=== PATIENT | male | born 1950 | race Caucasian/White ===

== ENCOUNTER 2023-01-09 11:34 | Outpatient (OUT) | payer MEDICARE, SELFPAY ==
[2023-01-09 12:40] LABS: Basophils Absolute Auto 0.1 10^3/uL (0.0-0.1); Basophils Percent Auto 1.1 % (0.2-2.0); Eosinophils Absolute Auto 0.2 10^3/uL (0.0-0.7); Eosinophils Percent Auto 3.1 % (0.9-7.0); Hematocrit 43.9 % (42.0-54.0); Hemoglobin 15.7 g/dL (14.0-18.0); Immature Granulocytes Abs Auto 0.02 10^3/uL (0.00-0.03); Immature Granulocytes Pct Auto 0.3 % (0.0-0.5); Lymphocytes Absolute Auto 1.9 10^3/uL (1.2-3.8); Mean Corpuscular HGB Conc 35.8 g/dL (29.9-35.2); Mean Corpuscular Hemoglobin 33.2 pg (25.9-34.0); Mean Corpuscular Volume 92.8 fL (80.0-94.0); Mean Platelet Volume 9.8 fL (9.5-13.5); Monocytes Absolute Auto 0.6 10^3/uL (0.3-0.8); Monocytes Percent Auto 7.9 % (1.7-12.0); Neutrophils Absolute Auto 4.7 10^3/uL (1.4-6.5); Neutrophils Percent Auto 62.6 % (43.0-75.0); Platelet Count 226 10^3/uL (150-450); Red Blood Count 4.73 10^6/uL (4.70-6.10); Red Cell Distribution Width 12.1 % (11.0-15.0); White Blood Count 7.5 10^3/uL (4.0-11.0)
[2023-01-09 13:40] LABS: Alanine Aminotransferase 39 U/L (16-63); Anion Gap 12.7; BUN Creatinine Ratio 19.8; Calcium 9.1 mg/dL (8.5-10.1); Carbon Dioxide 28.8 mmol/L (21.0-32.0); Chloride 105 mmol/L (98-107); Chol HDL Ratio 3.9; Cholesterol 165 mg/dL (<=200); Estimated GFR (African America >60 (>=60); Estimated GFR (Non-African Ame >60 (>=60); Glucose 103 mg/dL (74-106); HDL Cholesterol 42 mg/dL (40-60); LDL Cholesterol Calculated 103.4 mg/dL; Potassium 4.5 mmol/L (3.5-5.1); Sodium 142 mmol/L (136-145); Triglycerides 98 mg/dL (<=150); VLDL CHOLESTEROL 19.6 mg/dL
[2023-01-09 13:54] LABS: Prostate Specific Antigen Scrn 1.67 ng/mL (<=4.00)
[2023-01-09 15:08] LABS: Estimated Average Glucose 100 mg/dL; Glycohemoglobin A1C 5.1 % (4.5-6.2)
== END 2023-01-09 11:35 | disposition home or self-care (01) ==
LOC: LAB 11:40
PROVIDERS: PCP Internal Medicine; Visit Provider Internal Medicine
DX: I10 Essential (primary) hypertension (principal); E78.00 Pure hypercholesterolemia, unspecified; Z12.5 Encounter for screening for malignant neoplasm of prostate; R73.01 Impaired fasting glucose; Z79.899 Other long term (current) drug therapy
CPT/HCPCS: 36415; 80048; 80061; 83036; 84460; 85025; G0103

== ENCOUNTER 2024-01-11 11:22 | Outpatient (OUT) | payer MEDICARE, SELFPAY ==
[2024-01-11 11:39] LABS: Basophils Absolute Auto 0.1 10^3/uL (0.0-0.1); Basophils Percent Auto 0.8 % (0.2-2.0); Eosinophils Absolute Auto 0.2 10^3/uL (0.0-0.7); Eosinophils Percent Auto 2.6 % (0.9-7.0); Hematocrit 46.5 % (42.0-54.0); Hemoglobin 16.5 g/dL (14.0-18.0); Immature Granulocytes Abs Auto 0.02 10^3/uL (0.00-0.03); Immature Granulocytes Pct Auto 0.3 % (0.0-0.5); Lymphocytes Absolute Auto 1.8 10^3/uL (1.2-3.8); Mean Corpuscular HGB Conc 35.5 g/dL (29.9-35.2); Mean Corpuscular Hemoglobin 31.7 pg (25.9-34.0); Mean Corpuscular Volume 89.4 fL (80.0-94.0); Mean Platelet Volume 9.2 fL (9.5-13.5); Monocytes Absolute Auto 0.6 10^3/uL (0.3-0.8); Monocytes Percent Auto 8.2 % (1.7-12.0); Neutrophils Percent Auto 65.1 % (43.0-75.0); Platelet Count 208 10^3/uL (150-450); Red Cell Distribution Width 11.8 % (11.0-15.0); White Blood Count 7.7 10^3/uL (4.0-11.0)
[2024-01-11 12:21] LABS: Alanine Aminotransferase 37 U/L (16-63); Albumin Globulin Ratio 1.2; Albumin Level 3.7 g/dL (3.4-5.0); Alkaline Phosphatase 80 U/L (46-116); Anion Gap 12.8; Aspartate Amino Transferase 22 U/L (15-37); BUN Creatinine Ratio 13.3; Bilirubin Total 0.9 mg/dL (0.2-1.0); Calcium 8.8 mg/dL (8.5-10.1); Carbon Dioxide 25.3 mmol/L (21.0-32.0); Chloride 105 mmol/L (98-107); Chol HDL Ratio 3.4; Cholesterol 149 mg/dL (<=200); Estimated GFR (African America >60 (>=60 mL/min/1.73m^2); Estimated GFR (Non-African Ame >60 (>=60 mL/min/1.73m^2); Globulin 3.1 g/dL; Glucose 111 mg/dL (74-106); HDL Cholesterol 44 mg/dL (40-60); LDL Cholesterol Calculated 84.8 mg/dL; Potassium 4.1 mmol/L (3.5-5.1); Sodium 139 mmol/L (136-145); Total Protein 6.8 g/dL (6.4-8.2); Triglycerides 101 mg/dL (<=150); VLDL CHOLESTEROL 20.2 mg/dL
[2024-01-11 12:36] LABS: Prostate Specific Antigen Scrn 1.73 ng/mL (<=4.00)
[2024-01-11 12:41] LABS: Estimated Average Glucose 100 mg/dL; Glycohemoglobin A1C 5.1 % (4.5-6.2)
== END 2024-01-11 11:23 | disposition home or self-care (01) ==
LOC: LAB 11:24
PROVIDERS: PCP Internal Medicine; Visit Provider Internal Medicine
DX: R73.01 Impaired fasting glucose (principal); E78.00 Pure hypercholesterolemia, unspecified; I10 Essential (primary) hypertension; Z12.5 Encounter for screening for malignant neoplasm of prostate
CPT/HCPCS: 36415; 80053; 80061; 83036; 85025; G0103

== ENCOUNTER 2025-01-14 12:09 | Outpatient (OUT) | payer MEDICARE, SELFPAY ==
--- OUTSIDE RECORDS SUMMARY | 2025-01-14 12:20 | XMS_ITS | CCD ---
Author Organization [facility] Care Team Providers Care Cooperer Name Role Phone Mark Mendoza Unavailable DO Ze Howard Primary Care Provider MD Mandeep Ortiz Attending Provider [phone] Emilee Schwab Unavailable MD Mark Mendoza Attending Provider LEE, DR KUNZ Admitting Unavailable BALL, DR KUNZ Attending Unavailable BALL, DR KUNZ Primary Care Unavailable LEE, DR KUNZ Consulting Unavailable BALL, DR KUNZ Admitting Unavailable BALL, DR KUNZ Attending Unavailable BALL, DR KUNZ Primary Care Unavailable BALL, DR KUNZ Consulting Unavailable WEST, DR INGRID Stuart Consulting Unavailable CARRASQUILLO, DR MICHELLE Brock Admitting Unavailable CARRASQUILLO, DR MICHELLE Brock Attending Unavailable BALL, DR KUNZ Primary Care Unavailable PENNY, DR MARGARITA Abel Consulting Unavailable CARRASQUILLO, DR MICHELLE Brock Consulting Unavailable CARRASQUILLO, DR MICHELLE Brock Admitting Unavailable CARRASQUILLO, DR MICHELLE Brock Attending Unavailable BALL, DR KUNZ Primary Care Unavailable Mary Jo Kim Unavailable DO Ze Howard Primary Care Provider [phone] MD Mark Mendoza Attending Provider Ze Howard Unavailable DO Ze Howard Primary Care Provider MD Jesus Aiken II Attending Provider Jesus Aiken II Unavailable Mark Harris Unavailable DO Ze Howard Primary Care Provider [phone] MD Mark Harris Attending Provider MD Jesus Aiken II Attending Provider DO Ze Howard Primary Care Provider MD Mark Harris Attending Provider MD Jesus Aiken II Attending Provider BallDO Kunz Primary Care Provider MD Mark Harris Attending Provider Ball DO, Ze Primary Care Provider Mark Harris MD Attending Provider Ball DO, Ze Primary Care Provider Ball DO, Ze Attending Provider Mark Harris MD Attending Provider Mark Harris MD Other Provider Mark Harris Admitting Unavailable Feltmelissa, Mark Attending Unavailable Ball, Ze Primary Care Unavailable Feltmelissa, Mark Admitting Unavailable Felter, Mark Attending Unavailable Ball, Ze Primary Care Unavailable Felter, Mark Admitting Unavailable Felter, Mark Attending Unavailable Ball, Ze Primary Care Unavailable Felter, Mark Admitting Unavailable Felter, Mark Attending Unavailable Ball, Ze Primary Care Unavailable Felter, Mark Admitting Unavailable Felter, Mark Attending Unavailable Ball, Ze Primary Care Unavailable Allergies Allergy Classification Reported Allergen(s) Allergy Type Date of Onset Reaction(s) Facility (20 sources) Penicillin Drug Allergy Unknown, lip swelling [facility] Other (8 sources) Penicillins; Translations: [Penicillins] Allergy to substance 01-27-20 Swelling [facility] (3 sources) Allergies Reconciled Propensity to adverse reactions Unknown [facility] Other (3 sources) Substance with penicillin structure and antibacterial mechanism of action (substance) Drug allergy Unknown [facility] Other (3 sources) patient allergy list reviewed by nurse or physicia Propensity to adverse reactions 01-25-20 Comment:Done [facility] Other Medications Current Medications Medication Drug Class(es) Dates Sig (Normalized) Sig (Original) acetaminophen 325 mg / oxyCODONE hydrochloride 5 mg oral tablet (10 sources) Opioid Agonist Start: 02-01-2022 take 1 tablet by mouth every four hours as needed for pain Percocet 5-325 MG 1 tablet as needed for pain Orally up to every 4 hrs for 5 days MARC: [id number] Jan, Active take 1 tablet by mouth every fou r to six hours as needed Aspir-81 81 MG (20 sources) take 1 tablet by mouth once cindy y take 1 tablet by mouth once cindy y Aspir-81 81 MG 1 tablet Orally Once a day for 30 day(s) Active aspirin 81 mg oral tablet (20 sources) Platelet Aggregation Inhibitor, Nonsteroidal Anti-inflammatory Drug Start: 01-26-2022 take 1 capsule by mouth once daily Aspirin 81 mg Capsule Active 81 MG PO Daily January 26, 2022 12:00am Complies with drug therapy atorvastatin 20 mg oral tablet (20 sources) HMG-CoA Reductase Inhibitor Start: 05-02-2024 Atorvastatin 20 mg tablet Active 0 .ROUTE .COMPLEX May 02, 2024 7:52am TAKE 1 TABLET DAILY EVERY EVENING Complies with drug therapy Start: 01-26-2022 End: 05-02-2024 take 1 tablet by mouth once daily Atorvastatin 20 mg tablet Discontinued 20 MG PO Daily January 26, 2022 12:00am May 02, 2024 7:52am benazepril hydrochloride 10 mg oral tablet (20 sources) Angiotensin Converting Enzyme Inhibitor Start: 05-02-2024 Benazepril 10 mg tablet Active 0 .ROUTE .COMPLEX 90 May 02, 2024 7:52am TAKE 1 TABLET DAILY Complies with drug therapy Start: 05-02-2024 Benazepril 10 mg tablet Active 0 .ROUTE .COMPLEX 90 May 02, 2024 7:52am TAKE 1 TABLET DAILY Start: 01-26-2022 End: 05-02-2024 take 1 tablet by mouth once daily Benazepril 10 mg tablet Discontinued 10 MG PO Daily January 26, 2022 12:00am May 02, 2024 7:52am calcium carbonate 1250 mg chewable tablet (20 sources) Start: 07-07-2023 take 1 tablet by mouth twice daily Calcium Carbonate 500 mg calcium (1,250 mg) tablet,chewable Active 500 MG PO Twice daily July 07, 2023 12:00am Complies with drug therapy Start: 07-07-2023 take 500 mg by mouth four times daily Calcium Carbonate Active 500 MG PO Four times daily July 07, 2023 12:00am take 1 tablet by aniya th four times daily Calcium Carbonate 500 MG 1 tablet Orally four times a day for 30 day(s) Active ciprofloxacin 500 mg oral tablet (3 sources) Quinolone Antimicrobial Start: 02-01-2022 take 1 tablet by mouth every twelve hours Cipro 500 MG 1 tablet Orally every 12 hrs for 2 day(s) Jan, Active meloxicam 15 mg oral tablet (20 sources) Nonsteroidal Anti-inflammatory Drug Start: 02-22-2024 take 1 tablet by mouth once daily Meloxicam 15 mg tablet Active 0 .ROUTE .COMPLEX February 22, 2024 9:15am TAKE 1 TABLET BY MOUTH EVERY DAY FOR 90 DAYS Complies with drug therapy Start: 11-10-2022 End: 02-22-2024 take 1 tablet by mouth once daily Meloxicam 15 mg tablet Discontinued 15 MG PO Daily February 28, 2023 1:00am February 22, 2024 9:15am methylPREDNISolone 4 mg oral tablet (2 sources) Corticosteroid Start: 05-16-2022 methylPREDNISolone 4 MG as directed Orally for 6 days May, Active 24 hr metoprolol succinate 25 mg extended release oral tablet (20 sources) beta-Adrenergic Martir Start: 05-02-2024 Metoprolol Succinate 25 mg tablet extended release 24 hr Active 0 .ROUTE .COMPLEX May 02, 2024 7:51am TAKE 1 TABLET DAILY Complies with drug therapy Start: 05-02-2024 Metoprolol Suc cinate 25 mg tablet extended release 24 hr Active 0 .ROUTE .COMPLEX May 02, 2024 7:51am TAKE 1 TABLET DAILY Start: 01-26-2022 End: 05-02-2024 take 1 tablet by mouth once daily Metoprolol Succinate 25 mg tablet extended release 24 hr Discontinued 25 MG PO Daily January 26, 2022 12:00am May 02, 2024 7:51am Multi Vitamin/Minerals (20 sources) Multi Vitamin/Mi nerals as directed Orally Once a day Active naproxen sodium 220 mg oral tablet (5 sources) Nonsteroidal Anti-inflammatory Drug take 1 tablet by mouth every twelve hours at mealtime as needed Naproxen Sodium 220 MG 1 tablet with food or milk as needed Orally every 12 hrs Active tamsulosin hydrochloride 0.4 mg oral capsule (20 sources) alpha-Adrenergic Martir Start: Tamsulosin 0.4 mg capsule Active 0 .ROUTE .COMPLEX 90 May 02, 2024 7:52am TAKE 1 CAPSULE DAILY Complies with drug therapy Start: 05-02-2024 Tamsulosin 0.4 mg capsule Active 0 .ROUTE .COMPLEX 90 May 02, 2024 7:52am TAKE 1 CAPSULE DAILY Start: 01-26-2022 End: 05-02-2024 take 1 capsule by mouth once daily Tamsulosin 0.4 mg capsule Discontinued 0.4 MG PO Daily January 26, 2022 12:00am May 02, 2024 7:53am triamcinolone acetonide 0.005 mg/mg topical ointment (20 sources) Corticosteroid Start: 03-22-2024 Triamcinolone Acetonide 0.5 % ointment Active 0 .ROUTE .COMPLEX March 22, 2024 7:48am APPLY 1 APPLICATION EXTERNALLY TWICE A DAY FOR 90 DAYS Complies with drug therapy Start: 03-22-2024 Triamcinolone Acetonide 0.5 % ointment Active 0 .ROUTE .COMPLEX 45 March 22, 2024 7:48am APPLY 1 APPLICATION EXTERNALLY TWICE A DAY FOR 90 DAYS Start: 07-07-2023 End: 03-22-2024 Triamcinolone Acetonide 0.5 % ointment Discontinued 1 APPLIC TOPICAL Twice daily as needed for excema July 07, 2023 12:00am March 22, 2024 7:49am Start: 11-10-2022 Kenalog-40 Nov, 120 mg Start: 08-04-2022 Triamcinolone Acetonide 0.5 % 1 application Externally Twice a day for 90 days Jul, Active Start: 04-23-2018 Kenalog -40 mg Apr, 40 mg Start: 02-28-2017 Kenalog -40 mg Feb, Warfarin (7 sources) Vitamin K Antagonist take 1 tablet by mouth once daily Completed/Discontinued Medications Medication Drug Class(es) Dates Sig (Normalized) Sig (Original) diclofenac sodium 0.01 mg/mg topical gel (20 sources) Nonsteroidal Anti-inflammatory Drug Start: 07-07-2023 End: 10-29-2024 Diclofenac Sodium (Voltaren Arthritis Pain) 1 % gel Discontinued 2 GM TOPICAL Daily as needed for pain July 07, 2023 12:00am October 29, 2024 7:56am Apply 1-2 grams to the affected area Externally 4-5 times a day; Start: 11-10-2022 Voltaren 1 % A pply 1-2 grams to the affected area Externally 4-5 times a day for 30 days Nov, Active Start: 11-10-2022 Voltaren 1 % A pply 1-2 grams to the affected area Externally 4-5 times a day for 30 days Nov, Active Start: 01-26-2022 End: 02-28-2023 take 1 tablet by mouth once daily Diclofenac Sodium 75 mg tablet,delayed release (DR/EC) Discontinued 75 MG PO Daily January 26, 2022 12:00am February 28, 2023 10:24am take 1 tablet by aniya th every twelve hours Diclofenac Sodium 75 MG 1 tablet with food or milk Orally Twice a day for 30 day(s) Active traMADol hydrochloride 50 mg oral tablet (20 sources) Opioid Agonist Start: 01-26-2022 End: 02-28-2023 take 1 tablet by mouth once daily as needed for pain Tramadol 50 mg tablet Discontinued 50 MG PO Daily as needed for Pain January 26, 2022 12:00am February 28, 2023 10:24am Problems Active Problems Problem Classification Problem Date Documented Date Episodic/Chronic Allergic reactions (4 sources) Dermatitis, unspecified; Translations: [Contact dermatitis] Episodic Crushing injury or internal injury (6 sources) Traumatic pneumothorax without open wound into thorax; Translations: [Traumatic pneumothorax without mention of open wound into thorax] Episodic Diabetes mellitus with complications (6 sources) Hyperglycemia due to type 2 diabetes mellitus; Translations: [Type 2 diabetes mellitus with hyperglycemia] Onset: 04-10-1959 Chronic Diabetes mellitus without complication (3 sources) Type 2 diabetes mellitus without complication; Translations: [Diabetes mellitus without mention of complication, type II or unspecified type, not stated as uncontrolled] Chronic Diabetes mellitus without complication (20 sources) Impaired fasting glycemia; Translations: [Impaired fasting glucose] Episodic Disorders of lipid metabolism (20 sources) Pure hypercholesterolemia, unspecified; Translations: [Pure hypercholesterolemia] Onset: 02-11-2015 Chronic Essential hypertension (20 sources) Essential (primary) hypertension; Translations: [Essential hypertension] Onset: 04-10-1959 Chronic Fracture of lower limb (20 sources) Fracture of upper end of tibia; Translations: [Fracture of upper end of tibia] Episodic Genitourinary symptoms and ill-defined conditions (1 source) Nocturia Episodic Hyperplasia of prostate (20 sources) Benign prostatic hypertrophy with outflow obstruction; Translations: [Hypertrophy (benign) of prostate with urinary obstruction and other lower urinary tract symptoms [LUTS]] Onset: 06-13-2017 Chronic Immunizations and screening for infectious disease (4 sources) Encounter for immunization; Translations: [Vaccination given] Episodic Osteoarthritis (20 sources) Osteoarthritis of knee; Translations: [Unilateral primary osteoarthritis, right knee] Onset: 10-14-2024 Chronic Other aftercare (2 sources) Other senior care (current) drug therapy; Translations: [[employer] CURRENT DRUG THERAPY] Onset: 01-10-2022 Episodic Other aftercare (3 sources) Long-term current use of drug therapy; Translations: [Other senior care (current) drug therapy] Episodic Other circulatory disease (3 sources) Elevated blood-pressure reading without diagnosis of hypertension; Translations: [Elevated blood-pressure reading, without diagnosis of hypertension] Episodic Other congenital anomalies (3 sources) Congenital pes planus; Translations: [Congenital pes planus, unspecified foot] Onset: 11-23-2015 Chronic Other congenital anomalies (3 sources) Congenital spondylolysis of lumbosacral region; Translations: [Congenital spondylolysis, lumbosacral region] Onset: 12-17-2015 Chronic Other connective tissue disease (1 source) Other enthesopathies, not elsewhere classified; Translations: [OTHER ENTHESOPATHIES NEC] Onset: 01-22-2022 Episodic Other fractures (12 sources) Closed fracture of rib; Translations: [FRACTURE RIB NOS-CLOSED] Episodic Other injuries and conditions due to external causes (3 sources) History of fall; Translations: [History of falling] Episodic Other nervous system disorders (20 sources) Chronic pain; Translations: [Other chronic pain] 11-21-2023 Chronic Other nervous system disorders (17 sources) Other chronic pain; Translations: [Other chronic pain] Onset: 01-23-2024 Chronic Other non-traumatic joint disorders (4 sources) Pain in left shoulder; Translations: [PAIN IN LEFT SHOULDER] Onset: 01-20-2022 Episodic Other non-traumatic joint disorders (3 sources) Shoulder joint pain; Translations: [Pain in left shoulder] Episodic Other nutritional; endocrine; and metabolic disorders (12 sources) Obese class II; Translations: [Body mass index (BMI) 38.0-38.9, adult] Onset: 04-10-1959 Chronic Other nutritional; endocrine; and metabolic disorders (3 sources) Body mass index 40+ - severely obese; Translations: [Body mass index (BMI) 40.0-44.9, adult] Onset: 04-10-1959 Chronic Other nutritional; endocrine; and metabolic disorders (17 sources) Obesity; Translations: [Obesity, unspecified] 07-10-2023 Chronic Other nutritional; endocrine; and metabolic disorders (3 sources) Morbid obesity; Translations: [Morbid (severe) obesity due to excess calories] Chronic Other nutritional; endocrine; and metabolic disorders (5 sources) Obesity, unspecified; Translations: [Obesity, unspecified] 01-11-2024 Chronic Other screening for suspected conditions (not mental disorders or infectious disease) (18 sources) Encounter for screening for malignant neoplasm of prostate; Translations: [Patient encounter status] Onset: 01-10-2022 Episodic Comment on above: PSA: 1.Jan, 1.Jan, Other skin disorders (3 sources) Vesicular eczema of hands and/or feet; Translations: [Dyshidrosis [pompholyx]] Episodic Other skin disorders (3 sources) Hypertrophic condition of skin; Translations: [Other hypertrophic disorders of the skin] Episodic Other upper respiratory infections (6 sources) Acute maxillary sinusitis; Translations: [Acute maxillary sinusitis, unspecified] Onset: 06-13-2017 Episodic Residual codes; unclassified (6 sources) Other specified postprocedural states Episodic Residual codes; unclassified (3 sources) Tobacco user; Translations: [Tobacco use] Episodic Spondylosis; intervertebral disc disorders; other back problems (20 sources) Lumbosacral spondylosis without myelopathy; Translations: [Spondylosis without myelopathy or radiculopathy, lumbar region] Onset: 12-18-2023 Chronic Sprains and strains (9 sources) Strain of muscle(s) and tendon(s) of the rotator cuff of left shoulder, initial encounter; Translations: [Strain of muscle(s) and tendon(s) of the rotator cuff of left shoulder, subsequent encounter] Episodic Superficial injury; contusion (6 sources) Contusion of left foot, initial encounter; Translations: [Contusion of left heel] 08-08-2024 Episodic Unclassified (3 sources) Long-term current use of drug therapy; Translations: [Long-term (current) use of other medications] Onset: 09-18-2017 Unclassified (1 source) Call Dr. Miles office to schedule a follow up appointment if you do not already have one scheduled Viral infection (3 sources) Verruca vulgaris; Translations: [Viral warts, unspecified] Episodic Viral infection (3 sources) Disease caused by 2019-nCoV; Translations: [COVID-19] Past or Other Problems Problem Classification Problem Date Documented Date Episodic/Chronic Bacterial infection; unspecified site (3 sources) Bacterial infectious disease; Translations: [Bacterial infection, unspecified, in conditions classified elsewhere and of unspecified site] Onset: 06-14-19 18 Episodic E Codes: Adverse effects of medical drugs (3 sources) Lipid-lowering drug adverse reaction; Translations: [Adverse effect of antihyperlipidemic and antiarteriosclerotic drugs, initial encounter] Onset: 02-01-20 16 Episodic Inflammation; infection of eye (except that caused by tuberculosis or sexually transmitteddisease) (3 sources) Viral pharyngoconjunctivitis ; Translations: [Viral pharyngoconjunctivitis] Onset: 09-08-19 18 Episodic Other connective tissue disease (3 sources) Plantar fascial fibromatosis; Translations: [Plantar fascial fibromatosis] Onset: 11-23-19 16 Episodic Other connective tissue disease (3 sources) Myalgia/myositis - multiple; Translations: [Unspecified myalgia and myositis] Onset: 02-12-20 15 Episodic Other non-traumatic joint disorders (3 sources) Arthralgia of the lower leg; Translations: [Pain in right knee] Onset: 02-08-20 17 Episodic Residual codes; unclassified (3 sources) Requires influenza virus vaccination; Translations: [Need for prophylactic vaccination and inoculation, Influenza] Onset: 01-23-20 18 Episodic Spondylosis; intervertebral disc disorders; other back problems (3 sources) Low back pain; Translations: [Low back pain, unspecified] Onset: 12-17-19 16 Episodic Results Test Name Value Interpretation Reference Range Facility X-ray reportOrdered By: Suleman Balderrama on 10-14-2024 Study report [facility] [address] [place] [address] XRay Report Signed Patient: Bruce Stanton MR#: [id number] : 1950 Acct:[id number] Age/Sex: 74 / M ADM Date: 5 Loc: SOXD Room: Type: REG CLI Attending Dr: Mark Harris MD Copies to: Mark Harris MD~ Ordering Provider: Mark Harris MD Date of Service: 10/14/24 XR/XR knee RT 2V: M17.11 - Unilateral primary osteoarthritis, right knee XR knee RT 2V 10/14/2024 10:13 AM SIGNS AND SYMPTOMS: Right knee pain PROTOCOL: Frontal and lateral radiographs of the right knee COMPARISON: 05/16/2023 FINDINGS: There is severe narrowing of the medial weightbearing joint space which is worsewhen compared with prior exam. There is chondrocalcinosis of menisci suggestingunderlying CPPD. There is significant patellofemoral joint space loss. There is a small joint effusion. No soft tissue swelling. No fracture. XR/XR knee RT 2V IMPRESSION: Worsening degenerative changes of the right knee, greatest in the medial weightbearing compartment. Impression dictated by: Suleman Balderrama M.D. 10/14/2024 1:53 PM Dictation Location: [place] [address] Transcribed By: [facility] 10/14/24 1353 Dictated By: Suleman Balderrama II, MD 10/14/24 1352 Signed By: 10/14/24 [facility] Work Phone: XR knee RT 2Von 10-14-2024 XR knee RT 2V [facility] [address] [place] [address] XRay Report Signed Patient: Bruce Stanton MR#: [id number] : 1950 Acct:[id number] Age/Sex: 74 / M ADM Date: 10/14/24 Loc: [facility] Room: Type: [facility] CLI Attending Dr: Mark Harris MD Copies to: Mark Harris MD Ordering Provider: Mark Harris MD Date of Service: 10/14/24 XR/XR knee RT 2V: M17.11 - Unilateral primary osteoarthritis, right knee XR knee RT 2V 10/14/2024 10:13 AM SIGNS AND SYMPTOMS: Right knee pain PROTOCOL: Frontal and lateral radiographs of the right knee COMPARISON: 05/16/2023 FINDINGS: There is severe narrowing of the medial weightbearing joint space which is worse when compared with prior exam. There is chondrocalcinosis of menisci suggesting underlying CPPD. There is significant patellofemoral joint space loss. There is a small joint effusion. No soft tissue swelling. No fracture. XR/XR knee RT 2V IMPRESSION: Worsening degenerative changes of the right knee, greatest in the medial weightbearing compartment. Impression dictated by: Suleman Balderrama M.D. 10/14/2024 1:53 PM Dictation Location: [place] [address] Transcribed By: [facility] 10/14/24 1353 Dictated By: Suleman Balderrama II, MD 10/14/24 1352 Signed By: 10/14/24 1353 Normal [facility] Basophils Auto (Bld) [#/Vol] on 01-11-2024 Basophils (Bld) [#/Vol] 0.1 10 3/uL 0.0-0.1 [facility] Basophils (Bld) [#/Vol] Automated basophil count 0.0-0.1 [facility] Basophils/100 WBC Auto (Bld) on 01-11-2024 Basophils/100 WBC (Bld) 0.8 % 0.2-2.0 [facility] Basophils/100 WBC (Bld) Automated basophil % 0.2-2.0 [facility] Cholesterol in LDL Calc [Mas s/Vol]on 01-11-2024 Cholesterol in LDL [Mass/Vol] 84.8 mg/dL [facility] Comment on above: <100 mg/dl [id number] 0-129 mg/dl NEAR OR ABOVE [id number] mg/dl BORDERLINE [id number] mg/dl HIGH>190 mg/dl VERY HIGH Cholesterol in LDL [Mass/Vol] Cholesterol in LDL [Mass/volume] in Serum or Plasma by calculation [facility] Comment on above: <100 mg/dl [id number] 0-129 mg/dl NEAR OR ABOVE [id number] mg/dl BORDERLINE [id number] mg/dl HIGH>190 mg/dl VERY HIGH Cholesterol in VLDL Calc [Ma ss/Vol]on 01-11-2024 Cholesterol in VLDL [Mass/Vol] 20.2 mg/dL [facility] Cholesterol in VLDL [Mass/Vol] Cholesterol in VLDL [Mass/volume] in Serum or Plasma by calculation [facility] Eosinophils/100 WBC Auto (Bl d)on 01-11-2024 Eosinophils/100 WBC (Bld) 2.6 % 0.9-7.0 [facility] Eosinophils/100 WBC (Bld) Automated eosinophil % 0.9-7.0 [facility] Erythrocyte distribution wid th Auto (RBC) [Ratio]on 01-11-2024 Erythrocyte distribution width (RBC) [Ratio] 11.8 % 11.0-15.0 [facility] Erythrocyte distribution width (RBC) [Ratio] Erythrocyte distribution width [Ratio] by Automated count 11.0-15.0 [facility] Estimated glomerular filtrat ion rate (GFR) non- Americanon 01-11-2024 GFR/1.73 sq M.predicted among non-blacks MDRD (S/P/Bld) [Vol rate/Area] mL/min/{1.73_m2} >=60 mL/min/1.73 m 2 [facility] GFR/1.73 sq M.predicted among non-blacks MDRD (S/P/Bld) [Vol rate/Area] Estimated glomerular filtration rate (GFR) non- >=60 mL/min/1.73 m 2 [facility] Globulin Calc (S) [Mass/Vol] on 01-11-2024 Globulin (S) [Mass/Vol] 3.1 g/dL [facility] Globulin (S) [Mass/Vol] Serum globulin measurement by calculation (mass/volume) [facility] Glucose mean value [Mass/vol ume] in Blood Estimated from glycated hemoglobinon 01-11-2024 Average glucose Estimated from glycated hemoglobin (Bld) [Mass/Vol] 100 mg/dL [facility] Average glucose Estimated from glycated hemoglobin (Bld) [Mass/Vol] Glucose mean value [Mass/volume] in Blood Estimated from glycated hemoglobin [facility] Hematocrit Auto (Bld) [Volum e fraction]on 01-11-2024 Hematocrit (Bld) [Volume fraction] 46.5 % 42.0-54.0 [facility] Hematocrit (Bld) [Volume fraction] Hematocrit [Volume Fraction] of Blood by Automated count 42.0-54.0 [facility] Hemoglobin [Mass/volume] in Bloodon 01-11-2024 Hemoglobin (Bld) [Mass/Vol] 16.5 g/dL 14.0-18.0 [facility] Hemoglobin (Bld) [Mass/Vol] Hemoglobin [Mass/volume] in Blood 14.0-18.0 [facility] Laboratory - Chemistry and C hemistry - challengeon 01-11-2024 Albumin [Mass/Vol] 3.7 g/dL 3.4-5.0 [facility] ALP [Catalytic activity/Vol] 80 U/L 46-116 [facility] ALT [Catalytic activity/Vol] 37 U/L 16-63 [facility] AST [Catalytic activity/Vol] 22 U/L 15-37 [facility] Bilirubin [Mass/Vol] 0.9 mg/dL 0.2-1.[address] [facility] Calcium [Mass/Vol] 8.8 mg/dL 8.5-10.1 [facility] Chloride [Moles/Vol] 105 mmol/L 98-[address] [facility] Cholesterol [Mass/Vol] 149 mg/dL <=200 [facility] Cholesterol in HDL [Mass/Vol] 44 mg/dL 40-60 [facility] Comment on above: > or =60 mg/dl - LOW CARDIOVASCULAR RISK<40 mg/dl - HIGH CARDIOVASCULAR RISK CO2 [Moles/Vol] 25.3 mmol/L 21.0-32.0 [facility] Creatinine [Mass/Vol] 0.98 mg/dL 0.70-1.30 [facility] GFR/1.73 sq M.predicted MDRD (S/P/Bld) [Vol rate/Area] mL/min/{1.73_m2} >=60 mL/min/1.73 m 2 [facility] Glucose [Mass/Vol] 111 mg/dL High 74-106 [facility] Potassium [Moles/Vol] 4.1 mmol/L 3.5-5.1 [facility] Protein [Mass/Vol] 6.8 g/dL 6.4-8.2 [facility] Sodium [Moles/Vol] 139 mmol/L 136-145 [facility] Triglyceride [Mass/Vol] 101 mg/dL <=150 [facility] Urea nitrogen [Mass/Vol] 13.0 mg/dL 7.0-18.0 [facility] Urea nitrogen/Creatinine [Mass ratio] 13.3 mg/mg [facility] Laboratory - Hematology and Cell countson 01-11-2024 HbA1c (Bld) [Mass fraction] 5.1 % 4.5-6.2 [facility] Comment on above: ADA RECOMMENDED LIMI T 4.0 - 6.0ADA THERAPEUTIC TARGET < 7.0ACTION SUGGESTED> 7.0 Immature granulocytes/100 WBC (Bld) 0.3 % 0.0-0.5 [facility] Leukocytes [#/volume] correc vero for nucleated erythrocytes in Blood by Automated counon 01-11-2024 WBC corrected for nucl RBC Auto (Bld) [#/Vol] 7.7 10 3/uL 4.0-11.0 [facility] WBC corrected for nucl RBC Auto (Bld) [#/Vol] Leukocytes [#/volume] corrected for nucleated erythrocytes in Blood by Automated coun 4.0-11.0 [facility] Lymphocytes Auto (Bld) [#/Vo l]on 01-11-2024 Lymphocytes (Bld) [#/Vol] 1.8 10 3/uL 1.2-3.8 [facility] Lymphocytes (Bld) [#/Vol] Lymphocytes [#/volume] in Blood by Automated count 1.2-3.8 [facility] Lymphocytes/100 WBC Auto (Bl d)on 01-11-2024 Lymphocytes/100 WBC (Bld) 23.0 % 20.5-60.0 [facility] Lymphocytes/100 WBC (Bld) Lymphocytes/100 leukocytes in Blood by Automated count 20.5-60.0 [facility] MCH Auto (RBC) [Entitic mass ]on 01-11-2024 MCH (RBC) [Entitic mass] 31.7 pg 25.9-34.0 [facility] MCH (RBC) [Entitic mass] MCH [Entitic mass] by Automated count 25.9-34.0 [facility] MCHC Auto (RBC) [Mass/Vol]on 01-11-2024 MCHC (RBC) [Mass/Vol] 35.5 g/dL High 29.9-35.2 [facility] MCHC (RBC) [Mass/Vol] MCHC [Mass/volume] by Automated count High 29.9-35.2 [facility] MCV Auto (RBC) [Entitic vol] on 01-11-2024 MCV (RBC) [Entitic vol] 89.4 fL 80.0-94.0 [facility] MCV (RBC) [Entitic vol] MCV [Entitic volume] by Automated count 80.0-94.0 [facility] Monocytes Auto (Bld) [#/Vol] on 01-11-2024 Monocytes (Bld) [#/Vol] 0.6 10 3/uL 0.3-0.8 [facility] Monocytes (Bld) [#/Vol] Automated blood monocyte count 0.3-0.8 [facility] Monocytes/100 WBC Auto (Bld) on 01-11-2024 Monocytes/100 WBC (Bld) 8.2 % 1.7-12.0 [facility] Monocytes/100 WBC (Bld) Automated monocyte % 1.7-12.0 [facility] Neutrophils Auto (Bld) [#/Vo l]on 01-11-2024 Neutrophils (Bld) [#/Vol] 5.0 10 3/uL 1.4-6.5 [facility] Neutrophils (Bld) [#/Vol] Neutrophils [#/volume] in Blood by Automated count 1.4-6.5 [facility] Neutrophils/100 WBC Auto (Bl d)on 01-11-2024 Neutrophils/100 WBC (Bld) 65.1 % 43.0-75.0 [facility] Neutrophils/100 WBC (Bld) Automated neutrophil % 43.0-75.0 [facility] No Panel Informationon 01-10 Eosinophils # (Auto) 0.2 10 3/uL 0.0-0.7 [facility] Immature Granulocyte # (Auto) 0.02 10 3/uL 0.00-0.03 [facility] Prostate Specific Antigen Screen 1.73 ng/mL <=4.00 [facility] Platelet mean volume Auto (B ld) [Entitic vol]on 01-11-2024 Platelet mean volume (Bld) [Entitic vol] 9.2 fL Low 9.5-13.5 [facility] Platelet mean volume (Bld) [Entitic vol] Platelet mean volume [Entitic volume] in Blood by Automated count Low 9.5-13.5 [facility] Platelets Auto (Bld) [#/Vol] on 01-11-2024 Platelets (Bld) [#/Vol] 208 10 3/uL 150-450 [facility] Platelets (Bld) [#/Vol] Platelets [#/volume] in Blood by Automated count 150-450 [facility] RBC Auto (Bld) [#/Vol]on RBC (Bld) [#/Vol] 5.20 10 6/uL 4.70-6.10 [facility] RBC (Bld) [#/Vol] Erythrocytes [#/volu me] in Blood by Automated count 4.70-6.10 [facility] Serum or plasma albumin/glob ulin mass ratioon 01-11-2024 Albumin/Globulin [Mass ratio] 1.2 {ratio} [facility] Albumin/Globulin [Mass ratio] Serum or plasma albumin/globulin mass ratio [facility] Serum or plasma anion gap de terminationon 01-11-2024 Anion gap [Moles/Vol] 12.8 [facility] Anion gap [Moles/Vol] Serum or plasma an ion gap determination [facility] Serum or plasma total choles terol/high density lipoprotein (HDL) cholesterol mass jessica 01-11-2024 Cholesterol.total/Cho lesterol in HDL [Mass ratio] 3.4 {ratio} [facility] Comment on above: 3.3 - 4.4 LOW RISK4. 4 - 7.1 AVERAGE RISK7.1 - 11.0 MODERATE RISK>11.0 HIGH RISK Cholesterol.total/Cho lesterol in HDL [Mass ratio] Serum or plasma total cholesterol/high density lipoprotein (HDL) cholesterol mass rat [facility] Comment on above: 3.3 - 4.4 LOW RISK4. 4 - 7.1 AVERAGE RISK7.1 - 11.0 MODERATE RISK>11.0 HIGH RISK Creatinine (Bld) [Mass/Vol]O rdered By: Mark Harris on 12-18-2023 Creatinine [Mass/Vol] Whole blood creati nine measurement 0.6-1.3 [facility] Comment on above: ER/ESD physician is notified/shown all ISTAT results.Critical values may be confirmed by laboratory testing ifdeemed necessary by ER attending doctor. ISTAT XRay CREon 12-18-2023 ISTAT GFR > 60.0 Normal [facility] Comment on above: Result Comment: PERF ORMED BY: [place] [address] PATHOLOGIST SPECIAL EDUCATION TEACHING ASSISTANT MIKE MCCLELLAN M.D. Performed By: #### I SCRE #### [address] MR lumbar spine wo/w conon 0 12-18-2023 MR lumbar spine wo/w con [facility] [address] [place] [address] MRI Report Signed Patient: Bruce Stanton MR#: [id number] : 1950 Acct:[id number] Age/Sex: 73 / M ADM Date: 12/18/23 Loc: MR Room: Type: [facility] Attending Dr: Mark Harris MD Copies to: Mark Harris MD Ordering Provider: aMrk Harris MD Date of Service: 12/18/23 MR/MR lumbar spine wo/w con: M47.26 MRI Lumbar Spine with and withoutcontrast TECHNIQUE: Multiplanar T1 and T2-weighted imaging of lumbar spine obtained without contrast.20 cc of ProHance HISTORY: RIGHT leg pain and RIGHT toe pain for multiple years. History of laminectomy COMPARISON: None The last fully segmented vertebral pair is operationally defined as L5/S1. POST SURGERY CHANGES: None BONE MARROW INFILTRATION: None BONE MARROW EDEMA: None BONY ALIGNMENT: Adequate bony alignment identified. SPINAL CANAL: Multilevel central canal stenoses LUMBAR FRACTURE: None BONY LESIONS: T11 vertebral body hemangioma. Additional smaller hemangiomas throughout the lumbar spine and sacrum. KIDNEYS: No hydronephrosis is identified. AORTA: No aortic aneurysm is seen. CONUS MEDULLARIS : The distal spinal cord is in adequate position without abnormality. Additional findings CONJOINED NERVE ROOT: None Lower thoracic level: Unremarkable L1-2 :Diffuse disc bulge. Mild central canal stenosis. Posterior element hypertrophy. Marked bilateral neural foraminal narrowing L2-3: Extensive spondylosis. Diffuse disc bulge. Moderate central canal stenosis. Posterior element hypertrophy. Moderate degenerative LEFT and mild RIGHT neural foraminal narrowing L3-4: Moderate spondylosis. Diffuse disc bulge. Moderate central canal stenosis. Posterior element hypertrophy. Moderate bilateral neural foraminal narrowing L4-5: Mild anterolisthesis. Diffuse disc bulge. Mild central canal stenosis. Posterior element hypertrophy. Moderate bilateral neural foraminal narrowing L5-S1: Extensive spondylosis. Mild anterolisthesis. Diffuse disc bulge. Patent central canal. Posterior element hypertrophy. Facet diastases. Moderate RIGHT foraminal narrowing. Mild LEFT neural foraminal narrowing MR/MR lumbar spine wo/w con IMPRESSION: Multilevel discovertebral degenerative changes. Comment mild to moderate central canal stenoses as above. Pre-MRI plain film assessment: None Impression dictated by: Ry Ashton M.D.12/18/2023 9:42 PM Dictation Location: [place] [address] Transcribed By: [facility] 12/18/232141 Dictated By: Ry Ashton DO 12/18/232137 Signed By: 12/18/232141 Normal [facility] No Panel InformationOrdered By: Mark Harris on 12-18-2023 Bedside Estimated GFR (eGFR) > 60.0 [facility] Whole blood creatinine measu rementOrdered By: Mark Harris on 12-18-2023 Creatinine [Mass/Vol] 1.0 mg/dL Normal 0.6-1.3 [facility] Comment on above: ER/ESD physician is notified/shown all ISTAT results.Critical values may be confirmed by laboratory testing ifdeemed necessary by ER attending doctor. Result Comment: ER/E SD physician is notified/shown all ISTAT results. Critical values may be confirmed by laboratory testing if deemed necessary by ER attending doctor. Performed By: #### I SCRE #### [facility] [address] [place] [address] [place] XR knee RT 4V*on 11-10-2022 XR knee RT 4V* [facility] [employer] Other XR knee RT 4V* [facility] [employer] Other XR knee RT 4V* [address] [facility] [employer] Other XR knee RT 4V* [place] [address] No rt [employer] Other XR knee RT 4V* XRay Report [employer] Other XR knee RT 4V* Signed [employer] Other XR knee RT 4V* Patient: Bruce Stanton MR#: [id number] [employer] Other XR knee RT 4V* [id number] [employer] Other XR knee RT 4V* : 1950 Acct:[id number] [employer] Other XR knee RT 4V* Age/Sex: 72 / M ADM Date: 11/10/22 [employer] Other XR knee RT 4V* Loc: SOXD Room: Type : [facility] [employer] Other XR knee RT 4V* Attending Dr: Jesus Aiken II, MD [employer] Other XR knee RT 4V* Copies to: Jesus Aiken MD [employer] Other XR knee RT 4V* Ordering Provider: Jesus Aiken MD [employer] Other XR knee RT 4V* Date of Service: 11/10/22 [employer] Other XR knee RT 4V* XR/XR knee RT 4V*: Primary osteoarthritis of right knee [employer] Other XR knee RT 4V* RIGHT KNEE - 4 views [employer] Other XR knee RT 4V* CLINICAL HISTORY: Anterior/medial knee pain for 5 years. [employer] Other XR knee RT 4V* COMPARISON: Right kn ee 02/28/2017 [employer] Other XR knee RT 4V* FINDINGS: [employer] Other XR knee RT 4V* Moderate degenerativ e changes with medial weightbearing joint space narrowing. Chondrocalcinosis [employer] Other XR knee RT 4V* involving the latera l meniscus. No acute bony process. Bipartite patella. [employer] Other XR knee RT 4V* XR/XR knee RT 4V* [employer] Other XR knee RT 4V* IMPRESSION: [employer] Other XR knee RT 4V* MODERATE DEGENERATIV E CHANGES WITHOUT ACUTE BONY PROCESS. [employer] Other XR knee RT 4V* Impression dictated by: Tavares Cuellar Jr., D.OPhyllis11/10/2022 1:03 PM [employer] Other XR knee RT 4V* Dictation Location: [place] [address] [employer] Other XR knee RT 4V* Transcribed By: KARY 11/10/22 1303 [employer] Other XR knee RT 4V* Dictated By: Tavares Cuellar Jr, DO 11/10/22 1302 [employer] Other XR knee RT 4V* Signed By: [employer] Other XR knee RT 4V* 11/10/22 1303 [employer] Other XR pelvis 1-2Von 11-10-2022 XR pelvis 1-2V XR/XR pelvis 1-2V: Primary osteoarthritis of right knee [employer] Other XR pelvis 1-2V AP PELVIS: [employer] Other XR pelvis 1-2V CLINICAL HISTORY: Anterior/medial pain for 5 years [employer] Other XR pelvis 1-2V COMPARISON: None [employer] Other XR pelvis 1-2V Mild degenerative changes of the hips without acute bony process. [employer] Other XR pelvis 1-2V XR/XR pelvis 1-2V [employer] Other XR pelvis 1-2V Impression dictated by: Tavares Cuelalr Jr., D.O.11/10/2022 1:04 PM [employer] Other XR pelvis 1-2V Transcribed By: PWS 11/10/22 [facility] [employer] Other XR pelvis 1-2V Dictated By: Tavares Cuellar Jr DO 11/10/22 [facility] [employer] Other XR pelvis 1-2V 11/10/22 [facility] [employer] Other COVID-19 Positive/NegativeOr dered By: Mark Mendoza on 01-31-2022 SARS-CoV-2 (COVID-19) N gene HIEU+probe Ql (Resp) Negative Negative [facility] Comment on above: Testing for SARS-CoV -2 by RT-PCRThis test was developed and its performance characteristics determined by [employer] ([facility]) and validated at the [facility]. This test has not been FDA cleared or approved. This test has been authorized by FDA under an Emergency Use Authorization (EUA). This test has been validated in accordance with the FDA's Guidance Document (Policy for Diagnostics Testing in Laboratories Certified to Perform High Complexity Testing under CLIA prior to Emergency Use Authorization for Coronavirus Disease-2019 during the Public Health Emergency) issued on July 11, 2019. This test is only authorized for the duration of time the declaration that circumstances exist justifying the authorization of the emergency use of in vitro diagnostic tests for detection of SARS-CoV-2 virus and/or diagnosis of COVID-19 infection under section 564(b)(1) of the Act, 21 U.S.C. 360bbb-3(b)(1), unless the authorization is terminated or revoked sooner. MRI SHOULDER LT WO CONon MRI SHOULDER LT WO CON EXAMINATION: MRI SHOULDER LT WO CON HISTORY: Pain of left shoulder joint COMPARISON: No relevant comparison available. TECHNIQUE: A variety of imaging planes and parameters were utilized for visualization of suspected pathology. Imaging was performed without contrast. FINDINGS: ROTATOR CUFF REGION CUFF TENDONS: Moderately increased signal intensity in the supraspinatus and subscapularis tendons indicates tendon degeneration and/or tendinitis. 7 mm insertional tear distal anterior supraspinatus. CUFF MUSCLES: Mild to moderate supraspinatus atrophy DELTOID: Normal. No significant atrophy or tear. LONG BICEPS TENDON: Increased signal intensity in the biceps tendon indicates tendon degeneration and/or tendinitis. No cam tear is seen. LABRUM/BICEPS ANCHOR SUPERIOR: Normal. No visible labral tear or biceps anchor pathology. ANTERIOR/INFERIOR: Normal. No visible tear or attrition. POSTERIOR: Normal. No posterior labrum abnormality. CAPSULE Normal. No visible capsular laxity or thickening. AC JOINT REGION AC JOINT: Moderate osteoarthropathy with mild narrowing of the underlying coracoacromial arch. AC LIGAMENTS: Normal acromioclavicular ligament. CC LIGAMENTS: Normal coracoclavicular ligaments. ACROMION: Normal horizontal (Type I) configuration. SUBACROMIAL BURSA: Mild effusion. HYALINE CARTILAGE: Normal. No visible cartilage narrowing or focal defect. OTHER BONES: Normal proximal humerus, glenoid, and coracoid. OTHER OBSERVATIONS: Negative. No other significant findings or glenohumeral effusion. IMPRESSION: Moderate rotator cuff tendinitis with 7 mm insertional tear distal anterior supraspinatus tendon Mild to moderate supraspinatus muscle atrophy Electronically authenticated by: INGRID WYMAN Date: 2022-01-20 09:40 Normal [facility] CBC AUTO DIFFon 01-06-2022 BASO # 0.1 103/ul Normal 0.0-0.1 [facility] Comment on above: Performed By: #### C BC #### [facility] [address] [place] [address] Dr. Robert Feliciano Basophils/100 WBC (Bld) 0.7 % Normal 0.2-2.0 [facility] Comment on above: Performed By: #### C BC #### [facility] [address] [place] [address] Dr. Robert Feliciano EO # 0.1 103/ul Normal 0.0-0.7 [facility] Comment on above: Performed By: #### C BC #### [facility] [address] [place] [address] Dr. Robert Feliciano Eosinophils/100 WBC (Bld) 1.7 % Normal 0.9-7.0 [facility] Comment on above: Performed By: #### C BC #### [facility] [address] [place] [address] Dr. Robert Feliciano Erythrocyte distribution width (RBC) [Ratio] 12.2 % Normal 11.0-15.0 [facility] Comment on above: Performed By: #### C BC #### [facility] [address] [place] [address] Dr. Robert Feliciano Hematocrit (Bld) [Volume fraction] 46.8 % Normal 42.0-54.0 [facility] Comment on above: Performed By: #### C BC #### [facility] [address] [place] [address] Dr. Robert Feliciano Hemoglobin (Bld) [Mass/Vol] 16.4 g/dL Normal 14.0-18.0 [facility] Comment on above: Performed By: #### C BC #### [facility] [address] [place] [address] Dr. Robert Feliciano IG # 0.02 10e3/ul Normal 0.00-0.03 [facility] Comment on above: Performed By: #### C BC #### [facility] [address] [place] [address] Dr. Robert Feliciano IG % 0.3 % Normal 0.0-0.5 [facility] Comment on above: Performed By: #### C BC #### [facility] [address] [place] [address] Dr. Robert Feliciano LYMPH # 1.9 103/ul Normal 1.2-3.8 [facility] Comment on above: Performed By: #### C BC #### [facility] [address] [place] [address] Dr. Robert Feliciano Lymphocytes/100 WBC (Bld) 24.7 % Normal 20.5-60.0 [facility] Comment on above: Performed By: #### C BC #### [facility] [address] [place] [address] Dr. Robert Feliciano MANUAL DIFF REQ NO Normal [facility] Comment on above: Performed By: #### C BC #### [facility] [address] [place] [address] Dr. Robert Feliciano MCH (RBC) [Entitic mass] 31.6 pg Normal 25.9-34.0 [facility] Comment on above: Performed By: #### C BC #### [facility] [address] [place] [address] Dr. Robert Feliciano MCHC (RBC) [Mass/Vol] 35.0 g/dL Normal 29.9-35.2 [facility] Comment on above: Performed By: #### C BC #### [facility] [address] [place] [address] Dr. Robert Feliciano MCV (RBC) [Entitic vol] 90.2 fL Normal 80.0-94.0 [facility] Comment on above: Performed By: #### C BC #### [facility] [address] [place] [address] Dr. Robert Feliciano MONO # 0.6 103/ul Normal 0.3-0.8 [facility] Comment on above: Performed By: #### C BC #### [facility] [address] [place] [id number] Robert Feliciano Monocytes/100 WBC (Bld) 7.4 % Normal 1.7-12.0 [facility] Comment on above: Performed By: #### C BC #### [facility] [address] [place] [address] [address] Robert Feliciano NEUT # 5.0 103/ul Normal 1.4-6.5 [facility] Comment on above: Performed By: #### C BC #### [facility] [address] [place] [address] [address] Robert Feliciano Neutrophils/100 WBC (Bld) 65.2 % Normal 43.0-75.0 [facility] Comment on above: Performed By: #### C BC #### [facility] [address] [place] [address] Dr. Robert Feliciano Platelet mean volume (Bld) [Entitic vol] 9.2 fL Critically low 9.5-13.5 [facility] Comment on above: Performed By: #### C BC #### [facility] [address] [place] [address] [address] Robert Feliciano PLT 217 103/ul Normal 150-450 [facility] Comment on above: Performed By: #### C BC #### [facility] [address] [place] [address] Dr. Robert Feliciano RBC 5.19 106/ul Normal 4.70-6.10 [facility] Comment on above: Performed By: #### C BC #### [facility] [address] [place] [address] Dr. Robert Feliciano WBC 7.6 103/ul Normal 4.0-11.0 [facility] Comment on above: Performed By: #### C BC #### [facility] [address] [place], [place] [id number] Dr. Robert Feliciano LIPID PROFILEon 01-06-2022 CHOL-HDL RATIO NORM SEE BELOW Normal [facility] Comment on above: Result Comment: 3.3 - 4.4 LOW RISK 4.4 - 7.1 AVERAGE RISK 7.1 - 11.0 MODERATE RISK >11.0 HIGH RISK Performed By: #### L IPID, CMP #### [facility] [address] [place] [address] [address] Robert Feliciano Cholesterol [Mass/Vol] 177 mg/dL Normal <=200 [facility] Comment on above: Performed By: #### L IPID, CMP #### [facility] [address] [place] [address] [address] Robert Feliciano Cholesterol in HDL [Mass/Vol] 44 mg/dL Normal 40-60 [facility] Comment on above: Performed By: #### L IPID, CMP #### [facility] [address] [place] [address] [address] Robert Feliciano Cholesterol in LDL [Mass/Vol] 117.0 mg/dL Normal [facility] Comment on above: Performed By: #### L IPID, CMP #### [facility] [address] [place] [address] Dr. Robert Feliciano Cholesterol.total/Cho lesterol in HDL [Mass ratio] 4.0 {ratio} Normal [facility] Comment on above: Performed By: #### L IPID, CMP #### [facility] [address] [place] [address] [address] Robert Feliciano HDL NORMAL > or = 60 mg/dl - LO W CARDIOVASCULAR RISK <40 mg/dl - HIGH CARDIOVASCULAR RISK Normal [facility] Comment on above: Performed By: #### L IPID, CMP #### [facility] [address] [place] [address] [address] Robert Feliciano LDL CALC NORMAL SEE BELOW Normal [facility] Comment on above: Result Comment: <100 mg/dl OPTIMAL 100 - 129 mg/dl NEAR OR ABOVE OPTIMAL 130 - 159 mg/dl BORDERLINE HIGH 160 - 189 mg/dl HIGH >190 mg/dl VERY HIGH Performed By: #### L IPID, CMP #### [facility] [address] [place] [address] Dr. Robert Feliciano Triglyceride [Mass/Vol] 80 mg/dL Normal <=150 [facility] Comment on above: Performed By: #### L IPID, CMP #### [facility] [address] [place] [address] [address] Robert Feliciano VLDL CALC 16.0 mg/dL Normal [facility] Comment on above: Performed By: #### L IPID, CMP #### [facility] [address] [place] [address] Dr. Robert Feliciano PROF 14(COMP METB)on 022 Albumin [Mass/Vol] 4.1 g/dL Normal 3.4-5.0 [facility] Comment on above: Performed By: #### L IPID, CMP #### [facility] [address] [place] [address] Dr. Robert Feliciano Albumin/Globulin [Mass ratio] 1.3 {ratio} Normal [facility] Comment on above: Performed By: #### L IPID, CMP #### [facility] [address] [place] [address] Dr. Robert Feliciano ALP [Catalytic activity/Vol] 59 U/L Normal 46-116 [facility] Comment on above: Performed By: #### L IPID, CMP #### [facility] [address] [place] [address] Dr. Robert Feliciano ALT [Catalytic activity/Vol] 44 U/L Normal 16-63 [facility] Comment on above: Performed By: #### L IPID, CMP #### [facility] [address] [place] [address] Dr. Robert Feliciano Anion gap [Moles/Vol] 10.3 mmol/L Normal [facility] Comment on above: Performed By: #### L IPID, CMP #### [facility] [address] [place] [address] Dr. Robert Feliciano AST [Catalytic activity/Vol] 22 U/L Normal 15-37 [facility] Comment on above: Performed By: #### L IPID, CMP #### [facility] [address] [place] [address] Dr. Robert Feliciano Bilirubin [Mass/Vol] 0.6 mg/dL Normal 0.2-1.0 [facility] Comment on above: Performed By: #### L IPID, CMP #### [facility] [address] [place] [address] [address] Robert Feliciano Calcium [Mass/Vol] 8.9 mg/dL Normal 8.5-10.1 [facility] Comment on above: Performed By: #### L IPID, CMP #### [facility] [address] [place] [address] [address] Robert Feliciano Chloride [Moles/Vol] 105 mmol/L Normal 98-107 [facility] Comment on above: Performed By: #### L IPID, CMP #### [facility] [address] [place] [address] [address] Robert Feliciano CO2 [Moles/Vol] 29.0 mmol/L Normal 21.0-32.0 [facility] Comment on above: Performed By: #### L IPID, CMP #### [facility] [address] [place] [address] Dr. Robert Feliciano Creatinine [Mass/Vol] 1.05 mg/dL Normal 0.70-1.30 [facility] Comment on above: Performed By: #### L IPID, CMP #### [facility] [address] [place] [address] Dr. Robert Feliciano EGFR-AF OMANI >60 Normal >=60 [facility] Comment on above: Performed By: #### L IPID, CMP #### [facility] [address] [place] [address] Dr. Robert Feliciano EGFR-NON AF OMANI >60 Normal >=60 [facility] Comment on above: Performed By: #### L IPID, CMP #### [facility] [address] [place] [address] Dr. Robert Feliciano Globulin (S) [Mass/Vol] 3.2 g/dL Normal [facility] Comment on above: Performed By: #### L IPID, CMP #### [facility] [address] [place] [address] Dr. Robert Feliciano Glucose [Mass/Vol] 112 mg/dL Critically high 74-106 T [facility] Comment on above: Performed By: #### L IPID, CMP #### [facility] [address] [place] [address] [address] Robert Feliciano Potassium [Moles/Vol] 4.3 mmol/L Normal 3.5-5.1 [facility] Comment on above: Performed By: #### L IPID, CMP #### [facility] [address] [place] [address] [address] Robert Feliciano Protein [Mass/Vol] 7.3 g/dL Normal 6.4-8.2 [facility] Comment on above: Performed By: #### L IPID, CMP #### [facility] [address] [place] [address] [address] Robert Feliciano Sodium [Moles/Vol] 140 mmol/L Normal 136-145 [facility] Comment on above: Performed By: #### L IPID, CMP #### [facility] [address] [place] [address] Dr. Robert Feliciano Urea nitrogen [Mass/Vol] 18.0 mg/dL Normal 7.0-18.0 [facility] Comment on above: Performed By: #### L IPID, CMP #### [facility] [address] [place] [address] [address] Robert Feliciano Urea nitrogen/Creatinine [Mass ratio] 17.1 mg/mg Normal [facility] Comment on above: Performed By: #### L IPID, CMP #### [facility] [address] [place] [address] Dr. Robert Feliciano Vital Signs Date Time Vital Sign Value Performing Clinician Facility 10-29-2024 09:45-0400 Diastolic blood pressure 88 mm[Hg] Ze Ball DO Work Phone: [facility] 10-29-2024 09:45-0400 Heart rate 69 /min Ze Ball DO Work Phone: [facility] 10-29-2024 09:45-0400 Respiratory rate 16 /min Ze Ball DO Work Phone: [facility] 10-29-2024 09:45-0400 SaO2% (BldA) [Mass fraction] 96 % Ze Ball DO Work Phone: [facility] 10-29-2024 09:45-0400 Systolic blood pressure 147 mm[Hg] Ze Ball DO Work Phone: [facility] 10-29-2024 09:01-0400 Inhaled oxygen flow rate 3 L/min Ze Ball DO Work Phone: [facility] 10-29-2024 07:55-0400 Body height 182.88 cm Ze Ball DO Work Phone: [facility] 10-29-2024 07:55-0400 Body weight 113.39 kg Ze Ball DO Work Phone: [facility] 08-08-2024 11:43-0400 Body height 182.88 cm [facility] 08-08-2024 11:43-0400 Body mass index (BMI) [Ratio] 34.7 kg/m2 [facility] 08-08-2024 11:43-0400 Body weight 116.11 kg [facility] 08-08-2024 11:43-0400 Diastolic blood pressure 84 mm[Hg] [facility] 08-08-2024 11:43-0400 Heart rate 66 /min [facility] 08-08-2024 11:43-0400 Respiratory rate 12 /min [facility] 08-08-2024 11:43-0400 Systolic blood pressure 134 mm[Hg] [facility] 02-20-2024 10:40-0500 Diastolic blood pressure 80 mm[Hg] Ze Ball DO Work Phone: [facility] 02-20-2024 10:40-0500 Heart rate 76 /min Ze Ball DO Work Phone: [facility] 02-20-2024 10:40-0500 Respiratory rate 16 /min Ze Ball DO Work Phone: [facility] 02-20-2024 10:40-0500 SaO2% (BldA) [Mass fraction] 95 % Ze Ball DO Work Phone: [facility] 02-20-2024 10:40-0500 Systolic blood pressure 133 mm[Hg] Ze Ball DO Work Phone: [facility] 02-20-2024 10:05-0500 Inhaled oxygen flow rate 3 L/min Ze Ball DO Work Phone: [facility] 02-20-2024 09:25-0500 Body height 182.88 cm Ze Ball DO Work Phone: [facility] 02-20-2024 09:25-0500 Body weight 111.13 kg Ze Ball DO Work Phone: [facility] 01-23-2024 09:10-0400 Diastolic blood pressure 67 mm[Hg] DO Ze Ball Work Phone: [facility] 01-23-2024 09:10-0400 Heart rate 72 /min DO Ze Ball Work Phone: [facility] 01-23-2024 09:10-0400 Respiratory rate 16 /min DO Ze Ball Work Phone: [facility] 01-23-2024 09:10-0400 SaO2% (BldA) [Mass fraction] 95 % DO Ze Ball Work Phone: [facility] 01-23-2024 09:10-0400 Systolic blood pressure 118 mm[Hg] DO Ze Ball Work Phone: [facility] 01-23-2024 08:34-0400 Inhaled oxygen flow rate 3 L/min DO Ze Ball Work Phone: [facility] 01-23-2024 07:51-0400 Body height 182.88 cm DO Ze Ball Work Phone: [facility] 01-23-2024 07:51-0400 Body weight 113.39 kg DO Ze Ball Work Phone: [facility] 01-11-2024 10:36-0400 Body height 180.34 cm DO Ze Ball Work Phone: [facility] 01-11-2024 10:36-0400 Body mass index (BMI) [Ratio] 35.2 kg/m2 DO Ze Ball Work Phone: [facility] 01-11-2024 10:36-0400 Body weight 114.41 kg DO Ze Ball Work Phone: [facility] 01-11-2024 10:36-0400 Diastolic blood pressure 81 mm[Hg] DO Ze Ball Work Phone: [facility] 01-11-2024 10:36-0400 Heart rate 61 /min DO Ze Ball Work Phone: [facility] 01-11-2024 10:36-0400 Respiratory rate 12 /min DO Ze Ball Work Phone: [facility] 01-11-2024 10:36-0400 Systolic blood pressure 148 mm[Hg] DO Ze Ball Work Phone: [facility] 07-10-2023 10:40-0400 Body height 180.34 cm DO Ze Ball Work Phone: [facility] 07-10-2023 10:40-0400 Body mass index (BMI) [Ratio] 35.5 kg/m2 DO Ze Ball Work Phone: [facility] 07-10-2023 10:40-0400 Body weight 115.66 kg DO Ze Ball Work Phone: [facility] 07-10-2023 10:40-0400 Diastolic blood pressure 88 mm[Hg] DO Ze Ball Work Phone: [facility] 07-10-2023 10:40-0400 Heart rate 77 /min DO Ze Ball Work Phone: [facility] 07-10-2023 10:40-0400 Respiratory rate 16 /min DO Ze Ball Work Phone: [facility] 07-10-2023 10:40-0400 Systolic blood pressure 135 mm[Hg] DO Ze Ball Work Phone: [facility] 04-18-2023 10:48-0500 Diastolic blood pressure 81 mm[Hg] DO Ze Ball Work Phone: [facility] 04-18-2023 10:48-0500 Heart rate 72 /min DO Ze Ball Work Phone: [facility] 04-18-2023 10:48-0500 Respiratory rate 18 /min DO Ze Ball Work Phone: [facility] 04-18-2023 10:48-0500 SaO2% (BldA) [Mass fraction] 96 % DO Ze Ball Work Phone: [facility] 04-18-2023 10:48-0500 Systolic blood pressure 137 mm[Hg] DO Ze Ball Work Phone: [facility] 04-18-2023 10:09-0500 Inhaled oxygen flow rate 3 L/min DO Ze Ball Work Phone: [facility] 04-18-2023 09:15-0500 Body height 175.26 cm DO Ze Ball Work Phone: [facility] 04-18-2023 09:15-0500 Body weight 114.3 kg DO Ze Ball Work Phone: [facility] 03-21-2023 09:28-0500 Diastolic blood pressure 85 mm[Hg] DO Ze Ball Work Phone: [facility] 03-21-2023 09:28-0500 Heart rate 65 /min DO Ze Ball Work Phone: [facility] 03-21-2023 09:28-0500 Respiratory rate 16 /min DO Ze Ball Work Phone: [facility] 03-21-2023 09:28-0500 SaO2% (BldA) [Mass fraction] 94 % DO Ze Ball Work Phone: [facility] 03-21-2023 09:28-0500 Systolic blood pressure 142 mm[Hg] DO Ze Ball Work Phone: [facility] 03-21-2023 08:48-0500 Inhaled oxygen flow rate 3 L/min DO Ze Ball Work Phone: [facility] 03-21-2023 08:01-0500 Body height 181.61 cm DO Ze Ball Work Phone: [facility] 03-21-2023 08:01-0500 Body weight 114.3 kg DO Ze Ball Work Phone: [facility] 03-07-2023 15:00-0500 Body height 177.8 cm Mark Harris Other [employer] Other 02-28-2023 10:36-0500 Diastolic blood pressure 79 mm[Hg] DO Ze Ball Work Phone: [facility] 02-28-2023 10:36-0500 Heart rate 75 /min DO Ze Ball Work Phone: [facility] 02-28-2023 10:36-0500 Respiratory rate 18 /min DO Ze Ball Work Phone: [facility] 02-28-2023 10:36-0500 SaO2% (BldA) [Mass fraction] 96 % DO Ze Ball Work Phone: [facility] 02-28-2023 10:36-0500 Systolic blood pressure 140 mm[Hg] DO Ze Ball Work Phone: [facility] 02-28-2023 10:00-0500 Inhaled oxygen flow rate 3 L/min DO Ze Ball Work Phone: [facility] 02-28-2023 09:19-0500 Body height 180.34 cm DO Ze Ball Work Phone: [facility] 02-28-2023 09:19-0500 Body weight 115.66 kg DO Ze Ball Work Phone: [facility] 01-09-2023 10:30-0400 Body height 177.8 cm Ze Ball Other [employer] Other 01-09-2023 10:30-0400 Body mass index (BMI) [Ratio] 37.33 kg/m2 Ze Ball Other [employer] Other 01-09-2023 10:30-0400 Body weight 118.03 kg Ze Ball Other [employer] Other 01-09-2023 10:30-0400 Diastolic blood pressure 83 mm[Hg] Ze Ball Other [employer] Other 01-09-2023 10:30-0400 Respiratory rate 12 /min Ze Ball Other [employer] Other 01-09-2023 10:30-0400 Systolic blood pressure 139 mm[Hg] Ze Ball Other [employer] Other 11-10-2022 11:30-0400 Body height 177.8 cm Jesus Weston II Other [employer] Other 11-10-2022 11:30-0400 Body mass index (BMI) [Ratio] 35.15 kg/m2 Jesus Weston II Other [employer] Other 11-10-2022 11:30-0400 Body weight 111.13 kg Jesus Weston II Other [employer] Other 03-14-2022 13:15-0500 Body height Mark Olexa Other [employer] Other 03-14-2022 13:15-0500 Body mass index (BMI) [Ratio] 37.73 kg/m2 Mark Olexa Other [employer] Other 03-14-2022 13:15-0500 Body weight 119.3 kg Mark Olexa Other [employer] Other 02-02-2022 15:10-0400 Diastolic blood pressure 86 mm[Hg] DO Ze Ball Work Phone: [facility] 02-02-2022 15:10-0400 Heart rate 80 /min DO Ze Ball Work Phone: [facility] 02-02-2022 15:10-0400 Respiratory rate 16 /min DO Ze Ball Work Phone: [facility] 02-02-2022 15:10-0400 SaO2% (BldA) [Mass fraction] 95 % DO Ze Ball Work Phone: [facility] 02-02-2022 15:10-0400 Systolic blood pressure 138 mm[Hg] DO Ze Ball Work Phone: [facility] 02-02-2022 13:34-0400 Body temperature 98 [degF] DO Ze Ball Work Phone: [facility] 02-02-2022 13:34-0400 Inhaled oxygen flow rate 4 L/min DO Ze Ball Work Phone: [facility] 02-02-2022 10:13-0400 Body mass index (BMI) [Ratio] 35.9 kg/m2 DO Ze Ball Work Phone: [facility] 02-02-2022 09:58-0400 Body height 182.88 cm DO Ze Ball Work Phone: [facility] 02-02-2022 09:58-0400 Body weight 120 kg DO Ze Ball Work Phone: [facility] 01-25-2022 11:30-0400 Body height Mark Olexa Other [employer] Other 01-25-2022 11:30-0400 Body mass index (BMI) [Ratio] 38.16 kg/m2 Mark Olexa Other [employer] Other 01-25-2022 11:30-0400 Body weight 120.66 kg Mark Mendoza Other [facility] [employer] Other Encounters Encounter Date Encounter Type Care Provider Facility Start: 10-29-2024 End: 10-29-2024 ambulatory Mark Harris Facility:[facility] Start: 10-29-2024 Non-patient / Non-visit Mark Dumont MD -[facility] Work Phone: Start: 10-14-2024 End: 10-14-2024 ambulatory Ze Ball DO Work Phone: [facility] Work Phone: Start: 10-14-2024 End: 10-14-2024 Patient encounter procedure Mark Dumont MD -[facility] Work Phone: Start: 08-08-2024 End: 08-08-2024 ambulatory [facility] Work Phone: Start: 08-08-2024 End: 08-08-2024 Patient encounter procedure [facility] Work Phone: Start: 02-20-2024 Non-patient / Non-visit Benjam in Ball DO Work Phone: [facility] Work Phone: Start: 02-20-2024 End: 02-20-2024 Admission to same day surgery center Ze Ball DO Work Phone: [facility] Work Phone: Start: 02-20-2024 End: 02-20-2024 ambulatory Ze Ball DO Work Phone: [facility] Work Phone: Start: 02-07-2024 End: 02-07-2024 ambulatory DO Ze Ball Work Phone: [facility] Work Phone: Start: 02-07-2024 End: 02-07-2024 Patient encounter procedure DO Ze Ball Work Phone: [facility] Work Phone: Start: 01-23-2024 Non-patient / Non-visit DO Eduardo rojo Ball Work Phone: [facility] Work Phone: Start: 01-23-2024 End: 01-23-2024 Admission to same day surgery center DO Ze Ball Work Phone: [facility] Work Phone: Start: 01-23-2024 End: 01-23-2024 ambulatory DO Ze Ball Work Phone: [facility] Work Phone: Start: 01-11-2024 End: 01-11-2024 ambulatory DO Ze Ball Work Phone: [facility] Work Phone: Start: 01-11-2024 End: 01-11-2024 Patient encounter procedure DO Ze Ball Work Phone: [facility] Work Phone: Start: 01-10-2024 End: 01-10-2024 ambulatory DO Ze Ball Work Phone: [facility] Work Phone: Start: 01-10-2024 End: 01-10-2024 Patient encounter procedure DO Ze Ball Work Phone: [facility] Work Phone: Start: 01-09-2024 Patient encounter procedure DO Ze Ball Work Phone: [facility] Start: 12-18-2023 End: 12-18-2023 Patient encounter procedure DO Ze Ball Work Phone: [facility] [address] Work Phone: Start: 12-18-2023 End: 12-18-2023 ambulatory DO Ze Ball Work Phone: [facility] Work Phone: Start: 11-23-2023 End: 11-23-2023 ambulatory [facility] Work Phone: Start: 11-23-2023 End: 11-23-2023 Patient encounter procedure [facility] Work Phone: Start: 07-10-2023 End: 07-10-2023 ambulatory DO Ze Howard Work Phone: [facility] Work Phone: Start: 07-10-2023 End: 07-10-2023 Patient encounter procedure DO Ze Howard Work Phone: [facility] Work Phone: Start: 05-22-2023 End: 05-22-2023 ambulatory Jesus Aiken II Other [employer] Other Start: 05-22-2023 Telephone encounter Ze Howard [facility] Start: 05-16-2023 Office outpatient vi sit 15 minutes Jesus Aiken II [facility] Start: 05-16-2023 End: 05-16-2023 ambulatory DO Ze Howard Work Phone: [employer] Other Start: 05-16-2023 End: 05-16-2023 Patient encounter procedure DO Ze Howard Work Phone: [facility] Start: 05-04-2023 End: 05-04-2023 ambulatory Mark Harris Other [employer] Other Start: 05-04-2023 Office outpatient vi sit 15 minutes Mark Harris [facility] Start: 04-18-2023 (Procedure) Short Mark Harris [facility] Start: 04-18-2023 End: 04-18-2023 Admission to same day surgery center DO Ze Ball Work Phone: [facility] Work Phone: Start: 04-18-2023 End: 04-18-2023 ambulatory DO Ze Ball Work Phone: [facility] Work Phone: Start: 03-29-2023 End: 03-29-2023 ambulatory Mark Felter Other [employer] Other Start: 03-29-2023 Office outpatient vi sit 25 minutes Mark Felter [facility] Start: 03-29-2023 End: 03-29-2023 Patient encounter procedure DO Ze Ball Work Phone: [facility] Work Phone: Start: 03-21-2023 (Procedure) Short Mark Harris [facility] Start: 03-21-2023 End: 03-21-2023 Admission to same day surgery center DO Ze Ball Work Phone: [facility] Work Phone: Start: 03-21-2023 End: 03-21-2023 ambulatory DO Ze Lee Work Phone: [facility] Work Phone: Start: 03-07-2023 End: 03-07-2023 ambulatory Mark Felter Other [employer] Other Start: 03-07-2023 Office outpatient vi sit 25 minutes Mark Felter [facility] Start: 03-07-2023 End: 03-07-2023 Patient encounter procedure DO Ze Ball Work Phone: [facility] Work Phone: Start: 02-28-2023 (Procedure) Short Mark Harris [facility] Start: 02-28-2023 End: 02-28-2023 ambulatory Mark Felter Other [employer] Other Start: 02-28-2023 End: 02-28-2023 Admission to same day surgery center DO Ze Ball Work Phone: [facility] Work Phone: Start: 02-23-2023 End: 02-23-2023 Patient encounter procedure DO Ze Ball Work Phone: [facility] Work Phone: Start: 02-15-2023 End: 02-15-2023 ambulatory Jesus Weston II Other [employer] Other Start: 02-15-2023 Office outpatient vi sit 25 minutes Jesus Attila II [facility] Start: 01-10-2023 End: 01-10-2023 ambulatory Ze Howard Other [employer] Other Start: 01-10-2023 Telephone encounter Ze Howard [facility] Start: 01-09-2023 End: 01-09-2023 ambulatory Ze Howard Other [employer] Other Start: 01-09-2023 Patient encounter procedure Ze Howard [facility] Start: 12-14-2022 End: 12-14-2022 ambulatory Ze Howard Other [employer] Other Start: 12-14-2022 Telephone encounter Ze Howard [facility] Start: 11-14-2022 End: 11-14-2022 ambulatory Jesus Weston II Other [employer] Other Start: 11-14-2022 Telephone encounter Jesus Weston II [facility] Start: 11-10-2022 Office outpatient ne w 45 minutes Jesus Attila II [facility] Start: 11-10-2022 End: 11-10-2022 ambulatory DO Ze Ball Work Phone: [facility] Work Phone: Start: 11-10-2022 End: 11-10-2022 Patient encounter procedure DO Ze Howard Work Phone: [facility] Start: 08-04-2022 End: 08-04-2022 ambulatory Ze Howard Other [employer] Other Start: 08-04-2022 Telephone encounter Ze Howard [facility] Start: 08-01-2022 End: 08-01-2022 ambulatory Mark Olexa Other [employer] Other Start: 08-01-2022 Office outpatient vi sit 15 minutes Mark Olexa [facility] Start: 06-06-2022 End: 06-06-2022 Discharged Recurring DO Ze Howard Work Phone: [facility] Start: 06-06-2022 End: 06-06-2022 ambulatory DO Ze Howard Work Phone: [employer] Other Start: 06-06-2022 Office outpatient vi sit 15 minutes Mark Olexa [facility] Start: 05-16-2022 End: 05-16-2022 ambulatory Mary Jo Kim Other [employer] Other Start: 05-16-2022 Office outpatient vi sit 15 minutes Mary Jo Kim [facility] Start: 03-14-2022 End: 03-14-2022 ambulatory Mark Olexa Other [employer] Other Start: 03-14-2022 Postop follow up vis it related to original px Mark Olexa [facility] Start: 02-14-2022 End: 02-14-2022 ambulatory Mark Olexa Other [employer] Other Start: 02-14-2022 Postop follow up vis it related to original px Mark Olexa [facility] Start: 02-02-2022 End: 02-02-2022 Admission to same day surgery center DO Ze Ball Work Phone: [facility] [address] Start: 02-02-2022 End: 02-02-2022 ambulatory DO Ze Ball Work Phone: [facility] Work Phone: Start: 02-01-2022 End: 02-01-2022 ambulatory Mark Mendoza Other [employer] Other Start: 02-01-2022 Telephone encounter Mark Mendoza [facility] Start: 01-31-2022 End: 01-31-2022 ambulatory DO Ze Ball Work Phone: [facility] Work Phone: Start: 01-31-2022 End: 01-31-2022 Patient encounter procedure DO Ze Ball Work Phone: [facility]-Pre-Surgical Testing Start: 01-26-2022 End: 01-26-2022 ambulatory DO Ze Ball Work Phone: [facility] Work Phone: Start: 01-26-2022 End: 01-26-2022 Patient encounter procedure DO Ze Ball Work Phone: [facility]Pre[facility]Surgical Testing Start: 01-25-2022 End: 01-25-2022 Patient encounter procedure DO Ze Ball Work Phone: [facility]-Covid Vaccine Off Site Start: 01-25-2022 ([facility] C Vac) [facility] Co vid Vaccine Emilee Schwab [facility] Start: 01-25-2022 End: 01-25-2022 ambulatory DO Ze Ball Work Phone: [place] Other Start: 01-25-2022 Office outpatient ne w 45 minutes Mark Mendoza [facility] Start: 01-20-2022 End: 01-21-[address] ZE HOWARD Facility:[facility] Start: 01-06-2022 Adult health examination Jesus Aiken II Other [place] [place] [facility] Other Start: 01-06-2022 End: 01-07-[address] ZE HOWARD Facility:[facility] Start: 12-24-2021 End: 01-11-[address] MICHELLE CARRASQUILLO Facility:[facility] Start: 12-16-2021 End: 12-17-[address] MICHELLE CARRASQUILLO Facility:[facility] Procedures Date Procedure Procedure Detail Performing Clinician Start: 10-14-2024 X-ray of right knee, two views Ze Howard DO Work Phone: Start: 02-20-2024 Radiofrequency destr uction of peripheral nerve Ze Howard DO Work Phone: Start: 01-23-2024 Injection of spinal epidural space DO [facility] Work Phone: Start: 12-18-2023 MRI of lumbar spine with contrast DO Ze [employer] Work Phone: Start: 05-16-2023 X-ray of right knee DO Ze [employer] Work Phone: Start: 04-18-2023 Local anesthetic ner ve block in lower limb DO Ze [employer] Work Phone: Start: 03-21-2023 Local anesthetic ner ve block in lower limb DO [facility] Work Phone: Start: 02-28-2023 Local anesthetic ner ve block in lower limb DO [facility] Work Phone: Start: 11-10-2022 X-ray of right knee DO [facility] Work Phone: Start: 02-02-2022 Procedure on shoulder joint DO [facility] Work Phone: Start: 01-06-[address] KVNG HOWARD Comment on above: Performed By: #### [facility] #### [facility] [address] [place] [address] Dr. Robert Feliciano Start: 09-18-2017 Screening for malign ant neoplasm of prostate Jesus Aiken II Other Start: 06-12-2016 Laboratory test resu lt abnormal Jesus Aiken II Other Depression screening Jesus Aiken II Other General examination of patient Jesus Aiken II Other Screening for malign ant neoplasm of prostate Jesus Aiken II Other Plan of Treatment Date Care Activity Detail Author Start: 10-29-2024 [facility] Start: 10-14-2024 X-ray of right knee, two views XR knee RT 2V [facility] Start: 10-14-2024 XR Knee - right 2 Views [facility] Start: 02-20-2024 [facility] Start: 01-23-2024 [facility] Start: 04-18-2023 [facility] Start: 03-21-2023 [facility] Start: 02-28-2023 [facility] Start: 02-02-2022 [facility] Start: 02-02-2022 [facility] Comprehensive metabo lic 2000 panel - Serum or Plasma [facility] MR Lumbar spine WO a nd W contrast IV [facility] Patient Education [facility] Work Phone: Patient referral [facility] Work Phone: [facility] Immunizations Immunization Date Immunization Notes Care Provider Ángela metzger 01-11-2024 influenza, high dose seasonal, preservative-free DO [facility] Work Phone: [facility] 01-09-2023 influenza virus vaccine, unspecified formulation DO [facility] Work Phone: [facility] 01-09-2023 influenza, high dose seasonal, preservative-free [facility] Other [employer] Other 01-25-2022 COVID-19 Moderna (BIvalent) Mark Mendoza Other [facility] 01-06-2022 influenza virus vaccine, split virus (incl. purified surface antigen) Jesus Aiken II Other [employer] [facility] [employer] Other 01-06-2022 influenza virus vaccine, unspecified formulation DO [facility] Work Phone: [facility] 02-04-2021 COVID-19 mRNA-1273 (Moderna) DO [facility] Work Phone: [facility] 01-04-2021 pneumococcal polysaccharide vaccine, 23 valent Jesus Aiken II Other [facility] 07-10-2020 COVID-19 mRNA-1273 (Moderna) DO [facility] Work Phone: [facility] 06-12-2020 COVID-19 mRNA-1279 (Moderna) DO [facility] Work Phone: [facility] 01-03-2020 influenza virus vaccine, split virus (incl. purified surface antigen) Jesus Aiken II Other [facility] [employer] Other 01-03-2020 influenza virus vaccine, unspecified formulation DO [facility] Work Phone: [facility] 01-22-2018 influenza virus vaccine, split virus (incl. purified surface antigen) Jesus Aiken II Other [facility] [employer] Other 01-22-2018 influenza virus vaccine, unspecified formulation DO [facility] Work Phone: [facility] 01-17-2018 influenza virus vaccine, split virus (incl. purified surface antigen) Jesus iAken II Other [facility] [employer] Other 01-17-2018 influenza virus vaccine, unspecified formulation DO [facility] Work Phone: [facility] 09-18-2017 pneumococcal conjuga te vaccine, 13 valent Jesus Aiken II Other [facility] 09-18-2017 pneumococcal Conjuga te, unspecified formulation; Translations: [Need for prophylactic vaccination against Streptococcus pneumoniae (pneumococcus)] Jesus Aiken II Other [employer] Other 01-30-2017 diphtheria, tetanus toxoids and acellular pertussis vaccine, unspecified formulation Jesus Aiken II Other [facility] Payers Date Payer Category Payer Self-pay [id number] 2023 Unknown [id number] 1957 Medicare [id number] 2.1 [id number] 1959 Unknown [id number] 1950 Unknown [id number] 2.16.84 [id number] 1950 Unknown [id number] 2.16.84 [id number] 1950 Unknown [id number] 2.16.84 [id number] 1950 Unknown [id number] 2.16.84 [id number] Unknown [id number] Unknown [id number] 2.16.8 [id number] Unknown [id number] 2.16.8 [id number] Unknown [id number] 2.16.8 [id number] Unknown [id number] 2.16.8 [id number] Unknown [id number] 2.16.8 [id number] Social History Date Type Detail Facility Unknown if ever smoked [employer] Other Sex Assigned At Sex Assigned At Bir th [place] [facility] Other Start: 1950 Sex Assigned At Male F [facility] Start: 01-26-2022 End: 10-29-2024 Tobacco smoking status NHIS Never smoked tobacco (finding) [facility] Start: 02-20-2024 End: 08-08-2024 Sex Male (finding) [facility] Medical Equipment Procedure Code Equipment Code Equipment Origin al Text Equipment Identifier Dates Arthroscopy, shoulder Tendon/ligament bone anchor, non-bioabsorbable [id number] FDA Start: 02-02-2022 Arthroscopy, shoulder Tendon/ligament bone anchor, bioabsorbable [id number] FDA Start: 02-02-2022 Goals Date Patient Goal Desired Activity /State Clinical Notes 12-16-2021 to 08-08-2024 Note Date & Type Note Facility 08-08-2024 Evaluation note Diagnosis Onset Date Resolution Contusion of left heel acute 2024 11:28am Hypercholesteremia acute August 11:28am Hypertension acute August 08 11:28am IFG (impaired fasting glucose) acute August 08, 2024 11:28am Lumbar spondylosis acute August 11:28am Obesity acute August 08, 2024 11:28am Primary osteoarthritis of right knee acute August 08, 2024 11:28am Screening for colon cancer noneactiv e August 08, 2024 11:28am Chronic pain acute October 14 9:38am Other spondylosis with radiculopathy, lumbar region acute October 14, 2024 9:38am Primary osteoarthritis of right knee acute October 14, 2024 9:38am [facility] Work Phone: [phone]) 146-625911-12-2024 [place] [address] Pain Management Procedure Note Signed Patient: Bruce Stanton MR#: [id number] : 1950 Acct:[id number] Age/Sex: 73 / M Adm Date: 4 Loc: Room: Type: [facility] Attending Dr: Mark Harris MD Copies to: DO Mark Doss MD~ Pain Procedure PROCEDURE PERFORMED BY: Mark Harris PROCEDURE DATE: 02/20/2024 PREPROCEDURE DIAGNOSIS: Right knee degeneration. POSTPROCEDURE DIAGNOSIS: Right knee degeneration. PROCEDURE: Right superior medial, superior lateral and inferior medial genicular nerve radiofrequency ablationunder fluoroscopic guidance. COMPLICATIONS: None. ANESTHESIA: Local and conscious sedation with Midazolam 2 mg and Fentanyl 50 mcg Sedation start time: 954 Sedation end time: 1007 CLINICAL NOTE: The patient has a history of right knee degeneration and knee pain. The patientrequests the radiofrequency ablation in an attempt to improve the pain. The risks, benefits, and alternatives of the procedure were explained to the patient. The patient wishes to proceed. PROCEDURE NOTE: The patient was brought to the procedure room and placed in the supine position.The skin was prepped and draped with ChloraPrep and sterile towels. 9 ml of 1% lidocaine were injected through a 27-gauge needle for local anesthesia. 18 gauge radiofrequency needles with 10 mm active tip were guided under fluoroscopic guidance to the anatomic locations of the right superior medial, superior lateral, and inferior medial genicular nerves. Motor stimulation was negative at 2 V at 2 Hz. 1 mL of 2% lidocaine was injected through each needle. Radiofrequency ablation was carried out at 80 degrees times 120 sec for 2 sessions. 3 mL of 0.5% bupivacaine were injected in divided doses through each needle after negative aspiration. The needles were removed and Band-Aid was applied. Patient tolerated the procedure well and was transferred to recovery jasmin stable condition. PLAN: The patient was instructed to call the clinic in 1-2 days to inform us of any progress. The patientwas encouraged to call at any time with any questions or concerns. Documented By: Mark Harris MD 02/20/24954 Signed By: 02/20/24 1008 [facility]10-15[facility]20[facility] Evaluation note* Diagnosis Onset Date Resolution Status Admit Date Chronic pain acute January 10, 2024 8:34am Other spondylosis with radiculopathy, lumbar region acute Jan gilson2023 8:34am Primary osteoarthritis of ri ght knee acute January 09 8:34am Hypercholesteremia acute 2023 10:31am Hypertension acute January 11, 2024 10:31am IFG (impaired fasting glucose) acute January 11, 2024 10:31am Lumbar spondylosis acute 2023 10:31am Medicare annual wellness vis it, subsequent acute January 10 10:31am Obesity acute January 10, 024 10:31am Primary osteoarthritis of ri ght knee acute January 10 10:31am Screening PSA (prostate spec ific antigen) acute January 10 10:31am Chronic pain acute January 9:37am Other spondylosis with radiculopathy, lumbar region acute Jan gilson2023 9:37am Primary osteoarthritis of ri ght knee acute February 06 9:37am [facility] Work Phone: 1(218) 876-112702-12-2024 Evaluation note* Encounter Date Diagnosis Assessment Notes Treatment Notes Treatment Clinical Notes May, Benign prostatic hyperplasia with lower urinary tract symptoms (ICD-10 - N40.1) [employer] Other 02-12-2024 Evaluation note* Encounter Date Diagnosis Assessment Notes Treatment Notes Treatment Clinical Notes May, Primary osteoarthritis of right knee (ICD-10 - M17.11) [employer] Other 02-06-2024 Evaluation note* Encounter Date Diagnosis Assessment Notes Treatment Notes Treatment Clinical Notes May, Primary osteoarthritis of right knee (ICD-10 - M17.11) May, Other In regards to h is lump on the knee I think this is something that soft tissue related and at this point I would recommend watching it. I did recommend that he use Voltaren gel 4-5 times a day if it does get sore. If he notes that he gets red hot swollen or gets bigger or worsens from a pain standpoint he should give us a call and we can reevaluate and whether or not we need to get any diagnostic imaging like an MRI or even an ultrasound to further characterize this lump. [employer] Other 01-25-2024 Evaluation note* Encounter Date Diagnosis Assessment Notes Treatment Notes Treatment Clinical Notes Apr, Primary osteoarthritis of right knee (ICD-10 - M17.11) Patient voices minimal complaints of pain at this time following a recent right genciular radiofrequency ablation. We will continue to monitor and proceed with repeat treatment to the area as needed. We will follow up in six months, sooner if needed. Overall, patient believes their pain is reasonably well controlled and he is in agreement with our treatment plan. Apr, Other spondylosis with radiculopathy, lumbar region (ICD-10 - M47.26) Tolerable Apr, Chronic pain (ICD-10 - G89.29) Apr, Other Above note writ ten by Ace Ritter MA, School Age Teacher. Edited and approved by Dr. Mark Harris MD. This documentation is being amended on 05/08/23 due to an internal data corruption event that occurred on 05/04/23. This data corruption event was NOT the result of any breach, fraud, or malicious third republican actors and no personal patient information was compromised. [place] [place] [facility] Other 01-09-2024 [facility]* Encounter Date Diagnosis Assessment Notes Treatment Notes Treatment Clinical Notes Mar, Primary osteoarthritis of right knee (ICD-10 - M17.11) Patients primary complaint today remains progressing right knee pain. Recent imaging results show evidence of moderate degenerative changes, consistent with his symptoms. Based on recent positive results, as well as location of pain and exam findings, patient is a candidate for a right genicular nerve radiofrequency ablation which we will proceed with. Risks and benefits of procedure explained to patient; patient verbalizes understanding. Mar, Other spondylosis with radiculopathy, lumbar region (ICD-10 - M47.26) Patient is also voicing complaints of lumbar pain. We discussed obtaining a updated xray of his lumbar spine should his symptoms persist, however, the patient would like to focus on his knee pain at this time. Anatomy of spine discussed in detail with patient in regards to patients condition. Mar, Chronic pain (ICD-10 - G89.29) Mar, Other Above note writ ten by Ace Ritter MA, School Age Teacher. Edited and approved by Dr. Mark Harris MD. [employer] Other 11-28-2023 Evaluation note* Encounter Date Diagnosis Assessment Notes Treatment Notes Treatment Clinical Notes Feb, Primary osteoarthritis of right knee (ICD-10 - M17.11) Patients primary complaint today remains progressing right knee pain. Recent imaging results show evidence of moderate degenerative changes, consistent with his symptoms. Based on recent positive results, as well as location of pain and exam findings, patient is a candidate for a repeat right genicular nerve block which we will proceed with. It was further explained should this provide significant short term relief we will proceed with a subsequent radiofrequency ablation. Risks and benefits of procedure explained to patient; patient verbalizes understanding. Feb, Other spondylosis with radiculopathy, lumbar region (ICD-10 - M47.26) Patient is also voicing complaints of lumbar pain radiating into the posterior aspect of his right lower extremity, extending into his foot. We discussed obtaining a MRI of his lumbar spine should his symptoms persist, however, the patient would like to focus on his knee pain at this time. Anatomy of spine discussed in detail with patient in regards to patients condition. Feb, Chronic pain (ICD-10 - G89.29) Feb, Other Above note writ ten by Ace Ritter MA, School Age Teacher. Edited and approved by Dr. Mark Harris MD. [employer] Other 11-08-2023 Evaluation note* Encounter Date Diagnosis Assessment Notes Treatment Notes Treatment Clinical Notes Feb, Primary osteoarthritis of right knee (ICD-10 - M17.11) Feb, Other 1. We had a geraldine g discussion with the patient today concerning their right knee osteoarthritis. The radiographs do show osteoarthritis of the knee. At this time the patient would like to avoid surgical intervention. We did discuss the risk and benefits of surgical versus nonoperative management. The patient would like to proceed with nonoperative management. We discussed that our options include injections, physical therapy, and the consistent use of anti-inflammatories. All 3 of these options, including their risks and benefits, were discussed at length with the patient. 2. Tylenol: Discussed taking Tylenol (acetaminophen). Recommended adjusting their dosing to 1000mg by mouth up to 3 times a day. 3. NSAIDs: Recommended continuing his meloxicam and Voltaren gel at the same dosage as previously 4. Physical therapy: Discussed formal physical therapy and home regimen. Patient preferred no PT at this time. 5. Injections: Discussed injections as a treatment option. We discussed that since he has not done well with a steroid injection that we could consider viscosupplementation or evaluation by Dr. Harris for radiofrequency nerve ablation. At this point in time we made the mutual decision to move forward with a consult to Dr. Harris for consideration of a radiofrequency nerve ablation. 6. Follow up 3 months after his radiofrequency nerve ablation [employer] Other 10-02-2023 Evaluation note* Encounter Date Diagnosis Assessment Notes Treatment Notes Treatment Clinical Notes Jan, Medicare annual wellness visit, subsequent (ICD-10 - Z00.00) Personalized health advice was given to the beneficiary including a written plan for screenings discussed and provided. Advanced care planning reviewed and/or information given as requested. Additional counseling was provided here today in regards to, [ ]. The above visit was performed by [ ], under direct supervision of [ ]. Document reviewed and amended by provider signed below. Jan, IFG (impaired fasting glucose) (ICD-10 - R73.01) This patient is following a comprehensive diabetic treatment plan. They are checking their feet daily for calluses and nonhealing ulcers. They are being seen for yearly dilated eye examinations. Goals: SBP less than 130, LDL less than 100, FBS less than 140, A1C less than 7%. Continue regular routine monitoring of A1C,] Microalbumin, Dilated eye exam and Foot exam Jan, Elevated cholesterol (ICD-10 - E78.00) Instructed on diet and exercise with continued statin therapy.Discussed the beneficial effects of lowering cholesterol in reducing the risk for cerebrovascular and cardiovascular disease. Jan, Primary hypertension (ICD-10 - I10) This patient is instructed to consume a healthy, low-fat, low-salt diet. They are also encouraged to continue exercise to achieve/maintain a normal BMI. Jan, Primary osteoarthritis of right knee (ICD-10 - M17.11) Quad exercises, ice/heat and Tylenol. NSAIDs for severe pain - aware of adverse effects: bleeding, HTN and edema Jan, Nocturia (ICD-10 - R35.1) Jan, Benign prostatic hyperplasia with lower urinary tract symptoms (ICD-10 - N40.1) Symptoms tolerable w/ treatment. Yearly ARLYN/ PSA Jan, High risk medication use (ICD-10 - Z79.899) Check labs: ALT, CBC Jan, Screening PSA (prostate specific antigen) (ICD-10 - Z12.5) Yearly ARLYN and PSA [employer] Other 08-03-2023 Evaluation note* Encounter Date Diagnosis Assessment Notes Treatment Notes Treatment Clinical Notes Nov, Primary osteoarthritis of right knee (ICD-10 - M17.11) Nov, Other 1. We had a geraldine g discussion with the patient today concerning their right knee osteoarthritis. The radiographs do show osteoarthritis of the knee. At this time the patient would like to avoid surgical intervention. We did discuss the risk and benefits of surgical versus nonoperative management. The patient would like to proceed with nonoperative management. We discussed that our options include injections, physical therapy, and the consistent use of anti-inflammatories. All 3 of these options, including their risks and benefits, were discussed at length with the patient. 2. Tylenol: Discussed taking Tylenol (acetaminophen). Recommended adjusting their dosing to 1000mg by mouth up to 3 times a day. 3. NSAIDs: Prescribed the patient 15 mg Mobic (meloxicam) to be taken by mouth daily. Patient knows to stop his diclofenac. He will also use Voltaren gel 4-5 times a day. 4. Physical therapy: Discussed formal physical therapy and home regimen. Patient preferred no PT at this time. 5. Injections: Discussed injections as a treatment option. After consent was obtained, the right knee was injected with 3cc Kenalog and 7cc bupivicaine using sterile technique. Patient tolerated the injection well. 6. Follow up 3 months [employer] Other 04-27-2023 Evaluation note* Encounter Date Diagnosis Assessment Notes Treatment Notes Treatment Clinical Notes Jul, Eczema, unspecified type (ICD-10 - L30.9) [employer] Other 04-24-2023 Evaluation note* Encounter Date Diagnosis Assessment Notes Treatment Notes Treatment Clinical Notes Jul, Primary osteoarthritis of left shoulder (ICD-10 - M19.012) Jul, Traumatic complete tear of left rotator cuff, subsequent encounter (ICD-10 - S46.012D) Patient instructed on the importance of continued daily shoulder motion exercise and rotator cuff strengthening exercise. Patient may progress increased activity as pain allows. May consider cortisone injection in future if painful Jul, Other specified postprocedural states (ICD-10 - Z98.890) [employer] Other 02-27-2023 Evaluation note* Encounter Date Diagnosis Assessment Notes Treatment Notes Treatment Clinical Notes May, Primary osteoarthritis of left shoulder (ICD-10 - M19.012) May, Traumatic complete tear of left rotator cuff, subsequent encounter (ICD-10 - S46.012D) Patient instructed on the importance of continued daily shoulder motion exercise and rotator cuff strengthening exercise. Discussed that heavy or strenuous use of the shoulder should be avoided. Patient may slowly progress increased activity as pain allows. May, Other specified postprocedural states (ICD-10 - Z98.890) [employer] Other 02-06-2023 Evaluation note* Encounter Date Diagnosis Assessment Notes Treatment Notes Treatment Clinical Notes May, Primary osteoarthritis of left shoulder (ICD-10 - M19.012) May, Traumatic complete tear of left rotator cuff, subsequent encounter (ICD-10 - S46.012D) Extensive discussion about current condition and treatment options available. We will send a Medrol Dose pack. While taking Medrol dose pack do not take Oral Dicofenac Sodium. Once finished with Medrol Dose pack continue oral Diclofenac sodium twice daily. May use Voltaren gel 4-5 times daily. Patient instructed to continue working with PT on bicep tendon exercises. May, Other specified postprocedural states (ICD-10 - Z98.890) [employer] Other 12-05-2022 Evaluation note* Encounter Date Diagnosis Assessment Notes Treatment Notes Treatment Clinical Notes Mar, Primary osteoarthritis of left shoulder (ICD-10 - M19.012) Mar, Traumatic complete tear of left rotator cuff, subsequent encounter (ICD-10 - S46.012D) Mar, Other specified postprocedural states (ICD-10 - Z98.890) Incision site is healing well, no signs of erythema or infection present. Patient is to continue in physical therapy. Patient may discontinue wearing his sling at home at this point. Advised of gentle motion and strengthening exercises at on his own as well. We will follow up in 8 weeks time. Patient voices understanding and is agreeable to treatment plan. [employer] Other 11-07-2022 Evaluation note* Encounter Date Diagnosis Assessment Notes Treatment Notes Treatment Clinical Notes Feb, Primary osteoarthritis of left shoulder (ICD-10 - M19.012) Feb, Traumatic complete tear of left rotator cuff, subsequent encounter (ICD-10 - S46.012D) Feb, Other specified postprocedural states (ICD-10 - Z98.890) Feb, Other Patient instructed to continue use of sling. Instructed on gentle passive pendulum shoulder motion and active elbow and wrist exercise multiple times a day. Discussed limiting use of narcotic if possible. Discussed use of ice and heat for pain relief. [employer] Other 10-25-2022 Evaluation note* Encounter Date Diagnosis Assessment Notes Treatment Notes Treatment Clinical Notes Jan, Other specified postprocedural states (ICD-10 - Z98.890) [employer] Other 10-18-2022 Evaluation note* Encounter Date Diagnosis Assessment Notes Treatment Notes Treatment Clinical Notes Jan, Traumatic complete tear of left rotator cuff, initial encounter (ICD-10 - S46.012A) We will plan on arthroscopic rotator cuff repair. The patient has stated that they do not want to live in this condition any longer and would like to proceed with surgery. I feel that this is a reasonable option at this point and we may be able to improve function and decrease pain. We have discussed the process and procedure in detail including not eating or drinking 8 hrs prior to surgery, the need for general anesthesia and associated respiratory, cardiac, and patient position complications (such as nerve traction and compression). The benefit of regional block anesthesia and complications of arm numbness and neck pain. We discussed that pain and stifffness can be expected after surgery for months. The complications of infection, hardware pullout, cuff repair failure, senior care pain and stiffness are well known problems that can require repeat surgeries. Patient is fully aware that this shoulder may never be the same. We discussed that our team will do everything we can to help achieve the best outcome. Jan, Primary osteoarthritis of left shoulder (ICD-10 - M19.012) [employer] Other 10-18-2022 Evaluation note* Encounter Date Diagnosis Assessment Notes Treatment Notes Treatment Clinical Notes Jan, Encounter for immunization (ICD-10 - Z23) Patient presents today for COVID-19 vaccination booster. Patient pre-vaccination form answers reviewed. Patient denies current illness or allergic reaction to any component of a COVD-19 vaccine. Patient provided with copy of current EUA. [employer] Other 09-08-2022 NotePROCEDURE: XR SHOULDER LT 2V or > HISTORY: Pain of left shoulder joint ; left shoulder pain and decreased range of motion following injury COMPARISON: None. FINDINGS: BONES:No fracture, acute abnormality, or significant arthropathy. Mechanical stabilization of lower cervical spine. SOFT TISSUES:No visible soft tissue swelling. EFFUSION:None visible. OTHER: Negative. IMPRESSION: 1. No acute abnormality of the left shoulder. Minimal degenerative changes. Electronically authenticated by: MARGARITA FRANCIS Date: 2021-12-16 14:57[facility] noteNo assessment information availableGood [facility] Work Phone: Evaluation noteNo InformationNortSelect Specialty Hospital [facility] [employer] Other Evaluation note* Diagnosis Onset Date Resolution Status Hypercholesteremia acute Hypertension acute Lumbar spondylosis acute Primary osteoarthritis of right knee [facility] Work Phone: Evaluation note* Diagnosis Onset Date Resolution Status Chronic pain acute Other spondylosis with radiculopathy, lumbar region acute Primary osteoarthritis of right knee [facility] Work Phone: Evaluation note* Diagnosis Onset Date Resolution Status Chronic pain acute Other spondylosis with radiculopathy, lumbar region acute Primary osteoarthritis of right knee acute Chronic pain acute Other spondylosis with radiculopathy, lumbar region acute Primary osteoarthritis of right knee acute [facility] Work Phone: Evaluation note* Diagnosis Onset Date Resolution Status Chronic pain acute Other spondylosis with radiculopathy, lumbar region acute Primary osteoarthritis of right knee acute Chronic pain acute Other spondylosis with radiculopathy, lumbar region acute Primary osteoarthritis of right knee acute Hypercholesteremia acute Hypertension acute IFG (impaired fasting glucose) acute Lumbar spondylosis acute Medicare annual wellness visit, subsequent acute Obesity acute Primary osteoarthritis of right knee acute Screening PSA (prostate specific antigen) acute [facility] Work Phone: Evaluation note* Diagnosis Onset Date Resolution Status Chronic pain acute Other spondylosis with radiculopathy, lumbar region acute Primary osteoarthritis of right knee acute Chronic pain acute Other spondylosis with radiculopathy, lumbar region acute Primary osteoarthritis of right knee acute Hypercholesteremia acute Hypertension acute IFG (impaired fasting glucose) acute Lumbar spondylosis acute Medicare annual wellness visit, subsequent acute Obesity acute Primary osteoarthritis of right knee acute Screening PSA (prostate specific antigen) acute Chronic pain acute Other spondylosis with radiculopathy, lumbar region acute Primary osteoarthritis of right knee acute [facility] Work Phone: Evaluation note* Diagnosis Onset Date Resolution Status Admit Date Hypercholesteremia acute August 11:28am Hypertension acute August 08 11:28am IFG (impaired fasting glucose) acute August 08, 2024 11:28am Lumbar spondylosis acute August 11:28am Obesity acute August 08, 2024 11:28am Primary osteoarthritis of ri ght knee acute August 08, 2024 11:28am Screening for colon cancer noneactiv e August 08, 2024 11:28am [facility] Work Phone: History general Narrative - Reported* Type Description Date 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 Medical History DJD Left knee Medical History DVT Medical History HTN 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 Surgical History knee replacement-left Surgical History cervical spine bone graft Surgical History lumbar surgery Hospitalization History see surgeries [employer] Other History general Narrative - Reported* Type Description Date 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 Medical History DJD Left knee Medical History DVT Medical History HTN 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 Surgical History knee replacement-left Surgical History cervical spine bone graft Surgical History lumbar surgery 1999's Surgical History left shoulder scope w/RCR Hospitalization History see surgeries [employer] Other History general Narrative - Reported* Type Description Date 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 Begin gentle shoulder pendulum exercises today. 2. Progress to active elbow/wrist motion as tolerated. 3. Utilize your sling during activity. It is ok to remove sling when sitting. 4. You may need to sleep sitting up to prevent pain. 5. Ice shoulder for 20 minutes every hour as tolerated. DRESSING 1. OK to remove dressings in 24 hours. Apply Band-Aids, and the OK to shower. 2. If there are tape strips over the incision line, do not remove them. MEDICATION 1. Take pain medications as directed every 4-6 hours as needed for pain. 2. Progressively decrease pain medication use as soon as possible. POST-OPERATIVE APPOINTMENT: 1. Return in ONE week for re-evaluation. 2. Call [phone] for further questions.[facility] Work Phone: Reason for referral (narrative)No reason for referral information availableFair[facility] Center Work Phone: Advance Directives No Advanced Directives Records Found Advance Directive Response Recorded Date/ Time Advance Directives No February 6:47pm Advance Directive Response Recorded Date/ Time Advance Directives No February 5:47pm Chief Complaint and Reason for Visit Chief Complaint Shoulder pain Chief Complaint vaccine Shoulder pain Shoulder pain Chief Complaint vaccine Shoulder pain Shoulder pain Shoulder pain Chief Complaint Left shoulder scope/ repair Chief Complaint Knee Pain Knee Pain Chief Complaint Knee Pain Knee Pain [id number] Dr Aiken Rt Knee Pain Knee Pain F/U Right Genicular Nerve Block Knee Pain F/U Right Genicular Nerve Block 97059 Chief Complaint [id number] m17.11 6 month Reason for Visit Hypercholesteremia Hypertension Lumbar spondylosis Primary osteoarthritis of right knee Chief Complaint 6 MONTHS Reason for Visit Chronic pain Other spondylosis with radiculopathy, lumbar region Primary osteoarthritis of right knee Chief Complaint 6 MONTHS M47.26 Reason for Visit Chronic pain Other spondylosis with radiculopathy, lumbar region Primary osteoarthritis of right knee Chief Complaint 6 MONTHS M47.26 MRI RESULTS [facility] Reason for Visit Chronic pain Other spondylosis with radiculopathy, lumbar region Primary osteoarthritis of right knee Chronic pain Other spondylosis with radiculopathy, lumbar region Primary osteoarthritis of right knee Chief Complaint 6 MONTHS M47.26 MRI RESULTS [facility] Medicare Wellness Reason for Visit Chronic pain Other spondylosis with radiculopathy, lumbar region Primary osteoarthritis of right knee Chronic pain Other spondylosis with radiculopathy, lumbar region Primary osteoarthritis of right knee Hypercholesteremia Hypertension IFG (impaired fasting glucose) Lumbar spondylosis Medicare annual wellness visit, subsequent Obesity Primary osteoarthritis of right knee Screening PSA (prostate specific antigen) Chief Complaint 6 MONTHS M47.26 MRI RESULTS [facility] Medicare Wellness Back Pain Back Pain Reason for Visit Chronic pain Other spondylosis with radiculopathy, lumbar region Primary osteoarthritis of right knee Chronic pain Other spondylosis with radiculopathy, lumbar region Primary osteoarthritis of right knee Hypercholesteremia Hypertension IFG (impaired fasting glucose) Lumbar spondylosis Medicare annual wellness visit, subsequent Obesity Primary osteoarthritis of right knee Screening PSA (prostate specific antigen) Chief Complaint 6 MONTHS M47.26 MRI RESULTS [facility] Medicare Wellness Back Pain Back Pain F/U RT LUMBAR TRANSFORAMINAL EPI Reason for Visit Chronic pain Other spondylosis with radiculopathy, lumbar region Primary osteoarthritis of right knee Chronic pain Other spondylosis with radiculopathy, lumbar region Primary osteoarthritis of right knee Hypercholesteremia Hypertension IFG (impaired fasting glucose) Lumbar spondylosis Medicare annual wellness visit, subsequent Obesity Primary osteoarthritis of right knee Screening PSA (prostate specific antigen) Chronic pain Other spondylosis with radiculopathy, lumbar region Primary osteoarthritis of right knee Chief Complaint Admit Date M411.02December 18, 2023 7:28pm MRI RESULTS [facility] January 10, 2024 8: 34am Medicare Wellness January 11, 2024 10 :31am Back Pain January 23, 2024 7 :33am Back Pain January 23, 2024 8 :31am F/U RT LUMBAR TRANSFORAMINAL EPI February 07, 2024 9:37am Knee Pain February 20, 2024 9:00am Knee Pain February 20, 2024 9:55am Reason for Visit Admit Date Chronic pain January 10, 2024 8: 34am [facility] January 10, 2024 8:34am Primary osteoarthritis of right knee Jan 8:34am Hypercholesteremia January 11, 2024 10 :31am Hypertension January 11, 2024 10 :31am IFG (impaired fasting glucose) January 102023 10:31am Lumbar spondylosis January 11, 2024 10 :31am Medicare annual wellness visit, subseque nt January 11, 2024 10:31am Obesity January 11, 2024 10 :31am Primary osteoarthritis of right knee Jan 10:31am Screening PSA (prostate specific antigen ) January 11, 2024 10:31am Chronic pain February 07, 2024 9 :37am Other spondylosis with radiculopathy, [facility] region February 07, 2024 9:37am Primary osteoarthritis of right knee Jan 9:37am Chief Complaint Admit Date 6 month f/u August 08, 2024 11:28a m Reason for Visit Admit Date Hypercholesteremia August 08, 2024 11:28a m Hypertension August 08, 2024 11:28a m IFG (impaired fasting glucose) August 08, 2024 11:28am Lumbar spondylosis August 08, 2024 11:28a m Obesity August 08, 2024 11:28a m Primary osteoarthritis of right knee August 08, 2024 11:28am Screening for colon cancer August 08, 2024 11:28am Chief Complaint Admit Date 6 month f/u August 08, 2024 11:28a m RECHECK, DISCUSS INJECTIONS October 14 9:38am M17.11 - Unilateral primary osteoarthrit is, right October 14, 2024 10:10am Reason for Visit Admit Date Contusion of left heel August 08, 2024 11: 28am Hypercholesteremia August 08, 2024 11:28a m Hypertension August 08, 2024 11:28a m IFG (impaired fasting glucose) August 08, 2024 11:28am Lumbar spondylosis August 08, 2024 11:28a m Obesity August 08, 2024 11:28a m Primary osteoarthritis of right knee August 08, 2024 11:28am Screening for colon cancer August 08, 2024 11:28am Chronic pain October 14, 2024 9:38a m Other spondylosis with radiculopathy, [facility] region October 14, 2024 9:38am Primary osteoarthritis of right knee Oct 9:38am Chief Complaint Admit Date 6 month f/u August 08, 2024 11:28a m RECHECK, DISCUSS INJECTIONS October 14 9:38am M17.11 - Unilateral primary osteoarthrit is, right October 14, 2024 10:10am Knee Pain October 29, 2024 7:42 am Family History No Family History Records Found Relationship Condition Age at Onset Recorded Date/T danita father Malignant neoplasm Unknown Not Specified Diabetes mellitus Unknown Congestive heart failure Unknown Atrial fibrillation Unknown brother Diabetes mellitus Unknown Relationship Condition Age at Onset Recorded Date/T danita father Malignant neoplasm Unknown Not Specified Diabetes mellitus Unknown Congestive heart failure Unknown Atrial fibrillation Unknown brother Diabetes mellitus Unknown father Unknown Malignant neoplasm Unknown Not Specified Heart disease Unknown Unknown Relationship Condition Age at Onset Recorded Date/T danita father Malignant neoplasm Unknown mother Diabetes mellitus Unknown Congestive heart failure Unknown Atrial fibrillation Unknown brother Diabetes mellitus Unknown father Unknown Malignant neoplasm Unknown mother Heart disease Unknown Unknown Relationship Condition Age at Onset Recorded Date/T danita father Malignant neoplasm Unknown Unknown mother Diabetes mellitus Unknown Congestive heart failure Unknown Atrial fibrillation Unknown Heart disease Unknown brother Diabetes mellitus Unknown Summary Purpose Additional Source Comments REASON FOR VISIT (unrecogniz ed section and content) Left Shoulder PainModerna Mauricio osterpost op scriptsRecheck Left Shoulder5 WEEK RECHECK8 WEEKSRecheck Left ShoulderRecheck Left ShoulderrefillNo InformationRight Knee PainHandicap PlacardWellnessLab results3 MONTHSRIGHT GENICULAR NERVE BLOCK /VWF/U RIGHT GENICULAR NERVE BLOCKRIGHT GENICULAR NERVE BLOCK /VWF/U RIGHT GENICULAR NERVE BLOCKRIGHT GENICULAR NERVE RFA /VWrefillsF/U RIGHT GENICULAR NERVE RFAOP SP RT KNEE PAIN - HAS DEVELOPED A LUMPmeloxicam Care Teams (unrecognized sec tion and content) Team Status: Inactive Member Role Status Dates Ze Howard DO Primary Care Provider Active Mandeep Ortiz MD Attending Provider Active Team Status: Active Member Role Status Dates Ze Howard DO Primary Care Provider Active Team Status: Inactive Member Role Status Dates Ze Howard DO Primary Care Provider Active Mark Mendoza MD Attending Provider Active Team Status: Inactive Member Role Status Dates Ze Howard DO Primary Care Provider Active Jesus Aiken II, MD Attending Provider Active Team Status: Inactive Member Role Status Dates Ze Howard DO Primary Care Provider Active Mark Harris MD Attending Provider Active Team Status: Inactive Member Role Status Dates Mark Harris MD Attending Provider Active Sta rt: February 23, 2023 End: February 23, 2023 Team Status: Inactive Member Role Status Dates Ze Howard DO Primary Care Provider Active Start: February 28, 2023 End: February 28, 2023 Mark Harris MD Attending Provider Active Sta rt: February 28, 2023 End: February 28, 2023 Team Status: Inactive Member Role Status Dates Mark Harris MD Attending Provider Active Sta rt: March 07, 2023 End: March 07, 2023 Team Status: Inactive Member Role Status Vannesa Howard DO Primary Care Provider Active Start: March 21, 2023 End: March 21, 2023 Mark Harris MD Attending Provider Active Sta rt: March 21, 2023 End: March 21, 2023 Team Status: Inactive Member Role Status Dates Mark Harris MD Attending Provider Active Sta rt: March 29, 2023 End: March 29, 2023 Team Status: Inactive Member Role Status Vannesa Howard DO Primary Care Provider Active Start: April 18, 2023 End: April 18, 2023 Mark aHrris MD Attending Provider Active Sta rt: April 18, 2023 End: April 18, 2023 Team Status: Inactive Member Role Status Vannesa Howard DO Primary Care Provider Active Start: May 16, 2023 End: May 16, 2023 Jesus Aiken II, MD Attending Provider Active Start: May 16, 2023 End: May 16, 2023 Team Status: Inactive Member Role Status Vannesa Howard DO Primary Care Provide r, Attending Provider Active Start: July 10, 2023 End: July 10, 2023 Team Status: Inactive Member Role Status Vannesa Howard DO Primary Care Provider Active Start: November 23, 2023 End: November 23, 2023 Mark Harris MD Attending Provider Active Sta rt: November 23, 2023 End: November 23, 2023 Team Status: Inactive Member Role Status Dates Ze Howard DO Primary Care Provider Active Start: December 18, 2023 End: December 18, 2023 Mark Harris MD Attending Provider Active Sta rt: December 18, 2023 End: December 18, 2023 Team Status: Inactive Member Role Status Dates Ze Howard DO Primary Care Provider Active Start: January 10, 2024 End: January 10, 2024 Mark Harris MD Attending Provider Active Sta rt: January 10, 2024 End: January 10, 2024 Team Status: Inactive Member Role Status Dates Ze Howard DO Primary Care Provide r, Attending Provider Active Start: January 11, 2024 End: January 11, 2024 Team Status: Inactive Member Role Status Vannesa Howard DO Primary Care Provider Active Start: January 23, 2024 End: January 23, 2024 Mark Harris MD Attending Provider Active Sta rt: January 23, 2024 End: January 23, 2024 Team Status: Active Member Role Status Vannesa Howard DO Primary Care Provider Active Start: January 23, 2024 Mark Harris MD Attending Provider, Other Provider Active Start: January 23, 2024 Team Status: Inactive Member Role Status Vannesa Howard DO Primary Care Provider Active Start: February 07, 2024 End: February 07, 2024 Mark Harris MD Attending Provider Active Sta rt: February 07, 2024 End: February 07, 2024 Team Status: Inactive Member Role Status Vannesa Howard DO Primary Care Provider Active Start: February 20, 2024 End: February 20, 2024 Mark Harris MD Attending Provider Active Sta rt: February 20, 2024 End: February 20, 2024 Team Status: Active Member Role Status Vannesa Howard DO Primary Care Provider Active Start: February 20, 2024 Mark Harris MD Attending Provider, Other Provider Active Start: February 20, 2024 Team Status: Inactive Member Role Status Vannesa Howard DO Primary Care Provide r, Attending Provider Active Start: August 08, 2024 End: August 08, 2024 Team Status: Inactive Member Role Status Vannesa Howard DO Primary Care Provider Active Start: August 08, 2024 End: August 08, 2024 Ze Howard DO Attending Provider Active Sta rt: August 08, 2024 End: August 08, 2024 Team Status: Inactive Member Role Status Vannesa Howard DO Primary Care Provider Active Start: October 14, 2024 End: October 14, 2024 Mark Harris MD Attending Provider Active Sta rt: October 14, 2024 End: October 14, 2024 Team Status: Active Member Role Status Dates Ze Howard DO Primary Care Provider Active Start: October 14, 2024 Mark Harris MD Attending Provider Active Sta rt: October 14, 2024 Team Status: Active Member Role Status Dates Ze Howard DO Primary Care Provider Active Start: October 29, 2024 Mark Harris MD Attending Provider Active Sta rt: October 29, 2024 Mark Harris MD Other Provider Active Start: October 29, 2024 Goals (unrecognized section and content) Goals may be documented in a n alternate section (unrecognized sect ion and content) No Status Records FoundNo Status Records Found INFORMATION SOURCE (unrecogn ized section and content) DATE CREATED AUTHOR 03/02/2022 [facility] DATE CREATED AUTHOR 'S MANUELIZ ATION 11/10/2024 [facility] FOR RECORDS PERTAINING TO PATIENTS WHO ARE OR HAVE BEEN ENROLLED IN A CHEMICAL DEPENDENCY/SUBSTANCEABUSE PROGRAM, SOME INFORMATION MAY BE OMITTED. This clinical summary was aggregated from multiple sources. Caution should be exercised in using it in the provision of clinical care. This summary normalizes information from multiple sources, and as a consequence, information in this document may materially change the coding, format and clinical context of patient data. In addition, data may be omitted in some cases. CLINICAL DECISIONS SHOULD BE BASED ON THE PRIMARY CLINICAL RECORDS. [facility] [employer] [facility]. provides no warranty or guarantee of the accuracy or completeness of information in this document.
[2025-01-14 12:58] LABS: Hematocrit 44.4 % (42.0-54.0); Hemoglobin 16.1 g/dL (14.0-18.0); Immature Granulocytes Abs Auto 0.02 10^3/uL (0.00-0.03); Immature Granulocytes Pct Auto 0.3 % (0.0-0.5); Lymphocytes Absolute Auto 1.7 10^3/uL (1.2-3.8); Mean Corpuscular HGB Conc 36.3 g/dL (29.9-35.2); Mean Corpuscular Hemoglobin 32.5 pg (25.9-34.0); Mean Corpuscular Volume 89.5 fL (80.0-94.0); Platelet Count 215 10^3/uL (150-450); Red Blood Count 4.96 10^6/uL (4.70-6.10); White Blood Count 7.6 10^3/uL (4.0-11.0)
[2025-01-14 13:17] LABS: Alanine Aminotransferase 41 U/L (16-63); Albumin Globulin Ratio 1.2; Albumin Level 4.0 g/dL (3.4-5.0); Alkaline Phosphatase 76 U/L (46-116); Anion Gap 14.1; Aspartate Amino Transferase 22 U/L (15-37); Blood Urea Nitrogen 14.0 mg/dL (7.0-18.0); Calcium 8.8 mg/dL (8.5-10.1); Carbon Dioxide 28.2 mmol/L (21.0-32.0); Chloride 106 mmol/L (98-107); Cholesterol 146 mg/dL (<=200); Estimated GFR (African America >60 (>=60 mL/min/1.73m^2); Estimated GFR (Non-African Ame >60 (>=60 mL/min/1.73m^2); Globulin 3.4 g/dL; Glucose 110 mg/dL (74-106); HDL Cholesterol 39 mg/dL (40-60); Potassium 4.3 mmol/L (3.5-5.1); Sodium 144 mmol/L (136-145); Total Protein 7.4 g/dL (6.4-8.2); Triglycerides 150 mg/dL (<=150); VLDL CHOLESTEROL 30.0 mg/dL
== END 2025-01-14 12:10 | disposition home or self-care (01) ==
LOC: LAB 12:11
PROVIDERS: PCP Internal Medicine; Visit Provider Internal Medicine
DX: R73.01 Impaired fasting glucose (principal); E78.00 Pure hypercholesterolemia, unspecified; I10 Essential (primary) hypertension; Z12.5 Encounter for screening for malignant neoplasm of prostate
CPT/HCPCS: 36415; 80053; 80061; 85025; G0103

== ENCOUNTER 2025-01-24 10:54 | Outpatient (OUT) | payer MEDICARE, SELFPAY ==
--- OUTSIDE RECORDS SUMMARY | 2025-01-24 10:59 | XMS_ITS | Clinical Summary ---
Author Organization [facility] Address [address] [place] [id number] Care Team Providers Care Vac Press Operator Name Role Phone Unavailable Primary Care Provider Unavailabl e Allergies Active Allergy Reactions Criticality Noted Date Comments Penicillin G Swelling High 02/22/2012 Medications benazepril 10 mg tablet Take 10 mg by mouth once daily. Active GLUCOSAM SUL NA/CHONDR OCONNOR A NA (GLUCOSAMINE & CHONDROIT SUL.NA ORAL) Take by mouth. Active aspirin, enteric coated (ASPIRIN LOW DOSE) 81 mg EC tablet Take 81 mg by mouth once daily. Active MULTIVITAMIN WITH MINERALS (MULTIVITAMIN & MINERAL FORMULA ORAL) Take by mouth. Active CALCIUM CARBONATE/VITAMI N D3 (CALCIUM 500 + D, D3, ORAL) Take by mouth. Active Magnesium 250 mg Tab Take 250 mg by mouth. Active metoprolol succinate XL, long acting, 25 mg 24 hr tablet Take 25 mg by mouth once daily. Active naproxen sodium 220 mg cap Take by mouth. Active LORATADINE (CLARITIN ORAL) Take by mouth. Active Active Problems Problem Noted Date Diagnosed Date Osteoarthrosis, unspecified whether generalized or localized, lower leg 04/23/2012 Family History Medical History Relation Comments Diabetes Brother kidney cancer [Other] Father CHF, afib [Other] Mother age 92 alive. Relation Status Comments Brother Father Mother Social History Tobacco Use Types Packs/Day Years Used Date Smoking Tobacco: Never Alcohol Use Standard Drinks/Week Comments Yes 0 (1 standard drink = 0.6 oz pur e alcohol) social Sex and Gender Information Value Date Recorded Sex Assigned at Not on file Legal Sex Male 10:17 AM EST Gender Identity Not on file Sexual Orientation Not on file Last Filed Vital Signs Vital Sign Reading Time Taken Comments Blood Pressure 130/78 04/26/2012 8:00 AM EST Pulse 94 04/26/2012 8:00 AM EST Temperature 37 C (98.6 F) 04/26/2012 8:00 AM EST Respiratory Rate 18 04/26/2012 8:00 AM EST Oxygen Saturation 97% 04/26/2012 8:00 AM EST Inhaled Oxygen Concentration - - Weight 113.4 kg (250 lb) 04/23/2012 7:26 PM EST Height 182.9 cm (6') 04/23/2012 7:26 PM EST Body Mass Index 33.91 04/23/2012 7:26 PM EST Plan of Treatment Health Maintenance Due Date Last Done Comments Anxiety Screening 1970 Depression Screening 1970 Hepatitis C Screening 1970 DTaP,Tdap,Td Vaccine (1 - Tdap) 09/08/1971 Lipid Screening 09/08/1987 CT Colonography 1997 Cologuard (FIT-DNA) 1997 Colonoscopy 1997 Colorectal Cancer Screening 1997 Fecal Occult Blood 1997 Sigmoidoscopy 1997 Pneumococcal Vaccine: 50+ (1 of 1 - PCV) 2002 Shingrix Vaccine (1 of 2) 2002 Diabetes Screening 04/25/2015 04/25/2012, 0 04/24/2012, 04/18/2012 Advance Directive Discussion 04/10/2024 Covid-19 Vaccine ( - 2024- season) 2024 Influenza Vaccine (#1) 2024 RSV Vaccine (1 - 1-dose 75+ series) 09/08/2027 Medical Devices Implanted Type Area Procedure Writer Device Identifier Shelf Expiration Date Model / Serial / Lot Cement Bone Simplex P W/ Tobramycin 1gm - [id number] Implanted:Qty: 2 on 04/23/2012 at [facility] Cement / Putty Left: Bone - Knee [employer] 12/08/2013 [id number] / / [id number] Adpt Fem Neut Kn Neut Scio - [id number] Implanted:Qty: 1 on 04/23/2012 at [facility] Implant Left: Bone - Knee [employer] 04/09/2022 [id number] / / [id number] Imc-Jr-G-Kind Implant - [id number] Implanted:Qty: 1 on 04/23/2012 at [facility] Implant Left: Bone - Knee [employer] 05/10/2018 [id number] / / [id number] Description:[place] revisi on universal stem fluted Adpt Hd 5d Sig Ofst Fem - [id number] Implanted:Qty: 1 on 04/23/2012 at [facility] Joint - Knee Left: Bone - Knee [employer] 04/09/2022 [id number] / / [id number] Comp Tibtry 4 Kn Ankit Mdlr Sig - [id number] Implanted:Qty: 1 on 04/23/2012 at [facility] Joint - Knee Left: Bone - Knee [employer] 02/07/2022 [id number] / / [id number] Comp Fem 5 Lt Kn Ps Pfc Sig - [id number] Implanted:Qty: 1 on 04/23/2012 at [facility] Joint - Knee Left: Bone - Knee [employer] 02/07/2022 [id number] / / [id number] Ins Tib 5 10mm Kn Cocr Uhmw - [id number] Implanted:Qty: 1 on 04/23/2012 at [facility] Joint - Knee Left: Bone - Knee [employer] 2016 [id number] / / [id number] Dome Pat 35mm Pfc Sig Sm Kn - [id number] Implanted:Qty: 1 on 04/23/2012 at [facility] Joint - Patella Left: Bone - Knee [employer] 02/07/2017 [id number] / / [id number] Procedures Procedure Name Priority Date/Time Associated Diagnosis Comments BASIC METABOLIC PANEL (EU,FV,HL,NOHEMI,MM,SP) Routine 04/25/2012 6:18 AM EST from Last 3 Months or Most Recently Relevant to Health Maintenance Results * (ABNORMAL) BASIC METABOLIC PANEL (EU,FV,HL,LK,NOHEMI,MM,SP) (04/25/2012 6:18 AM EST) Pathologist [facility] Glucose 101(H) 65 - 100 mg/dL [facility] BUN 25 10 - 25 mg/dL [facility] Creatinine 0.97 0.70 - 1.40 mg/dL [facility] Sodium 137 135 - 146 mmol/L [facility] Potassium 4.2 3.5 - 5.0 mmol/L [facility] Chloride 102 98 - 110 mmol/L [facility] CO2 30 23 - 32 mmol/L [facility] Calcium 8.8 8.5 - 10.5 mg/dL [facility] Glom Filtration Rate (AA) >60 >60 [facility] Glom Filtration Rate (HIEU) >60 >60 . [facility] Blood specimen (specimen) BLOOD SPECIMEN / Unknown 04/25/2012 6:18 AM EST 04/25/2012 7:19 AM EST Kiara Pena PRODUCT SAFETY COORDINATOR.[facility] Final Result [facility] [address] [address] from Last 3 Months or Most Recently Relevant to Health Maintenance
--- OUTSIDE RECORDS SUMMARY | 2025-01-24 10:59 | XMS_ITS | Clinical Summary ---
Author Organization [facility] Address [address] [facility], [address] [place] [address] Care Team Providers Care Trampoline Team Coach Name Role Phone Unavailable Primary Care Provider Unavailabl e Allergies Active Allergy Reactions Criticality Noted Date Comments Penicillins 03/01/2011 Medications aspirin 81 MG chewable tablet Take 81 mg by mouth daily. Active metoprolol (LOPRESSOR) 25 MG tablet Take 25 mg by mouth 2 times daily. Active omeprazole (PRILOSEC) 20 MG capsule Take 20 mg by mouth daily. Active calcium carbonate (OSCAL) 500 MG TABS tablet Take 500 mg by mouth daily. Active ferrous sulfate 325 (65 FE) MG tablet Take 325 mg by mouth daily (with breakfast). Active oxycodone-acetam inophen (PERCOCET) 5-325 MG per tablet Take 1 tablet by mouth every 4 hours as needed. Active oxycodone (OXYCONTIN) 10 MG CR tablet Take 10 mg by mouth every 12 hours. Active warfarin (COUMADIN) 7.5 MG tablet Take 7.5 mg by mouth Daily. Active vitamin D (ERGOCALCIFEROL) 34066 UNIT CAPS capsule Take 50,000 Units by mouth once a week. Active docusate sodium (COLACE) 100 MG capsule Take 100 mg by mouth 2 times daily. Active oxycodone-acetam inophen (PERCOCET) 5-325 MG per tablet Take 1 tablet by mouth every 6 hours as needed. 60 tablet 0 03/01/2011 Active benazepril (LOTENSIN) 10 MG tablet Take 10 mg by mouth daily. Active naproxen (NAPROSYN) 250 MG tablet Take 250 mg by mouth 2 times daily (with meals). Active Active Problems No known active problems Social History Tobacco Use Types Packs/Day Years Used Date Smoking Tobacco: Never Alcohol Use Standard Drinks/Week Comments No 0 (1 standard drink = 0.6 oz pur e alcohol) Sex and Gender Information Value Date Recorded Sex Assigned at Not on file Legal Sex Male 8:00 PM EST Gender Identity Not on file Sexual Orientation Not on file Last Filed Vital Signs Vital Sign Reading Time Taken Comments Blood Pressure - - Pulse - - Temperature - - Respiratory Rate - - Oxygen Saturation - - Inhaled Oxygen Concentration - - Weight 113.4 kg (250 lb) 07/28/2011 1:00 PM EDT Height 182.9 cm (6') 07/28/2011 1:00 PM EDT Body Mass Index 33.91 07/28/2011 1:00 PM EDT Plan of Treatment Not on file Insurance [facility]
--- OUTSIDE RECORDS SUMMARY | 2025-01-24 11:02 | XMS_ITS | CCD ---
Author Organization [facility] Care Team Providers Care Pearl Peller Name Role Phone Mark Mendoaz Unavailable DO Ze Howard Primary Care Provider [phone] MD Mandeep Ortiz Attending Provider Emilee Schwab Unavailable MD Mark Mendoza Attending Provider [phone] APARNA, DR THOMPSON Admitting Unavailable BALL, DR THOMPSON Attending Unavailable BALL, DR THOMPSON Primary Care Unavailable BALL, DR THOMPSON Consulting Unavailable BALL, DR THOMPSON Admitting Unavailable BALL, DR THOMPSON Attending Unavailable BALL, DR THOMPSON Primary Care Unavailable BALL, DR THOMPSON Consulting Unavailable WEST, DR INGRID Stuart Consulting Unavailable CARRASQUILLO, DR MICHELLE Brock Admitting Unavailable CARRASQUILLO, DR MICHELLE Brock Attending Unavailable BALL, DR THOMPSON Primary Care Unavailable PENNY, DR MARGARITA Abel Consulting Unavailable CARRASQUILLO, DR MICHELLE Brock Consulting Unavailable CARRASQUILLO, DR MICHELLE Brock Admitting Unavailable CARRASQUILLO, DR MICHELLE Brock Attending Unavailable BALL, DR THOMPSON Primary Care Unavailable Mary Jo Kim Unavailable DO Ze Howard Primary Care Provider [phone] MD Mark Mendoza Attending Provider [phone] Ze Howard Unavailable DO Ze Howard Primary Care Provider MD Jesus Aiken II Attending Provider Jesus Aiken II Unavailable Mark Harris Unavailable DO Ze Howard Primary Care Provider [phone] MD Mark Harris Attending Provider [phone] MD Jesus Aiken II Attending Provider DO Ze Howard Primary Care Provider MD Mark Harris Attending Provider [phone] MD Jesus Aiken II Attending Provider [phone] Ball, DO Ze Primary Care Provider MD Mark Harris Attending Provider Ball DO, Ze Primary Care Provider Mark Harris MD Attending Provider Ball DO, Ze Primary Care Provider Ball DO, Ez Attending Provider Steven BOONE, Mark Attending Provider [phone] Mark Harris MD Other Provider Steven, Mark Admitting Unavailable Felter, Mark Attending Unavailable [...] Attending Unavailable Ball, Ze Primary Care Unavailable Ball DO, Ze Primary Care Provider Mark Harris MD Attending Provider Ball DO, Ze Attending Provider [phone] BALL, ZE Primary Care Physician Attila BOONE, Jesus Omalley Attending Provider MALVIN Michaud Attending Unavailable Allergies Allergy Classification Reported Allergen(s) Allergy Type Date of Onset Reaction(s) Facility (20 sources) Penicillin Drug Allergy Unknown, lip swelling [employer] Other (10 sources) Penicillins; Translations: [Penicillins] Allergy to substance 01-27-[address] [facility] (3 sources) Allergies Reconciled Propensity to adverse reactions Unknown [employer] Other (3 sources) Substance with penicillin structure and antibacterial mechanism of action (substance) Drug allergy Unknown [employer] Other (3 sources) patient allergy list reviewed by nurse or physicia Propensity to adverse reactions 01-25-20 13 Comment:Done [employer] Other Medications Current Medications Medication Drug Class(es) Dates Sig (Normalized) Sig (Original) acetaminophen 325 mg / oxyCODONE hydrochloride 5 mg oral tablet (10 sources) Opioid Agonist Start: 02-01-2022 take 1 tablet by mouth every four hours as needed for pain Percocet 5-325 MG 1 tablet as needed for pain Orally up to every 4 hrs for 5 days MARC: [id number] Jan, Active take 1 tablet by mouth [...] 26, 2022 12:00am Complies with drug therapy Start: 09-24-2014 aspirin 81 mg Oral EC Tab Refills(s) 0, Blood Thinner Start Date: 09/24/14 Status: Ordered Repeat number: 1 atorvastatin 20 mg oral tablet (20 sources) HMG-CoA Reductase Inhibitor Start: 05-02-2024 Atorvastatin 20 mg tablet Active 0 .ROUTE .COMPLEX May 02, 2024 7:52am TAKE 1 TABLET DAILY EVERY EVENING Complies with drug therapy Start: 09-24-2014 End: 05-02-2024 take 1 tablet by mouth once daily Atorvastatin 20 mg tablet Discontinued 20 MG PO Daily January 26, 2022 12:00am May 02, 2024 7:52am benazepril hydrochloride 10 mg oral tablet (20 sources) Angiotensin Converting Enzyme Inhibitor Start: 05-02-2024 Benazepril 10 mg tablet Active 0 .ROUTE .COMPLEX May 02, 2024 7:52am TAKE 1 TABLET DAILY Complies with drug therapy Start: 05-02-2024 Benazepril 10 mg tablet Active 0 .ROUTE .COMPLEX May 02, 2024 7:52am TAKE 1 TABLET DAILY Start: 09-24-2014 End: 05-02-2024 take 1 tablet by mouth [...] 12 hrs for 2 day(s) Jan, Active {2 (480 ML) (magnesium sulfate 0.0277 MEQ/ML / potassium sulfate 0.0374 MEQ/ML / sodium sulfate 0.257 MEQ/ML Oral Solution) } Pack [Suprep Bowel Prep Kit] (1 source) Start: 01-21-2025 Suprep Bowel Prep Kit oral liquid 177 mL, Oral, As Directed for 2 dose(s), 1 kit(s), Refill(s) 0, dilute each 177 ml bottle and drink according to box directions or as directed by physician, [id number], 182, cm, 01/21/25 10:25:00 EDT, Height/Length Dosing, 114, kg, 01/21/25 10:25:00 EDT, Weight Dosing Start Date: 01/21/25 Status: Ordered Quantity: 1.0 Unit: kit(s) Repeat number: 1 Indications: Encounter for screening for malignant neoplasm of colon; meloxicam (20 sources) Nonsteroidal Anti-inflammatory Drug Start: 01-21-2025 meloxicam Daily, Refills(s) 0 Start Date: 01/21/25 Status: Ordered Repeat number: 1 Start: 02-22-2024 End: 11-11-2024 take 1 tablet by mouth once daily Meloxicam 15 mg tablet Active 0 .ROUTE .COMPLEX 90 November 11, 2024 8:26am TAKE 1 TABLET BY MOUTH EVERY DAY [...] release 24 hr Active 0 .ROUTE .COMPLEX 90 May 02, 2024 7:51am TAKE 1 TABLET DAILY Complies with drug therapy Start: 05-02-2024 Metoprolol Suc cinate 25 mg tablet extended release 24 hr Active 0 .ROUTE .COMPLEX 90 May 02, 2024 7:51am TAKE 1 TABLET DAILY Start: 01-26-2022 End: 05-02-2024 take 1 tablet by mouth once daily Metoprolol Succinate 25 mg tablet extended release 24 hr Discontinued 25 MG PO Daily January 26, 2022 12:00am May 02, 2024 7:51am Start: 09-24-2014 take 1 tablet by aniya th once daily Metoprolol tartrate 25 mg Tab 25 mg = 1 tab(s), Oral, Daily, # 30 tab(s), Refills(s) 0, High blood pressure Start Date: 09/24/14 Status: Ordered Quantity: 30.0 Unit: tab(s) Repeat number: 1 Multi Vitamin/Minerals (20 sources) Multi Vitamin/Mi nerals as directed Orally Once a day Active Multivitamins and Minerals (1 source) Start: 09-24-2014 Multivitamins and Minerals Refill(s) 0 Start Date: 09/24/14 Status: Ordered Repeat number: 1 naproxen sodium 220 mg oral tablet (5 sources) Nonsteroidal Anti-inflammatory Drug take 1 tablet by mouth every twelve hours at mealtime as needed Naproxen Sodium 220 MG 1 tablet with food or milk as needed Orally every 12 hrs Active tamsulosin hydrochloride 0.4 mg oral capsule (20 sources) alpha-Adrenergic Martir Start: 01-21-2025 take 1 mg by mouth once daily tamsulosin 0.4 mg Cap mg cap(s), Oral, Daily, Refills(s) 0 Start Date: 01/21/25 Status: Ordered Repeat number: 1 Start: 05-02-2024 Tamsulosin 0.4 mg capsule Active 0 .ROUTE .COMPLEX May 02, 2024 7:52am TAKE 1 CAPSULE DAILY Complies with drug therapy Start: 05-02-2024 Tamsulosin 0.4 mg capsule Active 0 .ROUTE .COMPLEX May 02, 2024 7:52am TAKE 1 CAPSULE [...] 10-14-2024 Chronic Other aftercare (2 sources) Other penitentiary (current) drug therapy; Translations: [OTH LONG-TERM CURRENT DRUG THERAPY] Onset: 01-10-2022 Episodic Other aftercare (3 sources) Long-term current use of drug therapy; Translations: [Other penitentiary (current) drug therapy] Episodic Other circulatory disease [...] Chronic Other nutritional; endocrine; and metabolic disorders (20 sources) Obesity; Translations: [Obesity, unspecified] 07-10-2023 Chronic Other nutritional; endocrine; and metabolic disorders (3 sources) Morbid obesity; Translations: [Morbid (severe) obesity due to excess calories] Chronic Other nutritional; endocrine; and metabolic disorders (5 sources) Obesity, unspecified; Translations: [Obesity, unspecified] 01-11-2024 Chronic Other screening for suspected conditions (not mental disorders or infectious disease) (20 sources) Encounter for screening for malignant neoplasm of prostate; Translations: [Patient encounter status] Onset: 01-10-2022 Episodic Comment on above: PSA: 1.Jan, 1.Jan, PSA: 1.Jan, 1.Jan, 1.91 - 01/2025 Other skin disorders (3 sources) Vesicular eczema [...] shoulder, subsequent encounter] Episodic Superficial injury; contusion (9 sources) Contusion of left foot, initial encounter; Translations: [Contusion of left heel] 08-08-2024 Episodic Unclassified (3 sources) Long-term current use of drug therapy; Translations: [Long-term (current) use of other medications] Onset: 09-18-2017 Unclassified (4 sources) Call Dr. Miles office to schedule a [...] Test Name Value Interpretation Reference Range Facility Gastroenterology Office/Clin ic Noteon 01-21-2025 Gastroenterology Office/Clinic Note Gastroenterology Office/Clinic Note Chief Complaint screening colonoscopy HPI Staff NEW Patient is a(n) 74 year old male who was referred by Dr. Howard for a screening colonoscopy. Denies Fhx colon cancer. Denies previous EGD. Last colonoscopy was in 2014. Denies hx colon cancer/polyps. Denies n/v/c/d, abd pain, bloody or mucus stools. Blood thinners? aspirin GLP-1 agonists? No History of Present Illness I have reviewed the HPI obtained by staff and I verified the info taken, my notes are reflected in the assessment and plan Review of Systems PHQ Score Initial Depression Screen Score: 0 SCORE All systems reviewed, negative except as mentioned above Physical Exam Vitals & Measurements RR: 16 BP: 138/78 HT: 72 in HT: 182 cm WT: 251.327 lb WT: 114 kg BMI: 34.42 General: alert, no acute distress HEENT: atraumatic normocephalic Extremities: no deformity, no trauma Procedure Colonoscopy 09/25/2014 w/ Dr. Euceda: Impression and Plan Diagnosis: Internal hemorrhoids and diverticulosis otherwise normal colonoscopy.. Recommendations: Follow-up. Repeat colonoscopy: in 10 years. Assessment/Plan 1. Screen for colon cancer (Z12.11: Encounter for screening for malignant neoplasm of colon) Last colonoscopy 2014 w/ no polyps. Will proceed with colonoscopy Average risk No GI symptoms -Schedule Colonoscopy to evaluate. Discussed risks such as bleeding, injury and perforation as well as benefits. Patient agreeable. Ordered: magnesium/potassium/so dium sulfates (obsolete), 177 mL, Oral, As Directed for 2 dose(s), 1 kit(s), Refill(s) 0, dilute each 177 ml bottle and drink according to box directions or as directed by physician, [id number], 182, cm, 01/21/25 10:25:00 EDT, Height/Length Dosing, 114, kg, 01/21/25 10... Colonoscopy (Hospital Procedure) Current tobacco non-user 1036F E&M of New Patient Low 30-44 Min 38063 Most recent diastolic blood pressure <80 mm Hg 3078F Systolic BP 130-139 mm Hg (Most Recent) 3075F Follow-up No qualifying data available Follow up pending colonoscopy results Problem List/Past Medical History Ongoing Obesity Historical No qualifying data Medications aspirin 81 mg Oral EC Tab atorvastatin 20 mg Tab benazepril 10 mg Tab meloxicam, Daily Metoprolol tartrate 25 mg Tab, 25 mg= 1 tab(s), Oral, Daily Multivitamins and Minerals Suprep Bowel Prep Kit oral liquid, 177 mL, Oral, As Directed tamsulosin 0.4 mg Cap, Oral, Daily Allergies penicillins Social History Alcohol Current. Beer. 1-2 times per week., 01/17/2025 Substance Abuse Never., 01/17/2025 Tobacco Never (less than 100 in lifetime) Tobacco Use:., 01/21/2025 Family History Family history is negative Normal [facility] Comment on above: Result Comment: Elec tronically Signed By: Jaswant COOMBS, Brenda العلي\.br\Date and Time Signed: 01/21/25 10:44 EDT Basophils Auto (Bld) [#/Vol] Ordered By: Ze Howard on 01-14-2025 Basophils (Bld) [#/Vol] 0.1 10 3/uL 0.0-0.1 [facility] Basophils/100 WBC Auto (Bld) Ordered By: Ze Howard on 01-14-2025 Basophils/100 WBC (Bld) 0.9 % 0.2-2.0 [facility] Cholesterol in LDL Calc [Mas s/Vol]Ordered By: Ze Howard on 01-14-2025 Cholesterol in LDL [Mass/Vol] 77.0 mg/dL [facility] Comment on above: <100 mg/dl [id number] 0-129 mg/dl NEAR OR ABOVE [id number] mg/dl BORDERLINE [id number] mg/dl HIGH>190 mg/dl VERY HIGH Cholesterol in VLDL Calc [Ma ss/Vol]Ordered By: Ze Howard on 01-14-2025 Cholesterol in VLDL [Mass/Vol] 30.0 mg/dL [facility] Eosinophils/100 WBC Auto (Bl d)Ordered By: Ze Howard on 01-14-2025 Eosinophils/100 WBC (Bld) 2.5 % 0.9-7.0 [facility] Erythrocyte distribution wid th Auto (RBC) [Ratio]Ordered By: Ze Howard on 01-14-2025 Erythrocyte distribution width (RBC) [Ratio] 12.1 % 11.0-15.0 [facility] Globulin Calc (S) [Mass/Vol] Ordered By: Ze Howard on 01-14-2025 Globulin (S) [Mass/Vol] 3.4 g/dL [facility] Glomerular filtration rate ( GFR) estimation in non- AmericanOrdered By: Ze Howard on 01-14-2025 GFR/1.73 sq M.predicted among non-blacks MDRD (S/P/Bld) [Vol rate/Area] mL/min/{1.73_m2} >=60 mL/min/1.[address] [facility] Hematocrit Auto (Bld) [Volum e fraction]Ordered By: Ze Howard on 01-14-2025 Hematocrit (Bld) [Volume fraction] 44.4 % 42.0-54.0 [facility] Hemoglobin [Mass/volume] in BloodOrdered By: Ze Howard on 01-14-2025 Hemoglobin (Bld) [Mass/Vol] 16.1 g/dL 14.0-18.0 [facility] Laboratory - Chemistry and C hemistry - challengeOrdered By: Ze Howard on 01-14-2025 Albumin [Mass/Vol] 4.0 g/dL 3.4-5.0 [facility] ALP [Catalytic activity/Vol] 76 U/L 46-116 [facility] ALT [Catalytic activity/Vol] 41 U/L 16-63 [facility] AST [Catalytic activity/Vol] 22 U/L 15-37 [facility] Bilirubin [Mass/Vol] 0.6 mg/dL 0.2-1.0 [facility] Calcium [Mass/Vol] 8.8 mg/dL 8.5-10.1 [facility] Chloride [Moles/Vol] 106 mmol/L 98-107 [facility] Cholesterol [Mass/Vol] 146 mg/dL <=200 [facility] Cholesterol in HDL [Mass/Vol] 39 mg/dL Low 40-60 [facility] Comment on above: > or =60 mg/dl - LOW CARDIOVASCULAR RISK<40 mg/dl - HIGH CARDIOVASCULAR RISK CO2 [Moles/Vol] 28.2 mmol/L 21.0-32.0 [facility] Creatinine [Mass/Vol] 0.86 mg/dL 0.70-1.30 [facility] GFR/1.73 sq M.predicted MDRD (S/P/Bld) [Vol rate/Area] mL/min/{1.73_m2} >=60 mL/min/1.[address] [facility] Glucose [Mass/Vol] 110 mg/dL High 74-106 [facility] Potassium [Moles/Vol] 4.3 mmol/L 3.5-5.1 [facility] Protein [Mass/Vol] 7.4 g/dL 6.4-8.2 [facility] Sodium [Moles/Vol] 144 mmol/L 136-145 [facility] Triglyceride [Mass/Vol] 150 mg/dL <=150 [facility] Urea nitrogen [Mass/Vol] 14.0 mg/dL 7.0-18.0 [facility] Urea nitrogen/Creatinine [Mass ratio] 16.3 mg/mg [facility] Laboratory - Hematology and Cell countsOrdered By: Ze Howard on 01-14-2025 Immature granulocytes/100 WBC (Bld) 0.3 % 0.0-0.5 [facility] Leukocytes [#/volume] correc vero for nucleated erythrocytes in Blood by Automated counOrdered By: Ze Howard on 01-14-2025 WBC corrected for nucl RBC Auto (Bld) [#/Vol] 7.6 10 3/uL 4.0-11.0 [facility] Lymphocytes Auto (Bld) [#/Vo l]Ordered By: Ze Howard on 01-14-2025 Lymphocytes (Bld) [#/Vol] 1.7 10 3/uL 1.2-3.8 [facility] Lymphocytes/100 WBC Auto (Bl d)Ordered By: Ze Howard on 01-14-2025 Lymphocytes/100 WBC (Bld) 22.1 % 20.5-60.0 [facility] MCH Auto (RBC) [Entitic mass ]Ordered By: Ze Howard on 01-14-2025 MCH (RBC) [Entitic mass] 32.5 pg 25.9-34.0 [facility] MCHC Auto (RBC) [Mass/Vol]Or dered By: Ze Howard on 01-14-2025 MCHC (RBC) [Mass/Vol] 36.3 g/dL High 29.9-35.2 [facility] MCV Auto (RBC) [Entitic vol] Ordered By: Ze Howard on 01-14-2025 MCV (RBC) [Entitic vol] 89.5 fL 80.0-94.0 [facility] Monocytes Auto (Bld) [#/Vol] Ordered By: Ze Howard on 01-14-2025 Monocytes (Bld) [#/Vol] 0.6 10 3/uL 0.3-0.8 [facility] Monocytes/100 WBC Auto (Bld) Ordered By: Ze Howard on 01-14-2025 Monocytes/100 WBC (Bld) 8.0 % 1.7-12.0 [facility] Neutrophils Auto (Bld) [#/Vo l]Ordered By: Ze Howard on 01-14-2025 Neutrophils (Bld) [#/Vol] 5.1 10 3/uL 1.4-6.5 [facility] Neutrophils/100 WBC Auto (Bl d)Ordered By: Ze Howard on 01-14-2025 Neutrophils/100 WBC (Bld) 66.2 % 43.0-75.0 [facility] No Panel InformationOrdered By: Ze Howard on 01-14-2025 Eosinophils # (Auto) 0.2 10 3/uL 0.0-0.7 [facility] Immature Granulocyte # (Auto) 0.02 10 3/uL 0.00-0.03 [facility] Prostate Specific Antigen Screen 1.91 ng/mL <=4.00 [facility] Platelet mean volume Auto (B ld) [Entitic vol]Ordered By: Ze Howard on 01-14-2025 Platelet mean volume (Bld) [Entitic vol] 9.7 fL 9.5-13.5 [facility] Platelets Auto (Bld) [#/Vol] Ordered By: Ze Howard on 01-14-2025 Platelets (Bld) [#/Vol] 215 10 3/uL 150-450 [facility] RBC Auto (Bld) [#/Vol]Ordere d By: Ze Howard on 01-14-2025 RBC (Bld) [#/Vol] 4.96 10 6/uL 4.70-6.10 [facility] Serum or plasma albumin/glob ulin mass ratioOrdered By: Ze Howard on 01-14-2025 Albumin/Globulin [Mass ratio] 1.2 {ratio} [facility] Serum or plasma anion gap de terminationOrdered By: Ze Howard on 01-14-2025 Anion gap [Moles/Vol] 14.1 mmol/L [facility] Serum or plasma total choles terol/high density lipoprotein (HDL) cholesterol mass ratOrdered By: Ze Howard on 01-14-2025 Cholesterol.total/Chol esterol in HDL [Mass ratio] 3.7 {ratio} [facility] Comment on above: 3.3 - 4.4 LOW RISK4. 4 - 7.1 AVERAGE RISK7.1 - 11.0 MODERATE RISK>11.0 HIGH RISK X-ray reportOrdered By: Suleman Balderrama on 10-14-2024 Study report [facility] [address] [place] [address] XRay Report Signed Patient: Bruce Stanton MR#: [id number] : 1950 Acct:[id number] Age/Sex: 74 / M ADM Date: 5 Loc: [facility] [place] Room: Type: [facility] Attending Dr: Mark Harris MD Copies to: [...] Balderrama M.D. 10/14/2024 1:53 PM Dictation Location: RADIO-PC-23 Transcribed By: KARY 10/14/24 135 Dictated By: Suleman Balderrama II, MD 10/14/241351 Signed By: 10/14/[address] [facility] Work Phone: XR knee RT 2Von 10-14-2024 XR knee RT 2V [facility] [address] [place] [address] XRay Report Signed Patient: Bruce Stanton MR#: [id number] : 1950 Acct:[id number] Age/Sex: 74 / M ADM Date: 10/14/24 Loc: [facility] [place] Room: Type: [facility] Attending Dr: Mark Harris MD Copies to: [...] Balderrama M.D. 10/14/2024 1:53 PM Dictation Location: RADIO-PC-23 Transcribed By: KARY 10/14/24 135 Dictated By: Suleman Balderrama II, MD 10/14/24 135 Signed By: 07/07/25 1353 Normal [facility] Basophils Auto (Bld) [#/Vol] on 01-11-2024 Basophils (Bld) [#/Vol] 0.1 10 3/uL 0.0-0.1 [facility] Basophils (Bld) [#/Vol] Automated basophil count 0.0-0.1 [facility] Basophils/100 WBC Auto (Bld) on 01-11-2024 Basophils/100 WBC (Bld) 0.8 % 0.2-2.0 [facility] Basophils/100 WBC (Bld) Automated basophil % 0.2-2.0 [facility] Cholesterol in LDL Calc [Mas s/Vol]on 01-11-2024 Cholesterol in LDL [Mass/Vol] 84.8 mg/dL [facility] Comment on above: <100 mg/dl [id number] 0-129 mg/dl NEAR OR ABOVE [id number] mg/dl BORDERLINE [id number] mg/dl HIGH>190 mg/dl VERY HIGH Cholesterol in LDL [Mass/Vol] Cholesterol in LDL [Mass/volume] in Serum or Plasma by calculation [facility] Comment on above: <100 mg/dl [id number] 0-129 mg/dl NEAR OR ABOVE [id number] mg/dl BORDERLINE [id number] mg/dl HIGH>190 mg/dl VERY HIGH Cholesterol in VLDL Calc [Ma ss/Vol]on 01-11-2024 Cholesterol in VLDL [Mass/Vol] 20.2 mg/dL [facility] Cholesterol in VLDL [Mass/Vol] Cholesterol in VLDL [Mass/volume] in Serum or Plasma by calculation [facility] Eosinophils/100 WBC Auto (Bl d)on 01-11-2024 Eosinophils/100 WBC (Bld) 2.6 % 0.9-7.0 [facility] Eosinophils/100 WBC (Bld) Automated eosinophil % 0.9-7.0 [facility] Erythrocyte distribution wid th Auto (RBC) [Ratio]on 01-11-2024 Erythrocyte distribution width (RBC) [Ratio] 11.8 % 11.0-15.0 [facility] Erythrocyte distribution width (RBC) [Ratio] Erythrocyte distribution width [Ratio] by Automated count 11.0-15.0 [facility] Estimated glomerular filtrat ion rate (GFR) non- Americanon 01-11-2024 GFR/1.73 sq M.predicted among non-blacks MDRD (S/P/Bld) [Vol rate/Area] mL/min/{1.73_m2} >=60 mL/min/1.[address] [facility] GFR/1.73 sq M.predicted among non-blacks MDRD (S/P/Bld) [Vol rate/Area] Estimated glomerular filtration rate (GFR) non- >=60 mL/min/1.[address] [facility] Globulin Calc (S) [Mass/Vol] on 01-11-2024 Globulin (S) [Mass/Vol] 3.1 g/dL [facility] Globulin (S) [Mass/Vol] Serum globulin measurement by calculation (mass/volume) [facility] Glucose mean value [Mass/vol ume] in Blood Estimated from glycated hemoglobinon 01-11-2024 Average glucose Estimated from glycated hemoglobin (Bld) [Mass/Vol] 100 mg/dL [facility] Average glucose Estimated from glycated hemoglobin (Bld) [Mass/Vol] Glucose mean value [Mass/volume] in Blood Estimated from glycated hemoglobin [facility] Hematocrit Auto (Bld) [Volum e fraction]on 01-11-2024 Hematocrit (Bld) [Volume fraction] 46.5 % 42.0-54.0 [facility] Hematocrit (Bld) [Volume fraction] Hematocrit [Volume Fraction] of Blood by Automated count 42.0-54.0 [facility] Hemoglobin [Mass/volume] in Bloodon 01-11-2024 Hemoglobin (Bld) [Mass/Vol] 16.5 g/dL 14.0-18.0 [facility] Hemoglobin (Bld) [Mass/Vol] Hemoglobin [Mass/volume] in Blood 14.0-18.0 [facility] Laboratory - Chemistry and C hemistry - challengeon 01-11-2024 Albumin [Mass/Vol] 3.7 g/dL 3.4-5.0 [facility] ALP [Catalytic activity/Vol] 80 U/L 46-116 [facility] ALT [Catalytic activity/Vol] 37 U/L 16-63 [facility] AST [Catalytic activity/Vol] 22 U/L 15-37 [facility] Bilirubin [Mass/Vol] 0.9 mg/dL 0.2-1.0 [facility] Calcium [Mass/Vol] 8.8 mg/dL 8.5-10.1 [facility] Chloride [Moles/Vol] 105 mmol/L 98-107 [facility] Cholesterol [Mass/Vol] 149 mg/dL <=200 [facility] Cholesterol in HDL [Mass/Vol] 44 mg/dL 40-60 [facility] Comment on above: > or =60 mg/dl - LOW CARDIOVASCULAR RISK<40 mg/dl - HIGH CARDIOVASCULAR RISK CO2 [Moles/Vol] 25.3 mmol/L 21.0-32.0 [facility] Creatinine [Mass/Vol] 0.98 mg/dL 0.70-1.30 [facility] GFR/1.73 sq M.predicted MDRD (S/P/Bld) [Vol rate/Area] mL/min/{1.73_m2} >=60 mL/min/1.[address] [facility] Glucose [Mass/Vol] 111 mg/dL High 74-106 [facility] Potassium [Moles/Vol] 4.1 mmol/L 3.5-5.1 [facility] Protein [Mass/Vol] 6.8 g/dL 6.4-8.2 [facility] Sodium [Moles/Vol] 139 mmol/L 136-145 [facility] Triglyceride [Mass/Vol] 101 mg/dL <=150 [facility] Urea nitrogen [Mass/Vol] 13.0 mg/dL 7.0-18.0 [facility] Urea nitrogen/Creatinine [Mass ratio] 13.3 mg/mg [facility] Laboratory - Hematology and Cell countson 01-11-2024 HbA1c (Bld) [Mass fraction] 5.1 % 4.5-6.2 [facility] Comment on above: ADA RECOMMENDED LIMI T 4.0 - 6.0ADA THERAPEUTIC TARGET < 7.0ACTION SUGGESTED> 7.0 Immature granulocytes/100 WBC (Bld) 0.3 % 0.0-0.5 [facility] Leukocytes [#/volume] correc vero for nucleated erythrocytes in Blood by Automated counon 01-11-2024 WBC corrected for nucl RBC Auto (Bld) [#/Vol] 7.7 10 3/uL 4.0-11.0 [facility] WBC corrected for nucl RBC Auto (Bld) [#/Vol] Leukocytes [#/volume] corrected for nucleated erythrocytes in Blood by Automated coun 4.0-11.0 [facility] Lymphocytes Auto (Bld) [#/Vo l]on 01-11-2024 Lymphocytes (Bld) [#/Vol] 1.8 10 3/uL 1.2-3.8 [facility] Lymphocytes (Bld) [#/Vol] Lymphocytes [#/volume] in Blood by Automated count 1.2-3.8 [facility] Lymphocytes/100 WBC Auto (Bl d)on 01-11-2024 Lymphocytes/100 WBC (Bld) 23.0 % 20.5-60.0 [facility] Lymphocytes/100 WBC (Bld) Lymphocytes/100 leukocytes in Blood by Automated count 20.5-60.0 [facility] MCH Auto (RBC) [Entitic mass ]on 01-11-2024 MCH (RBC) [Entitic mass] 31.7 pg 25.9-34.0 [facility] MCH (RBC) [Entitic mass] MCH [Entitic mass] by Automated count 25.9-34.0 [facility] MCHC Auto (RBC) [Mass/Vol]on 01-11-2024 MCHC (RBC) [Mass/Vol] 35.5 g/dL High 29.9-35.2 [facility] MCHC (RBC) [Mass/Vol] MCHC [Mass/volume] by Automated count High 29.9-35.2 [facility] MCV Auto (RBC) [Entitic vol] on 01-11-2024 MCV (RBC) [Entitic vol] 89.4 fL 80.0-94.0 [facility] MCV (RBC) [Entitic vol] MCV [Entitic volume] by Automated count 80.0-94.0 [facility] Monocytes Auto (Bld) [#/Vol] on 01-11-2024 Monocytes (Bld) [#/Vol] 0.6 10 3/uL 0.3-0.8 [facility] Monocytes (Bld) [#/Vol] Automated blood monocyte count 0.3-0.8 [facility] Monocytes/100 WBC Auto (Bld) on 01-11-2024 Monocytes/100 WBC (Bld) 8.2 % 1.7-12.0 [facility] Monocytes/100 WBC (Bld) Automated monocyte % 1.7-12.0 [facility] Neutrophils Auto (Bld) [#/Vo l]on 01-11-2024 Neutrophils (Bld) [#/Vol] 5.0 10 3/uL 1.4-6.5 [facility] Neutrophils (Bld) [#/Vol] Neutrophils [#/volume] in Blood by Automated count 1.4-6.5 [facility] Neutrophils/100 WBC Auto (Bl d)on 01-11-2024 Neutrophils/100 WBC (Bld) 65.1 % 43.0-75.0 [facility] Neutrophils/100 WBC (Bld) Automated neutrophil % 43.0-75.0 [facility] No Panel Informationon 01-10 Eosinophils # (Auto) 0.2 10 3/uL 0.0-0.7 [facility] Immature Granulocyte # (Auto) 0.02 10 3/uL 0.00-0.03 [facility] Prostate Specific Antigen Screen 1.73 ng/mL <=4.00 [facility] Platelet mean volume Auto (B ld) [Entitic vol]on 01-11-2024 Platelet mean volume (Bld) [Entitic vol] 9.2 fL Low 9.5-13.5 [facility] Platelet mean volume (Bld) [Entitic vol] Platelet mean volume [Entitic volume] in Blood by Automated count Low 9.5-13.5 [facility] Platelets Auto (Bld) [#/Vol] on 01-11-2024 Platelets (Bld) [#/Vol] 208 10 3/uL 150-450 [facility] Platelets (Bld) [#/Vol] Platelets [#/volume] in Blood by Automated count 150-450 [facility] RBC Auto (Bld) [#/Vol]on RBC (Bld) [#/Vol] 5.20 10 6/uL 4.70-6.10 [facility] RBC (Bld) [#/Vol] Erythrocytes [#/volume] in Blood by Automated count 4.70-6.10 [facility] Serum or plasma albumin/glob ulin mass ratioon 01-11-2024 Albumin/Globulin [Mass ratio] 1.2 {ratio} [facility] Albumin/Globulin [Mass ratio] Serum or plasma albumin/globulin mass ratio [facility] Serum or plasma anion gap de terminationon 01-11-2024 Anion gap [Moles/Vol] 12.8 mmol/L [facility] Anion gap [Moles/Vol] Serum or plasma an ion gap determination [facility] Serum or plasma total choles terol/high density lipoprotein (HDL) cholesterol mass jessica 01-11-2024 Cholesterol.total/Chol esterol in HDL [Mass ratio] 3.4 {ratio} [facility] Comment on above: 3.3 - 4.4 LOW RISK4. 4 - 7.1 AVERAGE RISK7.1 - 11.0 MODERATE RISK>11.0 HIGH RISK Cholesterol.total/Chol esterol in HDL [Mass ratio] Serum or plasma total cholesterol/high density lipoprotein (HDL) cholesterol mass rat [facility] Comment on above: 3.3 - 4.4 LOW RISK4. 4 - 7.1 AVERAGE RISK7.1 - 11.0 MODERATE RISK>11.0 HIGH RISK Creatinine (Bld) [Mass/Vol]O rdered By: aMrk Harris on 12-18-2023 Creatinine [Mass/Vol] Whole blood creati nine measurement 0.6-1.3 [facility] Comment on above: ER/ESD physician is notified/shown all ISTAT results.Critical values may be confirmed by laboratory testing ifdeemed necessary by ER attending doctor. ISTAT XRay CREon 12-18-2023 ISTAT GFR > 60.0 Normal [facility] Comment on above: Result Comment: PERF ORMED BY: [facility] [address] [place] [address] PATHOLOGIST FOOD INSPECTOR JIANLAN SUN M.D. Performed By: #### I SCRE #### [address] MR lumbar spine wo/w conon 0 12-18-2023 MR lumbar spine wo/w con [facility] [address] [place] [address] MRI Report Signed Patient: Bruce Stanton MR#: [id number] : 1950 Acct:[id number] Age/Sex: 73 / M ADM Date: 12/18/23 Loc: MR Room: Type: [facility] Attending Dr: Mark Harris MD Copies to: Mark Harris MD Ordering Provider: Mark Harris MD Date of Service: 12/18/23 MR/MR [...] Ry Ashton M.D.12/18/2023 9:42 PM Dictation Location: [place] [address] Transcribed By: [facility] 12/18/232141 Dictated By: Ry Ashton DO 12/18/232137 Signed By: 12/18/232141 Normal [facility] No Panel InformationOrdered By: Mark Harris on 12-18-2023 Bedside Estimated GFR (eGFR) > 60.0 [facility] Whole blood creatinine measu rementOrdered By: Mark Harris on 12-18-2023 Creatinine [Mass/Vol] 1.0 mg/dL Normal 0.6-1.3 [facility] Comment on above: ER/ESD physician is notified/shown all ISTAT results.Critical values may be confirmed by laboratory testing ifdeemed necessary by ER attending doctor. Result Comment: ER/E SD physician is notified/shown all ISTAT results. Critical values may be confirmed by laboratory testing if deemed necessary by ER attending doctor. Performed By: #### I SCRE #### [facility] [address] XR knee RT 4V*on 11-10-2022 XR knee RT 4V* [facility] [employer] Other XR knee RT 4V* [facility] [employer] Other XR knee RT 4V* [address] [facility] [employer] Other XR knee RT 4V* [place] [address] No rt [employer] Other XR knee RT 4V* XRay Report [employer] Other XR knee RT 4V* Signed [employer] Other XR knee RT 4V* Patient: Bruce Stanton MR#: [id number] [employer] Other XR knee RT 4V* [id number] [employer] Other XR knee RT 4V* : 1950 Acct:[id number] [employer] Other XR knee RT 4V* Age/Sex: 72 / M ADM Date: 11/10/22 [employer] Other XR knee RT 4V* Loc: SOXD Room: Type : [facility] [employer] Other XR knee RT 4V* Attending Dr: Jesus Aiken II, MD [employer] Other XR knee RT 4V* Copies to: Jesus Aiken MD [employer] Other XR knee RT 4V* Ordering Provider: Jesus Aiken MD [employer] Other XR knee RT 4V* Date of Service: 11/10/22 [employer] Other XR knee RT 4V* XR/XR knee RT 4V*: Primary osteoarthritis of right knee [employer] Other XR knee RT 4V* RIGHT KNEE - 4 views [employer] Other XR knee RT 4V* CLINICAL HISTORY: Anterior/medial knee pain for 5 years. [employer] Other XR knee RT 4V* COMPARISON: Right kn ee 02/28/2017 [employer] Other XR knee RT 4V* FINDINGS: [employer] Other XR knee RT 4V* Moderate degenerativ e changes with medial weightbearing joint space narrowing. Chondrocalcinosis [employer] Other XR knee RT 4V* involving the latera l meniscus. No acute bony process. Bipartite patella. [employer] Other XR knee RT 4V* XR/XR knee RT 4V* [employer] Other XR knee RT 4V* IMPRESSION: [employer] Other XR knee RT 4V* MODERATE DEGENERATIV E CHANGES WITHOUT ACUTE BONY PROCESS. [employer] Other XR knee RT 4V* Impression dictated by: Tavares Cuellar Jr., D.O.11/10/2022 1:03 PM [employer] Other XR knee RT 4V* Dictation Location: [place] [address] [employer] Other XR knee RT 4V* Transcribed By: PWS 11/10/22 [facility] [employer] Other XR knee RT 4V* Dictated By: Tavares Cuellar Jr, DO 11/10/22 [facility] [employer] Other XR knee RT 4V* Signed By: [employer] Other XR knee RT 4V* 11/10/22 [facility] [employer] Other XR pelvis 1-2Von 11-10-2022 XR pelvis 1-2V XR/XR pelvis 1-2V: Primary osteoarthritis of right knee [employer] Other XR pelvis 1-2V AP PELVIS: [employer] Other XR pelvis 1-2V CLINICAL HISTORY: Anterior/medial pain for 5 years [employer] Other XR pelvis 1-2V COMPARISON: None [place] [employer] Other XR pelvis 1-2V Mild degenerative changes of the hips without acute bony process. [employer] Other XR pelvis 1-2V XR/XR pelvis 1-2V [employer] Other XR pelvis 1-2V Impression dictated by: Tavares Cuellar Jr., D.OPhyllis11/10/2022 1:04 PM [employer] Other XR pelvis 1-2V Transcribed By: PWS 11/10/22 1304 [employer] Other XR pelvis 1-2V Dictated By: Tavares Cuellar Jr, DO 11/10/22 1304 [employer] Other XR pelvis 1-2V 11/10/22 [employer] Other COVID-19 Positive/NegativeOr dered By: Mark Mendoza on 01-31-2022 SARS-CoV-2 (COVID-19) N gene HIEU+probe Ql (Resp) Negative Negative [facility] Comment on above: Testing for SARS-CoV -2 by RT-PCRThis test was developed and its performance characteristics determined by [employer] and validated at the [facility]. This test has not been FDA cleared [...] INGRID WYMAN Date: 2022-01-20 09:40 Normal [facility] CBC AUTO DIFFon 01-06-2022 BASO # 0.1 103/ul Normal 0.0-0.1 [facility] Comment on above: Performed By: #### C BC #### [facility] [address] [place] [address] Dr. Robert Feliciano Basophils/100 WBC (Bld) 0.7 % Normal 0.2-2.0 [facility] Comment on above: Performed By: #### C BC #### [facility] [address] [place] [address] [address] Robert Feliciano EO # 0.1 103/ul Normal 0.0-0.7 [facility] Comment on above: Performed By: #### C BC #### [facility] [address] [place] [address] [address] Robert Feliciano Eosinophils/100 WBC (Bld) 1.7 % Normal 0.9-7.0 [facility] Comment on above: Performed By: #### C BC #### [facility] [address] [place] [address] Dr. Robert Feliciano Erythrocyte distribution width (RBC) [Ratio] 12.2 % Normal 11.0-15.0 [facility] Comment on above: Performed By: #### C BC #### [facility] [address] [place] [address] Dr. Robert Feliciano Hematocrit (Bld) [Volume fraction] 46.8 % Normal 42.0-54.0 [facility] Comment on above: Performed By: #### C BC #### [facility] [address] [place] [address] Dr. Robert Feliciano Hemoglobin (Bld) [Mass/Vol] 16.4 g/dL Normal 14.0-18.0 [facility] Comment on above: Performed By: #### C BC #### [facility] [address] [place] [address] Dr. Robert Feliciano IG # 0.02 10e3/ul Normal 0.00-0.03 [facility] Comment on above: Performed By: #### C BC #### [facility] [address] [place] [address] Dr. Robert Feliciano IG % 0.3 % Normal 0.0-0.5 [facility] Comment on above: Performed By: #### C BC #### [facility] [address] [place] [address] Dr. Robert Feliciano LYMPH # 1.9 103/ul Normal 1.2-3.8 [facility] Comment on above: Performed By: #### C BC #### [facility] [address] [place] [address] Dr. Robert Feliciano Lymphocytes/100 WBC (Bld) 24.7 % Normal 20.5-60.0 [facility] Comment on above: Performed By: #### C BC #### [facility] [address] [place] [address] Dr. Robert Feliciano MANUAL DIFF REQ NO Normal [facility] Comment on above: Performed By: #### C BC #### [facility] [address] [place] [address] Dr. Robert Feliciano MCH (RBC) [Entitic mass] 31.6 pg Normal 25.9-34.0 [facility] Comment on above: Performed By: #### C BC #### [facility] [address] [place] [address] Dr. Robert Feliciano MCHC (RBC) [Mass/Vol] 35.0 g/dL Normal 29.9-35.2 [facility] Comment on above: Performed By: #### C BC #### [facility] [address] [place] [address] Dr. Robert Feliciano MCV (RBC) [Entitic vol] 90.2 fL Normal 80.0-94.0 [facility] Comment on above: Performed By: #### C BC #### [facility] [address] [place] [address] Dr. Robert Feliciano MONO # 0.6 103/ul Normal 0.3-0.8 [facility] Comment on above: Performed By: #### C BC #### [facility] [address] [place] [address] Dr. Robert Feliciano Monocytes/100 WBC (Bld) 7.4 % Normal 1.7-12.0 [facility] Comment on above: Performed By: #### C BC #### [facility] [address] [place] [address] Dr. Robert Feliciano NEUT # 5.0 103/ul Normal 1.4-6.5 [facility] Comment on above: Performed By: #### C BC #### [facility] [address] [place] [address] Dr. Robert Feliciano Neutrophils/100 WBC (Bld) 65.2 % Normal 43.0-75.0 [facility] Comment on above: Performed By: #### C BC #### [facility] [address] [place] [address] Dr. Robert Feliciano Platelet mean volume (Bld) [Entitic vol] 9.2 fL Critically low 9.5-13.5 [facility] Comment on above: Performed By: #### C BC #### [facility] [address] [address] [address] Robert Feliciano PLT 217 103/ul Normal 150-450 [facility] Comment on above: Performed By: #### C BC #### [facility] [address] [place] [address] [address] Robert Feliciano RBC 5.19 106/ul Normal 4.70-6.10 [facility] Comment on above: Performed By: #### C BC #### [facility] [address] [place] [address] [address] Robert Feliciano WBC 7.6 103/ul Normal 4.0-11.0 [facility] Comment on above: Performed By: #### C BC #### [facility] [address] [place] [address] Dr. Robert Feliciano LIPID PROFILEon 01-06-2022 CHOL-HDL RATIO NORM SEE BELOW Normal [facility] Comment on above: Result Comment: 3.3 - 4.4 LOW RISK 4.4 - 7.1 AVERAGE RISK 7.1 - 11.0 MODERATE RISK >11.0 HIGH RISK Performed By: #### L IPID, CMP #### [facility] [address] [place] [address] Dr. Robert Feliciano Cholesterol [Mass/Vol] 177 mg/dL Normal <=200 [facility] Comment on above: Performed By: #### L IPID, CMP #### [facility] [address] [place] [address] Dr. Robert Feliciano Cholesterol in HDL [Mass/Vol] 44 mg/dL Normal 40-60 [facility] Comment on above: Performed By: #### L IPID, CMP #### [facility] [address] [place] [address] [address] Robert Feliciano Cholesterol in LDL [Mass/Vol] 117.0 mg/dL Normal [facility] Comment on above: Performed By: #### L IPID, CMP #### [facility] [address] [place] [address] Dr. Robert Feliciano Cholesterol.total/Chol esterol in HDL [Mass ratio] 4.0 {ratio} Normal [facility] Comment on above: Performed By: #### L IPID, CMP #### [facility] [address] [place] [address] [address] Robert Feliciano HDL NORMAL > or = 60 mg/dl - LO W CARDIOVASCULAR RISK <40 mg/dl - HIGH CARDIOVASCULAR RISK Normal [facility] Comment on above: Performed By: #### L IPID, CMP #### [facility] [address] [place] [address] [address] Robert Feliciano LDL CALC NORMAL SEE BELOW Normal [facility] Comment on above: Result Comment: <100 mg/dl OPTIMAL 100 - 129 mg/dl NEAR OR ABOVE OPTIMAL 130 - 159 mg/dl BORDERLINE HIGH 160 - 189 mg/dl HIGH >190 mg/dl VERY HIGH Performed By: #### L IPID, CMP #### [facility] [address] [place] [address] [address] Robert Feliciano Triglyceride [Mass/Vol] 80 mg/dL Normal <=150 [facility] Comment on above: Performed By: #### L IPID, CMP #### [facility] [address] [place] [address] [address] Robert Feliciano VLDL CALC 16.0 mg/dL Normal [facility] Comment on above: Performed By: #### L IPID, CMP #### [facility] [address] [place] [address] [address] Robert Feliciano PROF 14(COMP METB)on 022 Albumin [Mass/Vol] 4.1 g/dL Normal 3.4-5.0 [facility] Comment on above: Performed By: #### L IPID, CMP #### [facility] [address] [place] [address] [address] Robert Feliciano Albumin/Globulin [Mass ratio] 1.3 {ratio} Normal [facility] Comment on above: Performed By: #### L IPID, CMP #### [facility] [address] [place] [address] [address] Robert Feliciano ALP [Catalytic activity/Vol] 59 U/L Normal 46-116 [facility] Comment on above: Performed By: #### L IPID, CMP #### [facility] [address] [place] [address] [address] Robert Feliciano ALT [Catalytic activity/Vol] 44 U/L Normal 16-63 [facility] Comment on above: Performed By: #### L IPID, CMP #### [facility] [address] [place] [address] [address] Robert Feliciano Anion gap [Moles/Vol] 10.3 mmol/L Normal [facility] Comment on above: Performed By: #### L IPID, CMP #### [facility] [address] [place] [address] [address] Robert Feliciano AST [Catalytic activity/Vol] 22 U/L Normal 15-37 [facility] Comment on above: Performed By: #### L IPID, CMP #### [facility] [address] [place] [address] [address] Robert Feliciano Bilirubin [Mass/Vol] 0.6 mg/dL Normal 0.2-1.0 [facility] Comment on above: Performed By: #### L IPID, CMP #### [facility] [address] [place] [address] [address] Robert Feliciano Calcium [Mass/Vol] 8.9 mg/dL Normal 8.5-10.1 [facility] Comment on above: Performed By: #### L IPID, CMP #### [facility] [address] [place] [address] Dr. Robert Feliciano Chloride [Moles/Vol] 105 mmol/L Normal 98-107 [facility] Comment on above: Performed By: #### L IPID, CMP #### [facility] [address] [place] [address] [address] Robert Feliciano CO2 [Moles/Vol] 29.0 mmol/L Normal 21.0-32.0 [facility] Comment on above: Performed By: #### L IPID, CMP #### [facility] [address] [place] [address] [address] Robert Feliciano Creatinine [Mass/Vol] 1.05 mg/dL Normal 0.70-1.30 [facility] Comment on above: Performed By: #### L IPID, CMP #### [facility] [address] [place] [address] [address] Robert Feliciano EGFR-AF CHADIAN >60 Normal >=60 [facility] Comment on above: Performed By: #### L IPID, CMP #### [facility] [address] [place] [address] [address] Robert Feliciano EGFR-NON AF CHADIAN >60 Normal >=60 [facility] Comment on above: Performed By: #### L IPID, CMP #### [facility] [address] [place] [address] [address] Robert Feliciano Globulin (S) [Mass/Vol] 3.2 g/dL Normal [facility] Comment on above: Performed By: #### L IPID, CMP #### [facility] [address] [place] [address] [address] Robert Feliciano Glucose [Mass/Vol] 112 mg/dL Critically high 74-106 [facility] Comment on above: Performed By: #### L IPID, CMP #### [facility] [address] [place] [address] [address] Robert Feliciano Potassium [Moles/Vol] 4.3 mmol/L Normal 3.5-5.1 [facility] Comment on above: Performed By: #### L IPID, CMP #### [facility] [address] [place] [address] [address] Robert Feliciano Protein [Mass/Vol] 7.3 g/dL Normal 6.4-8.2 [facility] Comment on above: Performed By: #### L IPID, CMP #### [facility] [address] [place] [address] [address] Robert Feliciano Sodium [Moles/Vol] 140 mmol/L Normal 136-145 [facility] Comment on above: Performed By: #### L IPID, CMP #### [facility] [address] [place] [address] [address] Robert Feliciano Urea nitrogen [Mass/Vol] 18.0 mg/dL Normal 7.0-18.0 [facility] Comment on above: Performed By: #### L IPID, CMP #### [facility] [address] [place], [place] [address] Dr. Robert Feliciano Urea nitrogen/Creatinine [Mass ratio] 17.1 mg/mg Normal [facility] Comment on above: Performed By: #### L IPID, CMP #### [facility] [address] [place], [place] [address] Dr. Robert Feliciano Vital Signs Date Time Vital Sign Value Performing Clinician Facility 01-23-2025 12:56-0400 Body height 182.88 cm Ze Ball DO Work Phone: [facility] 01-23-2025 12:56-0400 Body mass index (BMI) [Ratio] 33.7 kg/m2 Ze Ball DO Work Phone: [facility] 01-23-2025 12:56-0400 Body weight 113 kg Ze Ball DO Work Phone: [facility] 01-23-2025 12:56-0400 Diastolic blood pressure 75 mm[Hg] Ze Ball DO Work Phone: [facility] 01-23-2025 12:56-0400 Systolic blood pressure 132 mm[Hg] Ze Ball DO Work Phone: [facility] 01-14-2025 11:26-0400 Body height 182.88 cm Ze Ball DO Work Phone: [facility] 01-14-2025 11:26-0400 Body mass index (BMI) [Ratio] 33.9 kg/m2 Ze Ball DO Work Phone: [facility] 01-14-2025 11:26-0400 Body weight 113.56 kg Ze Ball DO Work Phone: [facility] 01-14-2025 11:26-0400 Diastolic blood pressure 75 mm[Hg] Ze Ball DO Work Phone: [facility] 01-14-2025 11:26-0400 Heart rate 76 /min Ze Ball DO Work Phone: [facility] 01-14-2025 11:26-0400 Respiratory rate 12 /min Ze Ball DO Work Phone: [facility] 01-14-2025 11:26-0400 Systolic blood pressure 132 mm[Hg] Ze Ball DO Work Phone: [facility] 10-29-2024 09:45-0400 Diastolic blood pressure 88 mm[Hg] Ze Ball DO Work Phone: [facility] 10-29-2024 09:45-0400 Heart rate 69 /min Ze Ball DO Work Phone: [facility] 10-29-2024 09:45-0400 Respiratory rate 16 /min Ze Ball DO Work Phone: [facility] 10-29-2024 09:45-0400 SaO2% (BldA) [Mass fraction] 96 % Ze Ball DO Work Phone: [facility] 10-29-2024 09:45-0400 Systolic blood pressure 147 mm[Hg] Ze Ball DO Work Phone: [facility] 10-29-2024 09:01-0400 Inhaled oxygen flow rate 3 L/min Ze Ball DO Work Phone: [facility] 10-29-2024 07:55-0400 Body height 182.88 cm Ze Ball DO Work Phone: [facility] 10-29-2024 07:55-0400 Body weight 113.39 kg Ze Ball DO Work Phone: [facility] 08-08-2024 11:43-0400 Body height 182.88 cm [facility] 08-08-2024 11:43-0400 Body mass index (BMI) [Ratio] 34.7 kg/m2 [facility] 08-08-2024 11:43-0400 Body weight 116.11 kg [facility] 08-08-2024 11:43-0400 Diastolic blood pressure 84 mm[Hg] [facility] 08-08-2024 11:43-0400 Heart rate 66 /min [facility] 08-08-2024 11:43-0400 Respiratory rate 12 /min [facility] 08-08-2024 11:43-0400 Systolic blood pressure 134 mm[Hg] [facility] 02-20-2024 10:40-0500 Diastolic blood pressure 80 mm[Hg] Ze Ball DO Work Phone: [facility] 02-20-2024 10:40-0500 Heart rate 76 /min Ze Ball DO Work Phone: [facility] 02-20-2024 10:40-0500 Respiratory rate 16 /min Ze Ball DO Work Phone: [facility] 02-20-2024 10:40-0500 SaO2% (BldA) [Mass fraction] 95 % Ze Ball DO Work Phone: [facility] 02-20-2024 10:40-0500 Systolic blood pressure 133 mm[Hg] Ze Ball DO Work Phone: [facility] 02-20-2024 10:05-0500 Inhaled oxygen flow rate 3 L/min Ze Ball DO Work Phone: [facility] 02-20-2024 09:25-0500 Body height 182.88 cm Ze Ball DO Work Phone: [facility] 02-20-2024 09:25-0500 Body weight 111.13 kg Ze Ball DO Work Phone: [facility] 01-23-2024 09:10-0400 Diastolic blood pressure 67 mm[Hg] DO Ze Ball Work Phone: [facility] 01-23-2024 09:10-0400 Heart rate 72 /min DO Ze Ball Work Phone: [facility] 01-23-2024 09:10-0400 Respiratory rate 16 /min DO Ze Ball Work Phone: [facility] 01-23-2024 09:10-0400 SaO2% (BldA) [Mass fraction] 95 % DO Ze Ball Work Phone: [facility] 01-23-2024 09:10-0400 Systolic blood pressure 118 mm[Hg] DO Ze Ball Work Phone: [facility] 01-23-2024 08:34-0400 Inhaled oxygen flow rate 3 L/min DO Ze Ball Work Phone: [facility] 01-23-2024 07:51-0400 Body height 182.88 cm DO Ze Ball Work Phone: [facility] 01-23-2024 07:51-0400 Body weight 113.39 kg DO Ze Ball Work Phone: [facility] 01-11-2024 10:36-0400 Body height 180.34 cm DO Ze Ball Work Phone: [facility] 01-11-2024 10:36-0400 Body mass index (BMI) [Ratio] 35.2 kg/m2 DO Ze Ball Work Phone: [facility] 01-11-2024 10:36-0400 Body weight 114.41 kg DO Ze Ball Work Phone: [facility] 01-11-2024 10:36-0400 Diastolic blood pressure 81 mm[Hg] DO Ze Ball Work Phone: [facility] 01-11-2024 10:36-0400 Heart rate 61 /min DO Ze Ball Work Phone: [facility] 01-11-2024 10:36-0400 Respiratory rate 12 /min DO Ze Ball Work Phone: [facility] 01-11-2024 10:36-0400 Systolic blood pressure 148 mm[Hg] DO Ze Ball Work Phone: [facility] 07-10-2023 10:40-0400 Body height 180.34 cm DO Ze Ball Work Phone: [facility] 07-10-2023 10:40-0400 Body mass index (BMI) [Ratio] 35.5 kg/m2 DO Ze Ball Work Phone: [facility] 07-10-2023 10:40-0400 Body weight 115.66 kg DO Ze Ball Work Phone: [facility] 07-10-2023 10:40-0400 Diastolic blood pressure 88 mm[Hg] DO Ze Ball Work Phone: [facility] 07-10-2023 10:40-0400 Heart rate 77 /min DO Ze Ball Work Phone: [facility] 07-10-2023 10:40-0400 Respiratory rate 16 /min DO Ze Ball Work Phone: [facility] 07-10-2023 10:40-0400 Systolic blood pressure 135 mm[Hg] DO Ze Ball Work Phone: [facility] 04-18-2023 10:48-0500 Diastolic blood pressure 81 mm[Hg] DO Ze Ball Work Phone: [facility] 04-18-2023 10:48-0500 Heart rate 72 /min DO Ze Ball Work Phone: [facility] 04-18-2023 10:48-0500 Respiratory rate 18 /min DO Ze Ball Work Phone: [facility] 04-18-2023 10:48-0500 SaO2% (BldA) [Mass fraction] 96 % DO Ze Ball Work Phone: [facility] 04-18-2023 10:48-0500 Systolic blood pressure 137 mm[Hg] DO Ze Ball Work Phone: [facility] 04-18-2023 10:09-0500 Inhaled oxygen flow rate 3 L/min DO Ze Ball Work Phone: [facility] 04-18-2023 09:15-0500 Body height 175.26 cm DO Ze Ball Work Phone: [facility] 04-18-2023 09:15-0500 Body weight 114.3 kg DO Ze Ball Work Phone: [facility] 03-21-2023 09:28-0500 Diastolic blood pressure 85 mm[Hg] DO Ze Ball Work Phone: [facility] 03-21-2023 09:28-0500 Heart rate 65 /min DO Ze Ball Work Phone: [facility] 03-21-2023 09:28-0500 Respiratory rate 16 /min DO Ze Ball Work Phone: [facility] 03-21-2023 09:28-0500 SaO2% (BldA) [Mass fraction] 94 % DO Ze Ball Work Phone: [facility] 03-21-2023 09:28-0500 Systolic blood pressure 142 mm[Hg] DO Ze Ball Work Phone: [facility] 03-21-2023 08:48-0500 Inhaled oxygen flow rate 3 L/min DO Ze Ball Work Phone: [facility] 03-21-2023 08:01-0500 Body height 181.61 cm DO Ze Ball Work Phone: [facility] 03-21-2023 08:01-0500 Body weight 114.3 kg DO Ze Ball Work Phone: [facility] 03-07-2023 15:00-0500 Body height 177.8 cm Mark Harris Other [employer] Other 02-28-2023 10:36-0500 Diastolic blood pressure 79 mm[Hg] DO Ze Ball Work Phone: [facility] 02-28-2023 10:36-0500 Heart rate 75 /min DO Ze Ball Work Phone: [facility] 02-28-2023 10:36-0500 Respiratory rate 18 /min DO Ze Ball Work Phone: [facility] 02-28-2023 10:36-0500 SaO2% (BldA) [Mass fraction] 96 % DO Ze Ball Work Phone: [facility] 02-28-2023 10:36-0500 Systolic blood pressure 140 mm[Hg] DO Ze Ball Work Phone: [facility] 02-28-2023 10:00-0500 Inhaled oxygen flow rate 3 L/min DO Ze Ball Work Phone: [facility] 02-28-2023 09:19-0500 Body height 180.34 cm DO Ze Ball Work Phone: [facility] 02-28-2023 09:19-0500 Body weight 115.66 kg DO Ze Ball Work Phone: [facility] 01-09-2023 10:30-0400 Body height 177.8 cm Ze Ball Other [employer] Other 01-09-2023 10:30-0400 Body mass index (BMI) [Ratio] 37.33 kg/m2 Ze Ball Other [employer] Other 01-09-2023 10:30-0400 Body weight 118.03 kg Ze Ball Other [employer] Other 01-09-2023 10:30-0400 Diastolic blood pressure 83 mm[Hg] Ze Ball Other [employer] Other 01-09-2023 10:30-0400 Respiratory rate 12 /min Ze Ball Other [employer] Other 01-09-2023 10:30-0400 Systolic blood pressure 139 mm[Hg] Ze Ball Other [employer] Other 11-10-2022 11:30-0400 Body height 177.8 cm Jesus Aiken II Other [employer] Other 11-10-2022 11:30-0400 Body mass index (BMI) [Ratio] 35.15 kg/m2 Jesus Grigsbyle II Other [employer] Other 11-10-2022 11:30-0400 Body weight 111.13 kg Jesus Grigsbyle II Other [employer] Other 03-14-2022 13:15-0500 Body height Mark Olexa Other [employer] Other 03-14-2022 13:15-0500 Body mass index (BMI) [Ratio] 37.73 kg/m2 Mark Olexa Other [employer] Other 03-14-2022 13:15-0500 Body weight 119.3 kg Mark Olexa Other [employer] Other 02-02-2022 15:10-0400 Diastolic blood pressure 86 mm[Hg] DO Ze Ball Work Phone: [facility] 02-02-2022 15:10-0400 Heart rate 80 /min DO Ze Ball Work Phone: [facility] 02-02-2022 15:10-0400 Respiratory rate 16 /min DO Ze Ball Work Phone: [facility] 02-02-2022 15:10-0400 SaO2% (BldA) [Mass fraction] 95 % DO Ze Ball Work Phone: [facility] 02-02-2022 15:10-0400 Systolic blood pressure 138 mm[Hg] DO Ze Ball Work Phone: [facility] 02-02-2022 13:34-0400 Body temperature 98 [degF] DO Ze Ball Work Phone: [facility] 02-02-2022 13:34-0400 Inhaled oxygen flow rate 4 L/min DO Ze Ball Work Phone: [facility] 02-02-2022 10:13-0400 Body mass index (BMI) [Ratio] 35.9 kg/m2 DO Ze Ball Work Phone: [facility] 02-02-2022 09:58-0400 Body height 182.88 cm DO Ze Ball Work Phone: [facility] 02-02-2022 09:58-0400 Body weight 120 kg DO Ze Ball Work Phone: [facility] 01-25-2022 11:30-0400 Body height Mark Olexa Other [employer] Other 01-25-2022 11:30-0400 Body mass index (BMI) [Ratio] 38.16 kg/m2 Mark Olexa Other [employer] Other 01-25-2022 11:30-0400 Body weight 120.66 kg Mark Olexa Other [employer] [facility] [employer] Other Encounters Encounter Date Encounter Type Care Provider Facility Start: 01-23-2025 End: 01-23-2025 ambulatory Ze Ball DO Work Phone: [facility] Work Phone: Start: 01-23-2025 End: 01-23-2025 Patient encounter procedure Jesus Omalley MD -[facility] Work Phone: Start: 01-21-2025 End: 01-21-2025 ambulatory MALVIN Michaud Facility:[facility] Start: 01-21-2025 End: 01-21-2025 Patient encounter procedure Brenda Michaud [facility] Start: 01-20-2025 End: 01-20-2025 ambulatory Ze Ball DO Work Phone: [facility] Work Phone: Start: 01-20-2025 End: 01-20-2025 Patient encounter procedure Mark Dumont MD -[facility] Work Phone: Start: 01-15-2025 ambulatory MALVIN Michaud Facility :[facility] Start: 01-14-2025 End: 01-14-2025 ambulatory Ze Ball DO Work Phone: [facility] Work Phone: Start: 01-14-2025 End: 01-14-2025 Patient encounter procedure Ze Ball DO -[facility] Work Phone: Start: 10-29-2024 End: 10-29-2024 ambulatory Mark Harris Facility:[facility] Start: 10-29-2024 Non-patient / Non-visit Mark Dumont MD -[facility] Work Phone: Start: 10-14-2024 End: 10-14-2024 ambulatory Ze Ball DO Work Phone: [facility] Work Phone: Start: 10-14-2024 End: 10-14-2024 Patient encounter procedure Mark Dumont MD -[facility] Work Phone: Start: 08-08-2024 End: 08-08-2024 ambulatory [facility] Work Phone: Start: 08-08-2024 End: 08-08-2024 Patient encounter procedure [facility] Work Phone: Start: 02-20-2024 Non-patient / Non-visit Benjam in Ball DO Work Phone: [facility] Work Phone: Start: 02-20-2024 End: 02-20-2024 Admission to same day surgery center Ze Ball DO Work Phone: [facility] Work Phone: Start: 02-20-2024 End: 02-20-2024 ambulatory Ze Ball DO Work Phone: [facility] Work Phone: Start: 02-07-2024 End: 02-07-2024 ambulatory DO Ze Ball Work Phone: [facility] Work Phone: Start: 02-07-2024 End: 02-07-2024 Patient encounter procedure DO Ze Ball Work Phone: [facility] Work Phone: Start: 01-23-2024 Non-patient / Non-visit DO Eduardo darrel Ball Work Phone: [facility] Work Phone: Start: 01-23-2024 End: 01-23-2024 Admission to same day surgery center DO Ze Ball Work Phone: [facility] Work Phone: Start: 01-23-2024 End: 01-23-2024 ambulatory DO Ze Ball Work Phone: [facility] Work Phone: Start: 01-11-2024 End: 01-11-2024 ambulatory DO Ze Ball Work Phone: [facility] Work Phone: Start: 01-11-2024 End: 01-11-2024 Patient encounter procedure DO Ze Ball Work Phone: [facility] Work Phone: Start: 01-10-2024 End: 01-10-2024 ambulatory DO Ze Ball Work Phone: [facility] Work Phone: Start: 01-10-2024 End: 01-10-2024 Patient encounter procedure DO Ze Ball Work Phone: [facility] Work Phone: Start: 01-09-2024 Patient encounter procedure DO Ze Ball Work Phone: [facility] Start: 12-18-2023 End: 12-18-2023 Patient encounter procedure DO Ze Ball Work Phone: [facility] [place] Work Phone: Start: 12-18-2023 End: 12-18-2023 ambulatory DO Ze Ball Work Phone: [facility] Work Phone: Start: 11-23-2023 End: 11-23-2023 ambulatory [facility] Work Phone: Start: 11-23-2023 End: 11-23-2023 Patient encounter procedure [facility] Work Phone: Start: 07-10-2023 End: 07-10-2023 ambulatory DO Ze Ball Work Phone: [facility] Work Phone: Start: 07-10-2023 End: 07-10-2023 Patient encounter procedure DO Ze Ball Work Phone: [facility] Work Phone: Start: 05-22-2023 End: 05-22-2023 ambulatory Jesus Aiken II Other [employer] Other Start: 05-22-2023 Telephone encounter Ze Ball [facility] Start: 05-16-2023 Office outpatient vi sit 15 minutes Jesus Oneida II [facility] Start: 05-16-2023 End: 05-16-2023 ambulatory DO Ze Ball Work Phone: [employer] Other Start: 05-16-2023 End: 05-16-2023 Patient encounter procedure DO Ze Ball Work Phone: [facility] Start: 05-04-2023 End: 05-04-2023 ambulatory Mark Harris Other [employer] Other Start: 05-04-2023 Office outpatient vi sit 15 minutes Mark Ellismelissa [facility] [place] Start: 04-18-2023 (Procedure) Jose Harris [facility] Start: 04-18-2023 End: 04-18-2023 Admission to same day surgery center DO Ze Ball Work Phone: [facility] Work Phone: Start: 04-18-2023 End: 04-18-2023 ambulatory DO Ze Ball Work Phone: [facility] Work Phone: Start: 03-29-2023 End: 03-29-2023 ambulatory Mark Harris Other [employer] Other Start: 03-29-2023 Office outpatient vi sit 25 minutes Mark Harris [facility] [place] Start: 03-29-2023 End: 03-29-2023 Patient encounter procedure DO Ze Ball Work Phone: [facility] Work Phone: Start: 03-21-2023 (Procedure) Jose Harris [facility] Start: 03-21-2023 End: 03-21-2023 Admission to same day surgery center DO Ze Ball Work Phone: [facility] Work Phone: Start: 03-21-2023 End: 03-21-2023 ambulatory DO Ze Ball Work Phone: [facility] Work Phone: Start: 03-07-2023 End: 03-07-2023 ambulatory Mark Harris Other [employer] Other Start: 03-07-2023 Office outpatient vi sit 25 minutes Mark Harris [facility] [place] Start: 03-07-2023 End: 03-07-2023 Patient encounter procedure DO Ze Howard Work Phone: [facility] Work Phone: Start: 02-28-2023 (Procedure) Short Mark Harris [facility] Start: 02-28-2023 End: 02-28-2023 ambulatory Mark Harris Other [employer] Other Start: 02-28-2023 End: 02-28-2023 Admission to same day surgery center DO Ze Howard Work Phone: [facility] Work Phone: Start: 02-23-2023 End: 02-23-2023 Patient encounter procedure DO Ze Howard Work Phone: [facility] Work Phone: Start: 02-15-2023 End: 02-15-2023 ambulatory Jesus Oneida II Other [employer] Other Start: 02-15-2023 Office outpatient vi sit 25 minutes Jesus Oneida II [facility] Start: 01-10-2023 End: 01-10-2023 ambulatory Ze Howard Other [employer] Other Start: 01-10-2023 Telephone encounter Ze Howard [facility] Start: 01-09-2023 End: 01-09-2023 ambulatory Ze Howard Other [employer] Other Start: 01-09-2023 Patient encounter procedure Ze Howard [facility] Start: 12-14-2022 End: 12-14-2022 ambulatory Ze Howard Other [employer] Other Start: 12-14-2022 Telephone encounter Ze Howard [facility] Start: 11-14-2022 End: 11-14-2022 ambulatory Jesus Attila II Other [employer] Other Start: 11-14-2022 Telephone encounter Jesus Attila II [facility] Start: 11-10-2022 Office outpatient ne w 45 minutes Jesus Oneida II [facility] Start: 11-10-2022 End: 11-10-2022 ambulatory DO Ze Ball Work Phone: [facility] Work Phone: Start: 11-10-2022 End: 11-10-2022 Patient encounter procedure DO Ze Ball Work Phone: [facility] Start: 08-04-2022 End: 08-04-2022 ambulatory Ze Ball Other [employer] Other Start: 08-04-2022 Telephone encounter Ze [facility] Start: 08-01-2022 End: 08-01-2022 ambulatory Mark Olexa Other [employer] Other Start: 08-01-2022 Office outpatient vi sit 15 minutes Mark Olexa [facility] Start: 06-06-2022 End: 06-06-2022 Discharged Recurring DO Ze Ball Work Phone: [facility] [place] Start: 06-06-2022 End: 06-06-2022 ambulatory DO Ze Ball Work Phone: [employer] Other Start: 06-06-2022 Office outpatient vi sit 15 minutes Mark Olexa [facility] Start: 05-16-2022 End: 05-16-2022 ambulatory Mary Jo Kmi Other [employer] Other Start: 05-16-2022 Office outpatient vi sit 15 minutes Mary Jo Kim [facility] Start: 03-14-2022 End: 03-14-2022 ambulatory Mark Olexa Other [employer] Other Start: 03-14-2022 Postop follow up vis it related to original px Mark Olexa [facility] Start: 02-14-2022 End: 02-14-2022 ambulatory Mark Olexa Other [employer] Other Start: 02-14-2022 Postop follow up vis it related to original px Mark Olexa [facility] Start: 02-02-2022 End: 02-02-2022 Admission to same day surgery center DO Ze Ball Work Phone: [facility] [place] Start: 02-02-2022 End: 02-02-2022 ambulatory DO Ze Ball Work Phone: [facility] Work Phone: Start: 02-01-2022 End: 02-01-2022 ambulatory Mark Olexa Other [employer] Other Start: 02-01-2022 Telephone encounter Mark Fuentesxa [facility] Start: 01-31-2022 End: 01-31-2022 ambulatory DO Ze Ball Work Phone: [facility] Work Phone: Start: 01-31-2022 End: 01-31-2022 Patient encounter procedure DO Ze Ball Work Phone: [facility] Start: 01-26-2022 End: 01-26-2022 ambulatory DO Ze Ball Work Phone: [facility] Work Phone: Start: 01-26-2022 End: 01-26-2022 Patient encounter procedure DO Ze Ball Work Phone: [facility]-Pre-Surgical Testing Start: 01-25-2022 End: 01-25-2022 Patient encounter procedure DO Ze Ball Work Phone: [facility]Covid Vaccine Off Site Start: 01-25-2022 ([facility] C Vac) [facility] Co vid Vaccine Emilee Schwab [facility] Start: 01-25-2022 End: 01-25-2022 ambulatory DO Ze Ball Work Phone: [employer] Other Start: 01-25-2022 Office outpatient ne w 45 minutes [facility] Start: 01-20-2022 End: 01-21-[address] ZE HOWARD Facility:[facility] Start: 01-06-2022 Adult health examination Jesus Aiken II Other [employer] Other Start: 01-06-2022 End: 01-07-[address] ZE HOWARD Facility:[facility] Start: 12-24-2021 End: 01-11-[address] MICHELLE CARRASQUILLO Facility:[facility] Start: 12-16-2021 End: 12-17-[address] MICHELLE CARRASQUILLO Facility:[facility] Procedures Date Procedure Procedure Detail Performing Clinician Start: 10-14-2024 X-ray of right knee, two views Ze Ball DO Work Phone: Start: 02-20-2024 Radiofrequency destr uction of peripheral nerve [facility] [employer] [facility] DO Work Phone: Start: 01-23-2024 Injection of spinal epidural space DO Ze Ball Work Phone: Start: 12-18-2023 MRI of lumbar spine with contrast DO Ze Ball Work Phone: Start: 05-16-2023 X-ray of right knee DO Ze Ball Work Phone: Start: 04-18-2023 Local anesthetic ner ve block in lower limb DO Ze Ball Work Phone: Start: 03-21-2023 Local anesthetic ner ve block in lower limb DO Ze Ball Work Phone: Start: 02-28-2023 Local anesthetic ner ve block in lower limb DO Ze Ball Work Phone: Start: 11-10-2022 X-ray of right knee DO Ze Ball Work Phone: Start: 02-02-2022 Procedure on shoulder joint DO Ze Ball Work Phone: Start: 01-06-[address] CALDERON [place] Comment on above: Performed By: #### P [facility] #### [facility] [address] [address] [address] Robert Feliciano Start: 09-18-2017 Screening for malign ant neoplasm of prostate Jesus Aiken II Other Start: 06-12-2016 Laboratory test resu lt abnormal Jesus Aiken II Other Depression screening Jesus Aiken II Other General examination of patient Jesus Aiken II Other Screening for malign ant neoplasm of prostate Jesus Aiken II Other Plan of Treatment Date Care Activity Detail Author Start: 10-29-2024 [facility] Start: 10-14-2024 X-ray of right knee, two views XR knee RT 2V [facility] Start: 10-14-2024 XR Knee - right [address] [facility] Start: 02-20-2024 [facility] Start: 01-23-2024 [facility] Start: 04-18-2023 [facility] Start: 03-21-2023 [facility] Start: 02-28-2023 [facility] Start: 02-02-2022 [facility] Start: 02-02-2022 [facility] Comprehensive metabo lic 1999 panel - Serum or Plasma [facility] Comprehensive metabo lic 1999 panel - Serum or Plasma [facility] MR Lumbar spine WO a nd W contrast IV [facility] Patient Education [facility] Work Phone: Patient referral [facility] Work Phone: [facility] Immunizations Immunization Date Immunization Notes Care Provider Fa cililakeisha 01-14-2025 influenza, high dose seasonal, preservative-free Ze Howard DO Work Phone: [facility] 03-09-2024 COVID-19 (PFIZER) 12Y and older Ze Ball DO Work Phone: [facility] 01-11-2024 influenza, high dose seasonal, preservative-free DO Ze Ball Work Phone: [facility] 01-09-2023 influenza virus vaccine, unspecified formulation DO Ze Ball Work Phone: [facility] 01-09-2023 influenza, high dose seasonal, preservative-free Ze Ball Other [employer] Other 01-25-2022 COVID-19 Moderna (BIvalent) Mark Fuentesxa Other [facility] 01-06-2022 Influenza vaccine, quadrivalent, adjuvanted Ze Ball DO Work Phone: [facility] 01-06-2022 influenza virus vaccine, split virus (incl. purified surface antigen) Jesus Aiken II Other [employer] [facility] [employer] Other 01-06-2022 influenza virus vaccine, unspecified formulation DO Ze Ball Work Phone: [facility] 02-05-2021 Influenza vaccine, quadrivalent, adjuvanted Ze Ball DO Work Phone: [facility] 02-04-2021 COVID-19 mRNA-1273 (Moderna) DO Ze Ball Work Phone: [facility] 01-04-2021 pneumococcal polysaccharide vaccine, 23 valent Jesus Aiken II Other [facility] 07-10-2020 COVID-19 mRNA-1273 (Moderna) DO Ze Ball Work Phone: [facility] 06-12-2020 COVID-19 mRNA-1273 (Moderna) DO Ze Ball Work Phone: [facility] 01-03-2020 influenza virus vaccine, split virus (incl. purified surface antigen) Jesus Aiken II Other [employer] Other 01-03-2020 influenza virus vaccine, unspecified formulation DO Ze Ball Work Phone: [facility] 12-20-2018 pneumococcal polysaccharide vaccine, 23 valent Ze Ball DO Work Phone: [facility] 12-20-2018 Seasonal trivalent influenza vaccine, adjuvanted, preservative free Ze Ball DO Work Phone: [facility] 01-22-2018 influenza virus vaccine, split virus (incl. purified surface antigen) Jesus Aiken II Other [facility] [employer] Other 01-22-2018 influenza virus vaccine, unspecified formulation DO Ze Ball Work Phone: [facility] 01-22-2018 Seasonal trivalent influenza vaccine, adjuvanted, preservative free Ze Ball DO Work Phone: [facility] 01-17-2018 influenza virus vaccine, split virus (incl. purified surface antigen) Jesus Aiken II Other [facility] [employer] Other 01-17-2018 influenza virus vaccine, unspecified formulation DO Ze Ball Work Phone: [facility] 09-18-2017 pneumococcal conjuga te vaccine, 13 valent Jesus Aiken II Other [facility] 09-18-2017 pneumococcal Conjuga te, unspecified formulation; Translations: [Need for prophylactic vaccination against Streptococcus pneumoniae (pneumococcus)] Jesus Aiken II Other [facility] [employer] Other 01-30-2017 diphtheria, tetanus toxoids and acellular pertussis vaccine, unspecified formulation Jesus Grigsbyle II Other [facility] 01-30-2017 Influenza, injectabl e, Madin [place] Canine Kidney, preservative free, quadrivalent Ze Ball DO Work Phone: [facility] 04-29-2016 zoster vaccine, live Benjami n Ball DO Work Phone: [facility] Payers Date Payer Category Payer Medicare [id number] 2025 Private Health Insurance [id number] 2023 Self-pay [id number] 2023 Unknown [id number] 2014 Unknown [id number] 1959 Medicare [id number] 2.1 [id number] 1959 Unknown [id number] 1952 Unknown [id number] 1952 Unknown [id number] 1952 Unknown [id number] 1952 Unknown [id number] 1952 Unknown [id number] 1952 Unknown [id number] Unknown [place] [employer]/BS [id number] Unknown [id number] Unknown [id number] Unknown [id number] Unknown [id number] Unknown [id number] Social History Date Type Detail Facility Unknown if ever smoked [employer] Other Sex Assigned At [facility] Start: 1950 Sex Assigned At Male [facility] Start: 01-26-2022 End: 10-29-2024 Tobacco smoking status NHIS Never smoked tobacco (finding) [facility] Start: 08-28-2014 End: 02-20-2024 Sex Male (finding) [facility] Sexual Orientation [facility] Medical Equipment Procedure Code Equipment Code Equipment Origin al Text Equipment Identifier Dates Arthroscopy, shoulder Tendon/ligament bone anchor, non-bioabsorbable [id number] [facility] Start: 02-02-2022 Arthroscopy, shoulder Tendon/ligament bone anchor, bioabsorbable [id number] [facility] Start: 02-02-2022 Goals Date Patient Goal Desired Activity /State Clinical Notes 12-16-2021 to 01-14-2025 Note Date & Type Note Facility 01-14-2025 Evaluation note Diagnosis Onset Date Resolution Hypercholesteremia acute 2024 11:18am Hypertension acute January 14, 2025 11:18am IFG (impaired fasting glucose) acute January 14 11:18am Lumbar spondylosis acute 2024 11:18am Medicare annual wellness visit, subsequent acute January 14 11:18am Obesity acute January 14 11:18am Primary osteoarthritis of right knee acute January 14 11:18am Screening PSA (prostate specific antigen) acute January 14 11:18am Chronic pain acute January 10:05am Other spondylosis with radiculopathy, lumbar region acute January 20 10:05am Primary osteoarthritis of right knee acute January 20 10:05am [facility] Work Phone: 1([phone]) 153-870605-01-2025 Evaluation note* Diagnosis Onset Date Resolution Status Admit Date Contusion of left heel acute 2024 11:28am [...] Other spondylosis with radiculopathy, lumbar region acute Oct 9:38am Primary osteoarthritis of ri ght knee acute October 14, 2024 9:38am [facility] Work Phone: 1([phone]) 854-833111-12-2024 [place] [address] Pain Management Procedure Note Signed Patient: Bruce Stanton MR#: [id number] : 1950 Acct:[id number] Age/Sex: 73 / M Adm Date: 4 Loc: Room: Type: [facility] Attending Dr: Mark Harris MD Copies to: [...] Sedation start time: 954 Sedation end time: 1008 CLINICAL NOTE: The patient has a history [...] or concerns. Documented By: Mark Harris MD 02/20/24 0955 Signed By: 02/20/[address] [facility]10[facility]* Diagnosis Onset Date Resolution Status Admit Date Chronic pain acute January 10, 2024 8:34am Other spondylosis with radiculopathy, lumbar region acute Jan 8:34am Primary osteoarthritis of ri ght knee acute January 09 8:34am Hypercholesteremia acute Janobe r 2023 10:31am Hypertension acute January 11, 2024 10:31am IFG (impaired fasting glucose) acute January 11, 2024 10:31am Lumbar spondylosis acute 2023 10:31am Medicare annual wellness vis it, subsequent acute January 10 10:31am Obesity acute January 10, 2 024 10:31am Primary osteoarthritis of ri ght knee acute January 10 10:31am Screening PSA (prostate spec ific antigen) acute January 10 10:31am Chronic pain acute January 9:37am Other spondylosis with radiculopathy, lumbar region acute Jan 9:37am Primary osteoarthritis of ri ght knee acute February 06 9:37am [facility] Work Phone: 1([phone]) 364-913002-12-2024 Evaluation note* Encounter Date Diagnosis Assessment Notes Treatment Notes Treatment Clinical Notes May, Benign prostatic hyperplasia with lower urinary tract symptoms (ICD-10 - N40.1) [employer] Other 02-12-2024 Evaluation note* Encounter Date Diagnosis Assessment Notes Treatment Notes Treatment Clinical Notes May, Primary osteoarthritis of right knee (ICD-10 - M17.11) [employer] Other 02-06-2024 Evaluation note* Encounter Date Diagnosis [...] an ultrasound to further characterize this lump. [employer] Other 01-25-2024 Evaluation note* Encounter Date Diagnosis [...] note writ ten by Ace Ritter MA, Camp Assistant. Edited and approved by Dr. Mark Harris MD. This documentation is being amended on 05/08/23 due to an internal data corruption event that occurred on 05/04/23. This data corruption event was NOT the result of any breach, fraud, or malicious third republican actors and no personal patient information was compromised. [employer] Other 01-09-2024 [facility]* Encounter Date Diagnosis Assessment Notes [...] note writ ten by Ace Ritter MA, Camp Assistant. Edited and approved by Dr. Mark Harris MD. [employer] Other 11-28-2023 Evaluation note* Encounter Date Diagnosis [...] note writ ten by Ace Ritter MA, Camp Assistant. Edited and approved by Dr. Mark Harris MD. [employer] Other 11-08-2023 Evaluation note* Encounter Date Diagnosis [...] 3 months after his radiofrequency nerve ablation [employer] Other 10-02-2023 Evaluation note* Encounter Date Diagnosis [...] (ICD-10 - Z12.5) Yearly ARLYN and PSA [employer] Other 08-03-2023 Evaluation note* Encounter Date Diagnosis [...] injection well. 6. Follow up 3 months [employer] Other 04-27-2023 Evaluation note* Encounter Date Diagnosis Assessment Notes Treatment Notes Treatment Clinical Notes Jul, Eczema, unspecified type (ICD-10 - L30.9) [employer] Other 04-24-2023 Evaluation note* Encounter Date Diagnosis [...] Other specified postprocedural states (ICD-10 - Z98.890) [employer] Other 02-27-2023 Evaluation note* Encounter Date Diagnosis [...] Other specified postprocedural states (ICD-10 - Z98.890) [employer] Other 02-06-2023 Evaluation note* Encounter Date Diagnosis [...] Other specified postprocedural states (ICD-10 - Z98.890) [employer] Other 12-05-2022 Evaluation note* Encounter Date Diagnosis [...] understanding and is agreeable to treatment plan. [employer] Other 11-07-2022 Evaluation note* Encounter Date Diagnosis [...] of ice and heat for pain relief. [employer] Other 10-25-2022 Evaluation note* Encounter Date Diagnosis Assessment Notes Treatment Notes Treatment Clinical Notes Jan, Other specified postprocedural states (ICD-10 - Z98.890) [employer] Other 10-18-2022 Evaluation note* Encounter Date Diagnosis [...] of infection, hardware pullout, cuff repair failure, penitentiary pain and stiffness are well known problems that can require repeat surgeries. Patient is fully aware that this shoulder may never be the same. We discussed that our team will do everything we can to help achieve the best outcome. 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 Patient pre-vaccination form answers reviewed. Patient denies current illness or allergic reaction to any component of a COVD-19 vaccine. Patient provided with copy of current EUA. [employer] Other 09-08-2022 NotePROCEDURE: XR SHOULDER LT 2V [...] Electronically authenticated by: MARGARITA FRANCIS Date: 2021-12-16 14:57[facility] Future App[facility]ments Appointment Date:02/11/2025 10:00:00 AM Scheduled Provider: Location:[facility] Services Appointment Type:Surgery FT [facility] Evaluation noteNo assessment information available [facility] Work Phone: evaluation noteNo InformationNort [employer] Other Evalubdubv note* Diagnosis Onset Date Resolution Status Hypercholesteremia acute Hypertension acute Lumbar spondylosis acute Primary osteoarthritis of right knee acute [facility] Work Phone: Evaluation note* Diagnosis Onset Date Resolution Status Chronic pain acute Other spondylosis with radiculopathy, lumbar region acute Primary osteoarthritis of right knee acute [facility] Work Phone: evaluation note* Diagnosis Onset Date Resolution Status Chronic pain acute Other spondylosis with radiculopathy, lumbar region acute Primary osteoarthritis of right knee acute Chronic pain acute Other spondylosis with radiculopathy, lumbar region acute Primary osteoarthritis of right knee acute [facility] Work Phone: Evaluation note* Diagnosis [...] acute Screening PSA (prostate specific antigen) acute [facility] Work Phone: Evaluation note* Diagnosis [...] acute Primary osteoarthritis of right knee acute [facility] Work Phone: Evaluation note* Diagnosis Onset Date Resolution Status Admit Date Hypercholesteremia acute August 11:28am Hypertension acute August 08 11:28am IFG (impaired fasting glucose) acute August 08, 2024 11:28am Lumbar spondylosis acute August 11:28am Obesity acute August 08, 2024 11:28am Primary osteoarthritis of ri ght knee acute August 08, 2024 11:28am Screening for colon cancer noneactiv e August 08, 2024 11:28am [facility] Work Phone: Evaluation note* Diagnosis Onset Date Resolution Status Admit Date Hypercholesteremia acute Octobe r 2024 11:18am Hypertension acute January 14, 2025 11:18am IFG (impaired fasting glucose) acute January 14, 2025 11:18am Lumbar spondylosis acute Octobe r 2024 11:18am Medicare annual wellness vis it, subsequent acute January 14 11:18am Obesity acute January 14, 2 025 11:18am Primary osteoarthritis of ri ght knee acute January 14 11:18am Screening PSA (prostate spec ific antigen) acute January 14 11:18am [facility] Work Phone: History general Narrative - Reported* Type Description Date 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 Medical History DJD Left knee Medical History DVT Medical History HTN 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 Surgical History knee replacement-left Surgical History cervical spine bone graft Surgical History lumbar surgery 1999' Hospitalization History see surgeries [employer] Other History general Narrative - Reported* Type Description Date 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 Medical History DJD Left knee Medical History DVT Medical History HTN 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 Surgical History knee replacement-left Surgical History cervical spine bone graft Surgical History lumbar surgery 1999's Surgical History left shoulder scope w/RCR Hospitalization History see surgeries [employer] Other History general Narrative - Reported* Type Description Date 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 2. Call [phone] for further questions.[facility] Work Phone: Hospital Discharge instructions No data available for this section [facility] Progress note No data available for this section [facility] Reason for referral (narrative)No reason for referral information available[facility] Work Phone: Advance Directives No [...] Pain Chief Complaint Knee Pain Knee Pain [address] Aiken Rt Knee Pain Knee Pain F/U Right Genicular Nerve Block Knee Pain F/U Right Genicular Nerve Block 92902 Chief Complaint 19955 m17.11 6 month Reason for Visit Hypercholesteremia Hypertension Lumbar spondylosis Primary osteoarthritis of right knee Chief Complaint 6 MONTHS Reason for Visit Chronic pain Other spondylosis with radiculopathy, lumbar region Primary osteoarthritis of right knee Chief Complaint 6 MONTHS M47.26 Reason for Visit Chronic pain Other spondylosis with radiculopathy, lumbar region Primary osteoarthritis of right knee Chief Complaint 6 MONTHS M47.26 [facility] Reason for Visit Chronic pain Other spondylosis [...] of right knee Chief Complaint Admit Date M47.26 December 18, 2023 7:28pm [facility] January 10, 2024 8: 34am Medicare Wellness January 11, 2024 10 :31am Back Pain January 23, 2024 7 :33am Back Pain January 23, 2024 8 :31am F/U RT LUMBAR TRANSFORAMINAL EPI February 07, 2024 9:37am Knee Pain February 20, 2024 9:00am Knee Pain February 20, 2024 9:55am Reason for Visit Admit Date Chronic pain January 10, 2024 8: 34am Other spondylosis with radiculopathy, vijaya mbar region January 10, 2024 8:34am Primary osteoarthritis [...] 2024 9 :37am Other spondylosis with radiculopathy, vijaya mbar region February 07, 2024 9:37am Primary osteoarthritis [...] 9:38a m Other spondylosis with radiculopathy, vijaya ar region October 14, 2024 9:38am Primary osteoarthritis of right knee Oct 9:38am Chief Complaint Admit Date 6 month f/u August 08, 2024 11:28a m RECHECK, DISCUSS INJECTIONS October 14 9:38am M17.11 - Unilateral primary osteoarthrit is, right October 14, 2024 10:10am Knee Pain October 29, 2024 7:42 am Chief Complaint Admit Date Knee Pain October 29, 2024 7:42 am Wellness January 14, 2025 11 :18am Reason for Visit Admit Date Hypercholesteremia January 14, 2025 11 :18am Hypertension January 14, 2025 11 :18am IFG (impaired fasting glucose) January 142024 11:18am Lumbar spondylosis January 14, 2025 11 :18am Medicare annual wellness visit, subseque nt January 14, 2025 11:18am Obesity January 14, 2025 11 :18am Primary osteoarthritis of right knee Oct gilson2024 11:18am Screening PSA (prostate specific antigen ) January 14, 2025 11:18am Chief Complaint Admit Date Knee Pain October 29, 2024 7:42 am Wellness January 14, 2025 11 :18am F/U 3 MONTHS AFTER RIGHT GENICULAR RFA O ctober 2024 10:05am Reason for Visit Admit Date Hypercholesteremia January 14, 2025 11 :18am Hypertension January 14, 2025 11 :18am IFG (impaired fasting glucose) January 142024 11:18am Lumbar spondylosis January 14, 2025 11 :18am Medicare annual wellness visit, subseque nt January 14, 2025 11:18am Obesity January 14, 2025 11 :18am Primary osteoarthritis of right knee Jan 11:18am Screening PSA (prostate specific antigen ) January 14, 2025 11:18am Chronic pain January 20, 2025 1 0:05am Other spondylosis with radiculopathy, vijaya mbar region January 20, 2025 10:05am Primary osteoarthritis of right knee Jan 10:05am Chief Complaint Admit Date Knee Pain October 29, 2024 7:42 am Wellness January 14, 2025 11 :18am F/U 3 MONTHS AFTER RIGHT GENICULAR RFA O ct2024 10:05am OP SP RT KNEE PAIN PER TPF January 23, 2025 12:37pm Family History No Family History Records Found [...] (unrecognized sec tion and content) Team Status: Active Member Role Status Dates Ze Howard DO Primary Care Provider Active Team Status: Active Member Role Status Dates Ze Howard DO Primary Care Provider Active Start: October 29, 2024 Mark Harris MD Attending Provider Active Sta rt: October 29, 2024 Mark Harris MD Other Provider Active Start: October 29, 2024 Team Status: Inactive Member Role Status Dates Ze Howard DO Primary Care Provider Active Start: January 14, 2025 End: January 14, 2025 Ze Howard DO Attending Provider Active Sta rt: January 14, 2025 End: January 14, 2025 Team Status: Inactive Member Role Status Dates Ze Howard DO Primary Care Provider Active Mandeep Ortiz MD Attending Provider Active Team Status: Inactive [...] 18, 2023 End: April 18, 2023 Mark Harris MD Attending Provider Active Sta rt: April [...] Sta rt: October 14, 2024 Team Status: Inactive Member Role Status Dates Ze Howard DO Primary Care Provider Active Start: January 20, 2025 End: January 20, 2025 Mark Harris MD Attending Provider Active Sta rt: January 20, 2025 End: January 20, 2025 Team Status: Inactive Member Role Status Dates Ze Howard DO Primary Care Provider Active Start: January 23, 2025 End: January 23, 2025 Jesus Aiken II, MD Attending Provider Active Start: January 23, 2025 End: January 23, 2025 Goals (unrecognized section and content) Goals may be documented in a n alternate section (unrecognized sect ion and content) No Status Records FoundNo Status Records FoundNo Status Records Found INFORMATION SOURCE (unrecogn ized section and content) DATE CREATED AUTHOR 03/02/2022 [facility] DATE CREATED AUTHOR AUTHOR'S ORGANIZ ATION 11/10/2024 [facility] DATE CREATED AUTHOR AUTHOR'S ORGANIZ ATION 01/23/2025 [facility] FOR RECORDS PERTAINING TO PATIENTS WHO ARE [...] BE BASED ON THE PRIMARY CLINICAL RECORDS. [facility] [employer] [facility]. provides no warranty or guarantee of the accuracy or completeness of information in this document.
== END 2025-01-24 10:55 | disposition home or self-care (01) ==
LOC: LAB 10:57
PROVIDERS: PCP Internal Medicine; Visit Provider Orthopaedic Surgery
DX: Z01.818 Encounter for other preprocedural examination (principal); R73.01 Impaired fasting glucose; M47.816 Spondylosis without myelopathy or radiculopathy, lumbar region; E55.9 Vitamin D deficiency, unspecified
CPT/HCPCS: 36415; 80323; 82306; 83036; 87081